=== PATIENT | female | born 1980 | race Caucasian/White ===

== ENCOUNTER 2024-04-19 15:20 | Emergency (ER) | payer BC, SELFPAY ==
--- NOTE | 2024-04-19 15:23 | ED.GENADULT ---
HPI - General Adult General Chief complaint: Urogenital-Female Stated complaint: needs prescription refill Time Seen by Provider: 04/19/24 15:24 Source: patient, RN notes reviewed and old records reviewed Mode of arrival: ambulatory Limitations: no limitations History of Present Illness HPI narrative: 44-year-old female presents to the [facility] requesting a refill on her Flomax. Had stents placed approximately 1 month ago. Reports trying to call his urologist has not gotten back to her She is due to have the stents removed at 9:30 a.m. at [facility] on the 21 of April, 2 days from Related Data Home Medications ?Medication ?Instructions ?Recorded ?Confirmed ?Last Taken ?Type bupropion HCl 150 mg 24 hr tablet, mg PO 03/13/24 Unknown History extended release levofloxacin 750 mg tablet mg 03/13/24 Unknown History metoprolol succinate 50 mg mg PO 03/13/24 Unknown History tablet,extended release 24 hr Allergies Allergy/AdvReac Type Severity Reaction Status Date / Time ampicillin Allergy Unknown Unknown Verified 04/19/24 15:29 fentanyl Allergy Unknown Unknown Verified 04/19/24 15:29 ketorolac Allergy Unknown Unknown Verified 04/19/24 15:29 meperidine Allergy Unknown Unknown Verified 04/19/24 15:29 metoclopramide Allergy Unknown Unknown Verified 04/19/24 15:29 morphine Allergy Unknown Unknown Verified 04/19/24 15:29 Penicillins Allergy Unknown Unknown Verified 04/19/24 15:29 promethazine Allergy Unknown Unknown Verified 04/19/24 15:29 Review of Systems Review of Systems: All systems reviewed & are unremarkable except as noted in HPI and below Constitutional: Constitutional: Reports no additional constitutional complaints ENT: Reports system reviewed and no additional complaints, except as documented Cardiovascular: Cardiovascular: Reports no additional cardiovascular complaints, Denies chest pain and Denies dyspnea Respiratory: Respiratory: Reports no additional respiratory complaints, Denies chest congestion, Denies cough and Denies dyspnea Musculoskeletal: Musculoskeletal: Reports no additional musculoskeletal complaints Integumentary/Breasts: Skin/Breast: Reports system reviewed and no additional complaints, except as docu PMFSH Past Medical History Medical History Depression Kidney stone Palpitations Surgical History Surgical History History of tonsillectomy H/O: hysterectomy Status post laser lithotripsy of ureteral calculus ureteral stent Family History Family History Mother Depression Hypertension Family history of elevated blood lipids Other Diabetes mellitus Family history of tuberculosis Social History Social History Smoking status: Unknown if ever smoked Alcohol intake: never Substance use: unknown Living arrangements: with family Gender identity (if verbalized by the patient): Female Comments At the time of my signature, I reviewed and agree with the nursing past medical, surgical, social, and family history. There is no relevant family history pertinent to the patient complaint. Exam Const: General: cooperative, healthy appearing, comfortable, no acute distress, well developed, alert and well nourished Nutritional Appearance: well nourished Orientation/consciousness: patient oriented x3 Limitations: no limitations HENMT: Head: normal to inspection Eyes: General: appearance normal, both eyes and all related structures Alignment and Position: alignment normal Neck: Neck: normal visual inspection, full ROM, no lymphadenopathy and no meningeal signs Chest: Chest palpation & inspection: normal inspection of the chest Resp: Effort & Inspection: normal respiratory effort and able to speak in complete sentences Auscultation: clear to auscultation bilaterally, no crackles, no rales, no rhonchi and no wheezes Cardio: Rate: regular rate : General: Yes no CVA tenderness Skin: General skin exam: normal color and no rashes or lesions noted Neuro: General: patient oriented x3, gait normal, moves all extremities and no meningeal signs Cognition (Neuro): normal cognition Speech: normal speech Gait exam (Neuro): Normal gait present Extrem: General: normal to inspection, full ROM, capillary refill normal and normal gait Psych: Appearance: grossly normal and well kempt Mental Status: mental status grossly normal Speech and movement: Normal speech and movement present and Clear speech present Affect: normal affect Attitude: cooperative Course Course Level of Care: Express Care Visit Vital Signs Vital signs: Vital Signs Temperature 98.5 F 04/19/24 15:24 Pulse Rate 85 04/19/24 15:24 Respiratory Rate 18 04/19/24 15:24 Blood Pressure 101/77 04/19/24 15:24 Pulse Oximetry 100 04/19/24 15:24 Oxygen Delivery Room Air 04/19/24 15:24 Temperature 98.5 F 04/19/24 15:24 Pulse Rate 85 04/19/24 15:24 Respiratory Rate 18 04/19/24 15:24 Blood Pressure 101/77 04/19/24 15:24 Pulse Oximetry 100 04/19/24 15:24 Oxygen Delivery Room Air 04/19/24 15:24 Reviewed Medical Decision Making MDM Narrative Medical decision making narrative: Patient sitting comfortably in exam room. Nontoxic, vitals stable. Patient in no acute distress Patient presents for a refill on Flomax. Will give a week supply. Is scheduled to appointment with 2 days. Patient appropriate for outpatient treatment with the Discharge instructions reviewed with patient, as well as provided in writing per nursing staff. The instructions also include specific and strict return/GO TO THE ER as well as f/u information. All questions have been answered, and the patient deny any further questions with discharge and discharge plan. Some parts of this dictation were generated by voice recognition software and may contain typographical and/or grammatical inaccuracies. Differential Diagnosis Differential Diagnosis: Medication refill kidney stone it is Medical Records Medical records reviewed: Yes I reviewed the external patient's medical records. Vital Signs Vital Signs: Vital Signs Temperature 98.5 F 04/19/24 15:24 Pulse Rate 85 04/19/24 15:24 Respiratory Rate 18 04/19/24 15:24 Blood Pressure 101/77 04/19/24 15:24 Pulse Oximetry 100 04/19/24 15:24 Oxygen Delivery Room Air 04/19/24 15:24 Temperature 98.5 F 04/19/24 15:24 Pulse Rate 85 04/19/24 15:24 Respiratory Rate 18 04/19/24 15:24 Blood Pressure 101/77 04/19/24 15:24 Pulse Oximetry 100 04/19/24 15:24 Oxygen Delivery Room Air 04/19/24 15:24 Reviewed Lab Data Lab results reviewed: Yes I reviewed the patient's lab results. Labs: Reviewed Critical Care Time Critical Care Time Critical Care Time: No Discharge Plan Discharge Clinical Impression: Medication refill, History of kidney stones Patient Disposition: Home, Self-Care Condition: Stable Instructions: Antibiotic Form, Kidney Stones (ED) Additional Instructions: Follow-up this week as already scheduled with your urologist Patient Language: Bulgarian Prescriptions: New tamsulosin [Flomax] 0.4 mg capsule 0.4 mg PO DAILY Qty: 7 0RF No Action metoprolol succinate 50 mg tablet extended release 24 hr PO levofloxacin 750 mg tablet bupropion HCl 150 mg tablet extended release 24 hr PO cetirizine [Zyrtec] 10 mg tablet 10 mg PO DAILY Qty: 20 0RF phenylephrine HCl [Sudafed PE] 10 mg tablet 10 mg PO Q4-6H PRN (Reason: nasal congestion) Qty: 20 0RF guaifenesin [Tussin] 100 mg/5 mL liquid 200 mg PO Q4H PRN (Reason: cough) Qty: 473 0RF Follow-up/Referrals: PHYSICIAN NOT ON STAFF,NONSTAFF [Primary Care Provider] - Stand Alone Forms: Work/School Release IP Time of Disposition: 15:36
[2024-04-19 15:24] VITALS: BP 101/77; PULSE 85; RESP 18; TEMP 36.9; O2SAT 100
--- OUTSIDE RECORDS SUMMARY | 2024-04-19 15:24 | XMS_ITS | Clinical Summary ---
Author Organization [facility] Address [address] [place] [id number] Care Team Providers Care Accounting File Clerk Name Role Phone Salomon Jones MD Primary Care Provider [phone] Allergies Active Allergy Reactions Criticality Noted Date Comments Ampicillin Rash,Hives Reaction: Rash, , Reaction: Hives, Diphenhydramine Other (See comments) Low 08/14/2017 Restless legs and anxiety Cyclobenzaprine Hydroxyzine Other (See comments) Low 08/14/2017 restlessness Ketorolac Nausea only,Vomiting Reaction: NAUSEA, VOMITING, , Metoclopramide Promethazine Other (See comments) Reaction: Other, Medications buPROPion XL (WELLBUTRIN XL) 150 mg 24 hr tablet take 1 tablet by oral route every day 30 3 08/08/2014 Active buPROPion XL (WELLBUTRIN XL) 300 mg 24 hr tablet take 1 tablet by oral route every day 30 3 08/18/2014 Active metoprolol (LOPRESSOR) 50 mg tablet Take 75 mg by mouth 2 (two) times a day. Active busPIRone (BUSPAR) 15 mg tabletIndication s:Generalized Anxiety Disorder Take 15 mg by mouth 2 (two) times a day. Active Active Problems Problem Noted Date Diagnosed Date Irritable bowel syndrome with diarrhea 8 Overview (07/23/2017): Added automatically from request for surgery [id number] History of colon polyps 07/23/2017 Overview (07/23/2017): Added automatically from request for surgery [id number] Palpitations 08/08/2014 Overview (06/05/2016): Palpitations Depression 08/08/2014 Overview (06/05/2016): Depression Cyclic vomiting syndrome 07/19/2009 Supraventricular tachycardia 07/19/2009 Encounters Date Type Department Care Team Description 03/04/2024 10:12 PM HEALTH CARE TECHNICIAN - 03/04/2024 11:59 PM HEALTH CARE TECHNICIAN Hospital Encounter [facility] Emergency, Room R Discharge Disposition: Discharge to home or self care 03/04/2024 12:37 PM HEALTH CARE TECHNICIAN - 03/04/2024 5:06 PM HEALTH CARE TECHNICIAN Emergency [facility] Emergency Department [address] [id number] Discharge Disposition: Left without being seen from Last 3 Months Surgical History Surgery Date Site/Laterality Comments HEMORRHOID SURGERY 03/02/2007 - 03/01/2008 Hemorrhoidectomy TONSILLECTOMY 03/02/1985 - 03/01/1986 Tonsillectomy SECTION 03/02/2002 - 03/01/2003 section PARTIAL HYSTERECTOMY partial hysterectomy APPENDECTOMY 03/02/2011 - 03/01/2012 Appendectomy CHOLECYSTECTOMY 03/02/2011 - 03/01/2012 Cholecystectomy COLONOSCOPY 08/01/2015 Medical History Medical History Date Comments Hx Other Medical 05/2014 heart palpatati ons; Comments: CLS 08/08/2014 - Anxiety disorder Anxiety Depression Depression Irritable bowel syndrome Chronic constipation Chronic diarrhea Family History Medical History Relation Name Comments Other Father Alive and well; DRS 08/10/2014 -has not seen since she was 3 y/o. Depression Mother Depression; Hyperlipidemia Mother High choleste rol; Hypertension Mother Hypertension; Relation Name Status Comments Father Alive Mother Social History Tobacco Use Types Packs/Day Years Used Date Smoking Tobacco: Former Cigarettes Q uit: 09/22/2014 Comments:Smoking History Pac ks/day: 8 Cigarettes Alcohol Use Standard Drinks/Week Comments Yes 0 (1 standard drink = 0.6 oz pur e alcohol) Personal Safety Answer Date Recorded Have you ever been in or are you currently in a harmful physical or emotional relationship or is someone making you feel afraid or unsafe? Denies 03/04/2024 Comments No Sex and Gender Information Value Date Recorded Sex Assigned at Not on file Legal Sex Female 12:38 AM HEALTH CARE TECHNICIAN Gender Identity Not on file Sexual Orientation Not on file Obstetrics History Last Filed Vital Signs Vital Sign Reading Time Taken Comments Blood Pressure 105/70 03/04/2024 12:47 PM HEALTH CARE TECHNICIAN Pulse 82 03/04/2024 12:47 PM HEALTH CARE TECHNICIAN Temperature 36.6 C (97.8 F) 03/04/2024 12:47 PM HEALTH CARE TECHNICIAN Respiratory Rate 16 03/04/2024 12:47 PM HEALTH CARE TECHNICIAN Oxygen Saturation 97% 03/04/2024 12:47 PM HEALTH CARE TECHNICIAN Inhaled Oxygen Concentration - - Weight 58.1 kg (128 lb) 03/04/2024 12:47 PM HEALTH CARE TECHNICIAN Height 154.9 cm (5' 1 ) 03/04/2024 12:47 PM HEALTH CARE TECHNICIAN Body Mass Index 24.19 03/04/2024 12:47 PM HEALTH CARE TECHNICIAN Plan of Treatment Health Maintenance Due Date Last Done Comments Breast Cancer Screening-Mammogram 1980 Depression Screening 1980 Hepatitis C Screening 1978 DTaP/Tdap/Td Vaccine (1 - Tdap) 1989 Hepatitis B Screening 1996 Regular Well Visit/Exam 18-64 1996 Influenza Vaccine (#1) 2023 Colon Cancer Screening-Colonoscopy 08/15/20272017 HPV Vaccines Aged Out No longer eligi ble based on patient's age to complete this topic Pneumococcal vaccine <65 Aged Out No longer eligible based on patient's age to complete this topic Procedures Procedure Name Priority Date/Time Associated Diagnosis Comments EGFR STAT 03/04/2024 1:10 PM HEALTH CARE TECHNICIAN DIFFERENTIAL AUTO STAT 03/04/2024 1:1 0 PM HEALTH CARE TECHNICIAN LIPASE STAT 03/04/2024 1:10 PM HEALTH CARE TECHNICIAN COMPREHENSIVE METABOLIC PANEL STAT 03/04/2024 1:10 PM HEALTH CARE TECHNICIAN CBC WITH AUTO DIFFERENTIAL STAT 03/04/2024 1:10 PM HEALTH CARE TECHNICIAN COLONOSCOPY 08/14/2017 10:18 AM CDT from Last 3 Months or Most Recently Relevant to Health Maintenance Results * eGFR (03/04/2024 1:10 PM HEALTH CARE TECHNICIAN) eGFR 80 >=60 mL/min/1. 73 m2 Comment: Interpretive Data Reference Interval Normal >/= 90 mL/min/1.73m2 Mildly decreased* 60 - 89 mL/min/1.73m2 Mildly to moderately decreased 45 - 59 mL/min/1.73m2 Moderately to severely decreased 30 - 44 mL/min/1.73m2 Severely decreased 15 - 29 mL/min/1.73m2 Kidney Failure < 15 mL/min/1.73m2 *Relative to young adult level Estimated glomerular filtration rate is determined by the 2020 CKD-EPI equation recommended by the National Kidney Foundation (A Unifying Approach to GFR Estimation: Recommendations of the NKF-ASK Task Force on Reassessing the Inclusion of Race in Diagnosing Kidney Disease, JASN 2020). The CKD-EPI equation should not be used for patients with unstable renal function and has not been validated in children and those over 70. Current interpretive data was last reviewed 2020. Blood 03/04/2024 1:10 PM HEALTH CARE TECHNICIAN 03/04/2024 1:15 PM HEALTH CARE TECHNICIAN us Parth Perdomo MD LAB BLOOD ORDERABLES Final R esult [facility] ([place]) 1 [facility] Department [place] [address] * Differential, auto (03/04/2024 1:10 PM HEALTH CARE TECHNICIAN) Pathologist [facility] Neutrophil abs 4.0 1.5 - 6.5 K/cumm Imm gran abs 0.0 0.0 - 0.1 K/cumm [facility] ([place]) Lymphocyte abs 1.1 0.8 - 3.3 K/cumm [facility] ([place]) Monocyte abs 0.7 0.2 - 0.8 K/cumm [facility] ([place]) Eosinophil abs 0.2 0.0 - 0.5 K/cumm [facility] ([place]) Basophil abs 0.0 0.0 - 0.1 K/cumm [facility] ([place]) Neutrophil pct 65.5 % [facility] ([place]) Comment: Interpretive Data Percent cell count reference ranges are not reported, since discordance with absolute values may lead to misinterpretation of CBC data. Current Interpretive Data was last revised on 2017. Imm gran pct 0.7 % [facility] ([place]) Comment: Interpretive Data Percent cell count reference ranges are not reported, since discordance with absolute values may lead to misinterpretation of CBC data. Current Interpretive Data was last revised on 2017. Lymphocyte pct 18.6 % [facility] ([place]) Comment: Interpretive Data Percent cell count reference ranges are not reported, since discordance with absolute values may lead to misinterpretation of CBC data. Current Interpretive Data was last revised on 2017. Monocyte pct 12.1 % [facility] ([place]) Comment: Interpretive Data Percent cell count reference ranges are not reported, since discordance with absolute values may lead to misinterpretation of CBC data. Current Interpretive Data was last revised on 2017. Eosinophil pct 2.4 % [facility] ([place]) Comment: Interpretive Data Percent cell count reference ranges are not reported, since discordance with absolute values may lead to misinterpretation of CBC data. Current Interpretive Data was last revised on 2017. Basophil pct 0.7 % [facility] ([place] Comment: Interpretive Data Percent cell count reference ranges are not reported, since discordance with absolute values may lead to misinterpretation of CBC data. Current Interpretive Data was last revised on 2017. Blood 03/04/2024 1:10 PM HEALTH CARE TECHNICIAN 03/04/2024 1:15 PM HEALTH CARE TECHNICIAN us Parth Perdomo MD LAB BLOOD ORDERABLES Final R esult [facility] ([place]) 1 [facility] Department of Laboratories [place], [place] [id number] * CBC with auto differential (03/04/2024 1:10 PM HEALTH CARE TECHNICIAN) WBC 6.1 3.8 - 9.9 K/cumm Hgb 13.8 11.9 - 15.5 g/dL [facility] ([place]) Hct 41.6 35.6 - 45.5 % [facility] ([place]) Plt 371 150 - 400 K/cumm [facility] ([place]) MPV 10.0 9.1 - 12.3 fL [facility] ([place]) RBC 4.61 3.90 - 5.20 M/cumm [facility] ([place]) MCV 90.2 81.3 - 96.4 fL [facility]) MCH 29.9 27.1 - 33.3 pg [facility]) MCHC 33.2 32.3 - 35.7 g/dL [facility] ([place]) RDW CV 12.6 11.1 - 14.9 % [facility]) RDW SD 41.4 35.7 - 48.1 fL [facility] ([place]) NRBC abs 0.00 0.00 - 0.01 K/cumm [facility] ([place]) Blood (Blood, Venous) 03/04/2024 1:10 PM HEALTH CARE TECHNICIAN 03/04/2024 1:15 PM HEALTH CARE TECHNICIAN Parth Pedromo MD LAB BLOOD ORDERABLES Final R esult [facility] ([place]) 1 [facility] [place] [address] * Lipase (03/04/2024 1:10 PM HEALTH CARE TECHNICIAN) Lipase 17 10 - 99 Units/L Blood (Blood, Venous) 03/04/2024 1:10 PM HEALTH CARE TECHNICIAN 03/04/2024 1:15 PM HEALTH CARE TECHNICIAN Parth Perdomo MD LAB BLOOD ORDERABLES Final R esult [facility] ([place]) 1 [facility] [place] [address] * Comprehensive metabolic panel (03/04/2024 1:10 PM HEALTH CARE TECHNICIAN) Sodium 136 135 - 145 mmol/L Potassium, pl 4.5 3.3 - 4.9 mmol/L [facility] Chloride 101 97 - 110 mmol/L [facility]) CO2 26 22 - 32 mmol/L [facility]) Anion gap 10 2 - 15 mmol/L [facility]) BUN 14 6 - 25 mg/dL [facility]) Creatinine 0.90 0.60 - 1.10 mg/dL [facility]) Glucose 97 70 - 199 mg/dL [facility] ([place]) Comment: Interpretive Data Fasting glucose >/= 126 mg/dl is diagnostic for diabetes. Fasting is defined as no caloric intake for at least 8 hours. Fasting glucose between 100 mg/dl to 125 mg/dl is diagnostic of prediabetes. In a patient with classic symptoms of hyperglycemia or hyperglycemic crisis, a random glucose >/= 200 mg/dl is diagnostic for diabetes. In the absence of unequivocal hyperglycemia, results should be confirmed by repeat testing. The classification and Diagnosis of Diabetes Diabetes Care 2021; 46: S19-S40. Current interpretive data was last revised 2022. Calcium 9.3 8.5 - 10.3 mg/dL [facility]) Bilirubin, total 0.3 0.1 - 1.2 mg/dL [facility] ([place]) Protein, pl 7.1 6.5 - 8.5 g/dL [facility]) Albumin 4.3 3.5 - 5.0 g/dL [facility]) Alk phos 64 40 - 130 Units/L [facility]) ALT 22 7 - 45 Units/L [facility] AST 24 10 - 45 Units/L [facility] ([place] Comment: Hemolysis present. Results may be affected. Slightly Hemolyzed Specimen Blood (Blood, Venous) 03/04/2024 1:10 PM HEALTH CARE TECHNICIAN 03/04/2024 1:15 PM HEALTH CARE TECHNICIAN Parth Perdomo MD LAB BLOOD ORDERABLES Final R esult [facility] ([place] 1 [facility] Department [place] [address] * COLONOSCOPY (08/14/2017 10:18 AM CDT) Anatomical Region Laterality Modality Other Narrative Procedure Note David Liz MD - 08/14/2017 10:18 AM CDT [facility] Patient Name: Parisa Padron Procedure Date: 08/14/2017 10:18 AM Date of : 1980 Admit Type: Outpatient Age: 37 Gender: Female Attending MD: David Liz M.D. Room: [facility] ENDOSCOPY ROOM 1 Note Status: Finalized Procedure: Colonoscopy Indications: Last colonoscopy: August 2015, Generalized abdominal pain, Chronic diarrhea, Diarrhea Referring MD: Lakshmi Michael M.D. Providers: David Liz M.D. Impression: - Hemorrhoids found on perianal exam. - The entire examined colon is normal. - The examined portion of the ileum was normal. - No specimens collected. Recommendation: - Discharge patient to home. - Resume previous diet. - Continue present medications. - Repeat colonoscopy in 10 years for screeningpurposes. - Return to primary care physician as previously scheduled. Medicines: Propofol per Anesthesia Complications: No immediate complications. Estimated Blood Loss: Estimated blood loss: none. Procedure: The benefits, risks and alternatives of theprocedure and sedation were discussed and informed consent was obtained. All questions were answered. Please referto the signed informed consent document in the medical record. The scope was passed under direct vision.The Colonoscope [id number] was introducedthrough the anus and advanced to the 10 cm into the ileum.The colonoscopy was performed without difficulty. The patient tolerated the procedure well. The quality of the bowel preparation was good. Findings: Hemorrhoids were found on perianal exam. The colon (entire examined portion) appeared normal. The terminal ileum appeared normal. Electronically signed by David Liz M.D. David Liz M.D. 08/14/2017 10:57:23 AM Number of Addenda: 0 Note Initiated On: 08/14/2017 10:18 AM Procedure Code(s): --- Professional --- 18397, Colonoscopy, flexible; diagnostic, including collection of specimen(s) by brushing or washing, when performed (separateprocedure) Diagnosis Code(s): --- Professional --- R19.7, Diarrhea, unspecified K52.9, Noninfective gastroenteritis and colitis, unspecified R10.84, Generalized abdominal pain K64.9, Unspecified hemorrhoids CPT copyright 2017 [employer]. All rights reserved. The codes documented in this report are preliminary and upon health information coder reviewmay be revised to meet current compliance requirements. Recognized by the [employer] for promoting quality in endoscopy David Liz MD ENDOSCOPY PROCEDURES Final Re sult from Last 3 Months or Most Recently Relevant to Health Maintenance Insurance IDPA IDDC Member Subscriber Plan / Payer (Ef fective 2017-Present) Name:Parisa HERNANDEZ Relation to Subscriber:Self Name:Parisa HERNANDEZ Payer ID:[id number] Group ID:Not on file Type:[place]ICAID [place] Address: [place] [id number] PLAN Advance Directives For more information, please contact: [phone] * Full Code (Latest Code Status on File) Date Activated Date Inactivated Comments 08/14/2017 9:43 AM 08/14/2017 1:47 PM Care Teams Accounting File Clerk Relationship Specialty Start Date End Date Salomon Jones MD PCP - General Internal Medicine 12/29/21
--- OUTSIDE RECORDS SUMMARY | 2024-04-19 15:24 | XMS_ITS ---
Author Organization [facility] Address [address] [place] [address] Care Team Providers Care [employer] Name Role Phone Farzaneh Padron Primary Care Provider Hanny Monet Unavailable Lynette Dahl Unavailable [phone] REASON FOR VISIT Aftercare Encounters Encounter Location Date Provider Diagnosis [address] [place] [address] 10/09/2023 Lynette Dahl Plan Of Treatment No Information Progress Notes * Mike GEEOB: 9 (43 yo F)Acc No.[id number]:10/09/2023 Patient: Marilu HAGAN Parisa :1980 A ge:43 Y S ex:Female Address:[address] [place], [address] * true * Date: Generated for Printi ng/Fasydneyg/eTransmitting on: 0 04/19/2024 03:24 PM SENIOR BUSINESS ARCHITECT
--- OUTSIDE RECORDS SUMMARY | 2024-04-19 15:24 | XMS_ITS | Referral Summary ---
Author Organization [facility] Address [address] [place] [address] Care Team Providers Care Network Firewall Engineer Name Role Phone Salomon Jones MD Primary Care Provider [phone] Encounters Date Type Department Care Team Description 03/04/2024 10:12 PM TALENT DEVELOPMENT ANALYST - 03/04/2024 11:59 PM TALENT DEVELOPMENT ANALYST Hospital Encounter [facility] Emergency, Room R Discharge Disposition: Discharge to home or self care 03/04/2024 12:37 PM TALENT DEVELOPMENT ANALYST - 03/04/2024 5:06 PM TALENT DEVELOPMENT ANALYST Emergency [facility] Emergency Department [address] [place] [address] Discharge Disposition: Left without being seen from Last 3 Months Allergies Active Allergy Reactions Criticality Noted Date [...] (07/23/2017): Added automatically from request for surgery [id number] History of colon polyps 07/23/2017 Overview (07/23/2017): Added automatically from request for surgery [id number] Palpitations 08/08/2014 Overview (06/05/2016): Palpitations Depression 08/08/2014 Overview (06/05/2016): Depression Cyclic vomiting syndrome 07/19/2009 Supraventricular tachycardia 07/19/2009 Social History Tobacco Use Types Packs/Day Years [...] on file Legal Sex Female 12:38 AM TALENT DEVELOPMENT ANALYST Gender Identity Not on file Sexual Orientation Not on file Last Filed Vital Signs Vital Sign Reading Time Taken Comments Blood Pressure 105/70 03/04/2024 12:47 PM TALENT DEVELOPMENT ANALYST Pulse 82 03/04/2024 12:47 PM TALENT DEVELOPMENT ANALYST Temperature 36.6 C (97.8 F) 03/04/2024 12:47 PM TALENT DEVELOPMENT ANALYST Respiratory Rate 16 03/04/2024 12:47 PM TALENT DEVELOPMENT ANALYST Oxygen Saturation 97% 03/04/2024 12:47 PM TALENT DEVELOPMENT ANALYST Inhaled Oxygen Concentration - - Weight 58.1 kg (128 lb) 03/04/2024 12:47 PM TALENT DEVELOPMENT ANALYST Height 154.9 cm (5' 1 ) 03/04/2024 12:47 PM TALENT DEVELOPMENT ANALYST Body Mass Index 24.19 03/04/2024 12:47 PM TALENT DEVELOPMENT ANALYST Plan of Treatment Not on file Procedures Procedure Name Priority Date/Time Associated Diagnosis Comments EGFR STAT 03/04/2024 1:10 PM TALENT DEVELOPMENT ANALYST DIFFERENTIAL AUTO STAT 03/04/2024 1:1 0 PM TALENT DEVELOPMENT ANALYST LIPASE STAT 03/04/2024 1:10 PM TALENT DEVELOPMENT ANALYST COMPREHENSIVE METABOLIC PANEL STAT 03/04/2024 1:10 PM TALENT DEVELOPMENT ANALYST CBC WITH AUTO DIFFERENTIAL STAT 03/04/2024 1:10 PM TALENT DEVELOPMENT ANALYST COLONOSCOPY 08/14/2017 10:18 AM CDT from Last 3 Months or Most Recently Relevant to Health Maintenance Results * eGFR (03/04/2024 1:10 PM TALENT DEVELOPMENT ANALYST) eGFR 80 >=60 mL/min/1. 73 m2 Comment: [...] last reviewed 2020. Blood 03/04/2024 1:10 PM TALENT DEVELOPMENT ANALYST 03/04/2024 1:15 PM TALENT DEVELOPMENT ANALYST us Parth Perdomo MD LAB BLOOD ORDERABLES Final R esult [facility] [place] 1 [facility] Department [place] [address] * Differential, auto (03/04/2024 1:10 PM TALENT DEVELOPMENT ANALYST) Neutrophil abs 4.0 1.5 - 6.5 K/cumm [...] revised on 2017. Monocyte pct 12.1 % [facility] ([place]) Comment: Interpretive Data [...] revised on 2017. Basophil pct 0.7 % [facility] ([place]) Comment: Interpretive Data Percent cell count reference ranges are not reported, since discordance with absolute values may lead to misinterpretation of CBC data. Current Interpretive Data was last revised on 2017. Blood 03/04/2024 1:10 PM TALENT DEVELOPMENT ANALYST 03/04/2024 1:15 PM TALENT DEVELOPMENT ANALYST Parth Perdomo MD LAB BLOOD ORDERABLES Final R esult [facility] ([place]) 1 [facility] [place] [address] * CBC with auto differential (03/04/2024 1:10 PM TALENT DEVELOPMENT ANALYST) WBC 6.1 3.8 - 9.9 K/cumm Hgb 13.8 11.9 - 15.5 g/dL [facility] ([place]) Hct 41.6 35.6 - 45.5 % [...] RDW SD 41.4 35.7 - 48.1 fL [facility]) NRBC abs 0.00 0.00 - 0.01 K/cumm [facility] ([place]) Blood (Blood, Venous) 03/04/2024 1:10 PM TALENT DEVELOPMENT ANALYST 03/04/2024 1:15 PM TALENT DEVELOPMENT ANALYST Parth Perdomo MD LAB BLOOD ORDERABLES Final R esult [facility] ([place] 1 [facility] [place] [address] * Lipase (03/04/2024 1:10 PM TALENT DEVELOPMENT ANALYST) Lipase 17 10 - 99 Units/L Blood (Blood, Venous) 03/04/2024 1:10 PM TALENT DEVELOPMENT ANALYST 03/04/2024 1:15 PM TALENT DEVELOPMENT ANALYST Parth Perdomo MD LAB BLOOD ORDERABLES Final R esult [facility] ([place]) 1 [facility] Department [place] [address] * Comprehensive metabolic panel (03/04/2024 1:10 PM TALENT DEVELOPMENT ANALYST) Sodium 136 135 - 145 mmol/L Potassium, pl 4.5 3.3 - 4.9 mmol/L [facility] Chloride 101 97 - 110 mmol/L [facility]) CO2 26 22 - 32 mmol/L [facility] Anion gap 10 2 - 15 mmol/L [facility] BUN 14 6 - 25 mg/dL [facility] Creatinine 0.90 0.60 - 1.10 mg/dL [facility] Glucose 97 70 - 199 mg/dL [facility] Comment: Interpretive Data Fasting glucose [...] classification and Diagnosis of Diabetes Diabetes Care 202; 46: S19-S40. Current interpretive data was last revised 2022. Calcium 9.3 8.5 - 10.3 mg/dL [facility] Bilirubin, total 0.3 0.1 - 1.2 mg/dL [facility] ([place] Protein, pl 7.1 6.5 - 8.5 g/dL [facility]) Albumin 4.3 3.5 - 5.0 g/dL [facility] Alk phos 64 40 - 130 Units/L [facility] ([place]) ALT 22 7 - 45 Units/L [facility] AST 24 10 - 45 Units/L [facility] ([place] Comment: Hemolysis present. Results may be affected. Slightly Hemolyzed Specimen Blood (Blood, Venous) 03/04/2024 1:10 PM TALENT DEVELOPMENT ANALYST 03/04/2024 1:15 PM TALENT DEVELOPMENT ANALYST Parth Perdomo MD LAB BLOOD ORDERABLES Final R esult [facility] ([place]) 1 [facility] Department [place] [address] * COLONOSCOPY (08/14/2017 10:18 AM CDT) Anatomical Region Laterality Modality Other Narrative Procedure Note David Liz MD - 08/14/2017 10:18 AM CDT [facility] Patient Name: Parisa Padron Procedure Date: 08/14/2017 10:18 AM Date of : 1980 Admit Type: Outpatient Age: 37 Gender: Female Attending MD: David Liz M.D. Room: [facility] ENDOSCOPY ROOM 1 Note Status: Finalized [...] scope was passed under direct vision.The Colonoscope [id number] was introducedthrough the anus and advanced to [...] 10:18 AM Procedure Code(s): --- Professional --- 80893, Colonoscopy, flexible; diagnostic, including collection of specimen(s) by brushing or washing, when performed (separateprocedure) Diagnosis Code(s): --- Professional --- R19.7, Diarrhea, unspecified K52.9, Noninfective gastroenteritis and colitis, unspecified R10.84, Generalized abdominal pain K64.9, Unspecified hemorrhoids CPT copyright 2017 [employer]. All rights reserved. The codes documented in this report are preliminary and upon orthopaedic technologist reviewmay be revised to meet current compliance requirements. Recognized by the [employer] for promoting quality in endoscopy David Liz MD ENDOSCOPY PROCEDURES Final Re sult from Last 3 Months or Most Recently Relevant to Health Maintenance Insurance PLAN [place] [id number] Advance Directives For more information, please contact: [phone] * Full Code (Latest Code Status on File) Date Activated Date Inactivated Comments 08/14/2017 9:43 AM 08/14/2017 1:47 PM Care Teams Network Firewall Engineer Relationship Specialty Start Date End Date Salomon Jones MD PCP - General Internal Medicine 12/29/21
--- OUTSIDE RECORDS SUMMARY | 2024-04-19 15:25 | XMS_ITS | Encounter Summary ---
Author Organization [facility] Address [address] [place] [address] Phone Care Team Providers Care Nickel Plater Name Role Phone Aubree Alvarez APRN, FINE CHEMICALS OPERATOR Primary Care Provider [phone]- [phone] Niranjan Valdez MD Unavailable Encounter Details Date Type Department Care Team (Late st Contact Info) Description 03/24/2024 Results Follow-Up [facility] [address] [place] [id number] Niranjan Valdez MD [address] [address] Social History Tobacco Use Types Packs/Day Years Used Date Smoking Tobacco: Former Cigarettes 0 07/01/2015 - 06/30/2016 Smokeless Tobacco: Never Alcohol Use Standard Drinks/Week Comments Not Currently 0 (1 standard drink = 0.6 oz pur e alcohol) [facility] Utilities Answer Date Recorded In the past 12 months has [employer] electric, gas, oil, or water company threatened to shut off services in your home? Patient declined 03/05/2024 Social Connection and Isolation Panel [NHANES] A nswer Date Recorded In a typical week, how many times do you talk on the phone with family, friends, or neighbors? Patient declined 03/05/2024 How often do you get togethe r with friends or relatives? Patient declined 03/05/2024 How often do you attend hindu or uatsdin serv ices? Patient declined 03/05/2024 Do you belong to any clubs o r organizations such as hindu groups, unions, fraternal or athletic groups, or school groups? Patient declined 03/05/2024 How often do you attend meet ings of the clubs or organizations you belong to? Patient declined 03/05/2024 Are you , , di vorced, , never , or living with a partner? Patient declined 03/05/2024 AUDIT-C Answer Date Recorded Q1: How often do you have a drink containing alc ohol? Patient declined 03/05/2024 Q2: How many drinks containi ng alcohol do you have on a typical day when you are drinking? Patient declined 03/05/2024 Q3: How often do you have si x or more drinks on one occasion? Patient declined 03/05/2024 Overall Financial Resource Strain (CARDIA) Answe r Date Recorded How hard is it for you to pa y for the very basics like food, housing, medical care, and heating? Patient declined 03/05/2024 PHQ-2 Answer Date Recorded Total Score - Questions 1-9 7 04/2024 [facility] - Occupational Stress Questionnaire Answer Date Recorded Do you feel stress - tense, restless, nervous, or anxious, or unable to sleep at night because your mind is troubled all the time - these days? Patient declined 03/05/2024 Exercise Vital Sign Answer Date Recorde d On average, how many days pe r week do you engage in moderate to strenuous exercise (like a brisk walk)? Patient declined On average, how many minutes do you engage in exercise at this level? Patient declined 03/05/2024 Hunger Vital Sign Answer Date Recorded Within the past 12 months, y ou worried that your food would run out before you got the money to buy more. Patient declined Within the past 12 months, t he food you bought just didn't last and you didn't have money to get more. Patient declined 05/2024 PRAPARE - Transportation Answer Date Re corded In the past 12 months, has l ack of transportation kept you from medical appointments or from getting medications? Patient declined 03/05/2024 In the past 12 months, has l ack of transportation kept you from meetings, work, or from getting things needed for daily living? Patient declined 03/05/2024 Housing Stability Vital Sign Answer Shivam e Recorded In the last 12 months, was t here a time when you were not able to pay the mortgage or rent on time? Patient declined 03/05/19 25 In the past 12 months, how m any times have you moved where you were living? 0 03/05/2024 At any time in the past 12 m [facility], were you homeless or living in a assisted (including now)? 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 Simentalqs message. CT SUPPORT PROFESSIONAL CAREGIVER * Niranjan Valdez MD - 03/24/2024 4:01 PM CST Urine culture 03/22/2024 = essentially negative. KUB 03/22/2024 = left proximal ureteral stone seen. Plan: Left ureteral ESWL, possible flexible cystoscopy and stent removal. CT SUPPORT PROFESSIONAL CAREGIVER documented in this encounter Miscellaneous Notes * Telephone Encounter - Niranjan Valdez MD - 03/24/2024 3:59 PM CST Images from the original note were not included. Urine culture 03/22/2024 = essentially negative. KUB 03/22/2024 = left proximal ureteral stone seen. Plan: Left ureteral ESWL, possible cystoscopy and stent removal. CT SUPPORT PROFESSIONAL CAREGIVER documented in this encounter Plan of Treatment Upcoming Encounters Date Type Department Care Team (Latest Contact Info) Description 04/21/2024 11:40 AM DIRECT SUPPORT PROFESSIONAL CAREGIVER [facility] [address] [place] [id number] Niranjan Valdez MD #[address] [address] 04/21/2024 11:40 AM DIRECT SUPPORT PROFESSIONAL CAREGIVER - 04/21/2024 1:10 PM DIRECT SUPPORT PROFESSIONAL CAREGIVER Surgery [facility] Periop [address] [place] [address] Niranjan Valdez MD #[address] [address] LEFT URETERAL EXTRACORPORAL SHOCKWAVE LITHOTRIPSY, [place] STONE CONF FOR 04/21 AT 1200 - JS Scheduled Procedures Name Priority Associated Diagnoses Date/Ti id ESWL LEFT KIDNEY STONE 04/21/2024 11:40 AM DIRECT SUPPORT PROFESSIONAL CAREGIVER CYSTOSCOPY FLEXIBLE LEFT KIDNEY STONE 04/21/2024 11:40 AM DIRECT SUPPORT PROFESSIONAL CAREGIVER CYSTO STENT REMOVAL (SINGLE/BILATERAL) LEFT KIDNEY STONE 04/21/2024 11:40 AM DIRECT SUPPORT PROFESSIONAL CAREGIVER documented as of this encounter Visit Diagnoses Not on filedocumented in this encounter Additional Health Concerns Assessment Noted Time PHQ-9 Depression Total Score: 7 03/03/19 1:52 PM DIRECT SUPPORT PROFESSIONAL CAREGIVER documented as of this encounter Care Teams Nickel Plater Relationship Specialty Start Date End Date Aubree Alvarez, CERTIFIED EMERGENCY VEHICLE TECHNICIAN, FINE CHEMICALS OPERATOR [address] [place] [address] PCP - General Certified Nurse Practitioner 03/01/24 Niranjan Valdez MD #[address] [address] Consulting Physician Urology 03/14/24 documented as of this encounter
--- OUTSIDE RECORDS SUMMARY | 2024-04-19 15:25 | XMS_ITS | Encounter Summary ---
Author Organization [facility] Address [address] [place] [address] Phone Care Team Providers Care Wrap Yarn Sorter Name Role Phone Provider, None Primary Care Provider UnavailAubree Sexton APRN, STAMP PRESS OPERATOR Primary Care Provider [phone] Mana Hinson Unavailable Unavailable Niranjan Valdez MD Unavailable Reason for Visit * Reason Comments Medication Refill Encounter Details Date Type Department Care Team (Late st Contact Info) Description 04/04/2021 Refill [facility] [place] #[address] [place] [phone] Jennifer Mcwilliams, [facility] [address] [place] [address] Medication Refill Social History Tobacco Use Types Packs/Day Years Used Date Smoking Tobacco: Former Cigarettes 0 07/01/2015 - 06/30/2016 Smokeless Tobacco: Never Alcohol Use Standard Drinks/Week Comments No 0 (1 standard drink = 0.6 oz pur e alcohol) Sexually Active Control Partners Comments Yes Male Comments No Sex and Gender Information Value Date Recorded Sex Assigned at Female 03/05/2024 12:21 AM DRIVER SUPERVISOR Legal Sex Female 8:44 PM CDT Gender Identity Female 03/05/2024 12:21 AM DRIVER SUPERVISOR Sexual Orientation Not on file 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 Not on file documented as of this encounter Plan of Treatment Upcoming Encounters Date Type Department Care Team (Latest Contact Info) Description 04/21/2024 11:40 AM DRIVER SUPERVISOR [facility] 1 [facility] [place] [address] Niranjan Valdez MD [address] [address] 04/21/2024 11:40 AM DRIVER SUPERVISOR - 04/21/2024 1:10 PM DRIVER SUPERVISOR [facility] [address] [place] [address] Niranjan Valdez MD #[address] [address] LEFT URETERAL EXTRACORPORAL SHOCKWAVE LITHOTRIPSY, [facility] ST[facility] CONF FOR 04/21 AT 1200 - JS Scheduled Procedures Name Priority Associated Diagnoses Date/Ti me ESWL LEFT KIDNEY STONE 04/21/2024 11:40 AM DRIVER SUPERVISOR CYSTOSCOPY FLEXIBLE LEFT KIDNEY STONE 04/21/2024 11:40 AM DRIVER SUPERVISOR CYSTO STENT REMOVAL (SINGLE/BILATERAL) LEFT KIDNEY STONE 04/21/2024 11:40 AM DRIVER SUPERVISOR documented as of this encounter Visit Diagnoses Diagnosis Tachycardia Tachycardia, unspecified documented in this encounter Additional Health Concerns Assessment Noted Time PHQ-9 Depression Total Score: 16 018 10:00 AM CDT documented as of this encounter Care Teams Wrap Yarn Sorter Relationship Specialty Start Date End Date Provider, None [place] PCP - General 11/26/21 02/29/24 Aubree Alvarez, FLOWER PICKER, STAMP PRESS OPERATOR [address] [place] [address] PCP - General Certified Nurse Practitioner 03/01/24 Mana Hinson Health Customer Security Clerk 03/03/24 03/18/24 Niranjan Valdez MD #[address] [address] Consulting Physician Urology 03/14/24 documented as of this encounter
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
--- OUTSIDE RECORDS SUMMARY | 2024-04-19 15:25 | XMS_ITS | Clinical Summary ---
Author Organization [facility] Address [address] [place] [address] Phone Care Team Providers Care Log Haul Operator Name Role Phone Aubree Alvarez APRN, DESIGN CONSULTANT Primary Care Provider [phone] Niranjan Valdez MD Unavailable Allergies Active Allergy Reactions Criticality Noted Date Comments Ampicillin Unknown 01/23/2015 Diphenhydramine Hcl (Sleep) Anxiety 02/14/2015 Prochlorperazine Maleate Anxiety 02/14/2015 Fentanyl Other (see Comments) 03/04/2024 Restless legs Metoclopramide Hcl Other (see Comments) 04/08/2015 STATES CAUSES LEG CRAMPS Ketorolac Tromethamine Rash Medium 01/23/2015 Medications metoprolol tartrate (LOPRESSOR) 50 MG TabletIndicati ons:Tachycardi a Take 1 Tab by mouth 2 times daily. 180 Tab 3 8 Active buPROPion (WELLBUTRIN) 150 MG XL tablet Take 1 Tablet by mouth every morning. 90 Tablet 4 Active ondansetron (Zofran) 4 MG Tablet Take 1 Tablet by mouth every 8 hours as needed for Nausea - 1st line. 30 Tablet 5 Active baclofen (LIORESAL) 10 MG Tablet Take 1 Tablet by mouth every 8 hours as needed for Muscle spasms. 90 Tablet 5 Active oxybutynin (DITROPAN) 5 MG Tablet Take 1 Tablet by mouth every 12 hours as needed (bladder spasms) for up to 180 doses. 180 Tablet 5 Active naloxone HCl (Narcan) 4 MG/0.1ML Liquid 1 [place] by Nasal route as needed for Opioid Reversal. Administer in one nostril for symptoms of overdose (severe sleepiness, breathing problems, not responsive). Call 911. May repeat 1 spray in alternate nostril in 2-3 minutes if needed. 2 Each 5 Active cetirizine (ZyrTEC) 10 MG Tablet Take 10 mg by mouth daily. 5 Active metoprolol Succinate (TOPROL-XL) 50 MG TABLET SR 24 HR Take 50 mg by mouth 2 times daily. 4 Active tamsulosin (FLOMAX) 0.4 MG Capsule Take 1 Capsule by mouth daily. 5 Active oxyCODONE (ROXICODONE) 5 MG TabletIndicati ons:Kidney stone Take 1 Tablet by mouth every 6 hours as needed for Severe pain. 8 Tablet 5 Active levoFLOXacin (LEVAQUIN) 750 MG Tablet Take 1 Tablet by mouth daily for 12 days. 12 Tablet 5 03/20/19 25 oxyCODONE (ROXICODONE) 5 MG TabletIndicati ons:Kidney stone Take 1 Tablet by mouth every 6 hours as needed for Severe pain. 8 Tablet 5 03/28/19 25 Discontinu ed(Reorder ) Active Problems Problem Noted Date Diagnosed Date Insomnia 01/26/2018 Vitamin D deficiency 07/14/2017 Anxiety 04/08/2015 Tachycardia 04/08/2015 Intractable nausea and vomiting 04/08/2015 Hypokalemia 04/08/2015 Chest pain, non-cardiac 04/08/2015 Depression 01/23/2015 Weight loss 01/23/2015 Irritable bowel syndrome with diarrhea 5 Resolved Problems Problem Noted Date Diagnosed Date Resolved Date Kidney stone 03/05/2024 03/08/2024 Nephrolithiasis 03/05/2024 03/08/2024 TIA (transient ischemic attack) 03/08/2024 Encounters Date Type Department Care Team Description 04/13/2024 Travel 04/07/2024 Telephone [facility] [address] [place] [address] Niranjan Valdez MD Medication Management 03/31/2024 Telephone [facility] [address] [place] [address] Niranjan Valdez MD 03/28/2024 Refill [facility]IAN [facility] [address] [place] [address] Niranjan Valdez MD Medication Refill 03/24/2024 Results Follow-Up [facility] PHYSICIAN [facility] [address] [place] [address] Niranjan Valdez MD 03/22/2024 8:40 AM HEALTH CARE ADMINISTRATOR - 03/22/2024 11:59 PM HEALTH CARE ADMINISTRATOR Hospital Encounter [facility] Diagnostic Radiology [address] [place] [address] Niranjan Valdez MD Discharge Disposition: Discharged to home or Selfcare 03/22/2024 8:30 AM HEALTH CARE ADMINISTRATOR Clinical Support [facility] PHYSICIAN [facility] UR[facility] [address] [place] [phone] NurseTristen Urology Kidney stone (Primary Dx) Discharge Disposition: Discharged to home or Selfcare 03/22/2024 Travel 03/18/2024 Patient Outreach [facility] [address] [place], [place] [phone] Mana Hinson Care Management (Bi-weekly monitoring call) 03/17/2024 Telephone [facility] [address] [place] [address] Niranjan Valdez MD 03/16/2024 Patient Outreach [facility] [address] [place] [address] Nessa Gusman RN Transition of Care (Week 1) 03/10/2024 Telephone [facility] UR[facility]Y [address] [place] [address] Niranjan Valdez MD 03/09/2024 Patient Outreach [facility] [address] [place] [phone] Asya Zayas, client director of Care (TCM 1st attempt) 03/05/2024 8:36 AM HEALTH CARE ADMINISTRATOR [facility]est[facility] [address] [place] [address] Ancelmo Jurado APRN, CERTIFIED ENDOSCOPY TECHNICIAN 03/05/2024 8:30 AM HEALTH CARE ADMINISTRATOR - 03/05/2024 9:35 AM HEALTH CARE ADMINISTRATOR [facility] [address] [place] [address] Niranjan Valdez MD CYSTOSCOPY STENT INSERTION-LEFT 03/05/2024 12:11 AM HEALTH CARE ADMINISTRATOR - 03/08/2024 1:00 PM HEALTH CARE ADMINISTRATOR Hospital Encounter [facility] Intensive Care [address] [place] [address] Evens Alfonso MD Carmicheal, MD Keith Singh Satyen V, MD Kidney stone Discharge Disposition: Discharged to home or Selfcare 03/04/2024 Travel 03/03/2024 Patient Outreach [facility] [address] [place] [phone] Pamella Sorto, DERMATOLOGY PHYSICIAN Care Management ([facility]) 03/03/2024 Nurse Triage [facility] Central Call Center [address] [place] [phone] Provider, None Nasal Congestion; Cough 03/03/2024 Results Follow-Up [facility] [address] [place] [address] Aubree Alvarez, SOFTWARE APPLICATIONS ARCHITECT, DESIGN CONSULTANT 03/01/2024 11:40 AM HEALTH CARE ADMINISTRATOR Lab [facility] Primary [facility] [place] [address] [place] [address] [address] Drug addiction (HCC); Vitamin D deficiency; High risk sexual behavior, unspecified type Discharge Disposition: Discharged to home or Selfcare 03/01/2024 10:30 AM HEALTH CARE ADMINISTRATOR Office Visit [facility] - [facility] - [facility] [place] [address] Aubree Alvarez APRN, SHARLA Vitamin D deficiency (Primary Dx); Insomnia, unspecified type; Anxiety; Depression, unspecified depression type; Drug addiction (HCC); High risk sexual behavior, unspecified type; Homeless; Acute pain of right knee Discharge Disposition: Discharged to home or Selfcare 03/01/2024 Travel 02/29/2024 [facility]phone [facility] [address] [place] [phone] Provider, None New Patient from Last 3 Months Family History Medical History Relation Name Comments Heart Attack Father Stroke Father Lung Cancer Maternal Grandmother Depression Mother High Cholesterol Mother Uterine Cancer Mother Relation Name Status Comments Father Maternal Grandmother Mother Alive Social History Tobacco Use Types Packs/Day Years Used Date Smoking Tobacco: Former Cigarettes 0 07/01/2015 - 06/30/2016 Smokeless Tobacco: Never Tobacco Cessation:Counseling Given: Not Answered Alcohol Use Standard Drinks/Week Comments Not Currently 0 (1 standard drink = 0.6 oz pur e alcohol) [facility] Utilities Answer Date Recorded In the past 12 months has e electric, gas, oil, or water company threatened [...] declined 03/05/2024 How often do you attend alevism or jain serv ices? Patient declined 03/05/2024 Do you belong to any clubs o r organizations such as alevism groups, unions, fraternal or athletic groups, or [...] Total Score - Questions 1-9 7 04/2024 [facility] - Occupational Stress Questionnaire Answer Date Recorded [...] any time in the past 12 m [facility], were you homeless or living in a long term (including now)? 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 Not on file Last Filed Vital Signs Vital Sign Reading Time Taken Comments Blood Pressure 126/92 03/22/2024 8:29 AM HEALTH CARE ADMINISTRATOR Pulse 118 03/05/2024 10:15 AM HEALTH CARE ADMINISTRATOR Temperature 36.6 C (97.9 F) 03/08/2024 7:00 AM HEALTH CARE ADMINISTRATOR Respiratory Rate 16 03/05/2024 12:40 PM HEALTH CARE ADMINISTRATOR Oxygen Saturation 93% 03/22/2024 8:29 AM HEALTH CARE ADMINISTRATOR Inhaled Oxygen Concentration - - Weight 57.2 kg (126 lb) 04/13/2024 3:00 PM HEALTH CARE ADMINISTRATOR Height 154.9 cm (5' 1 ) 04/13/2024 3:00 PM HEALTH CARE ADMINISTRATOR Body Mass Index 23.81 04/13/2024 3:00 PM HEALTH CARE ADMINISTRATOR Plan of Treatment Upcoming Encounters Date Type Department Care Team (Latest Contact Info) Description 04/21/2024 11:40 AM HEALTH CARE ADMINISTRATOR Hospital Encounter [facility] Per[facility] [address] [place] [address] Niranjan Valdez MD [address] [address] 04/21/2024 11:40 AM HEALTH CARE ADMINISTRATOR - 04/21/2024 1:10 PM HEALTH CARE ADMINISTRATOR Surgery [facility] Periop [address] [place] [address] Niranjan Valdez MD [address] [address] LEFT URETERAL EXTRACORPORAL SHOCKWAVE LITHOTRIPSY, LUCA/MIDWEST STONE CONF FOR 04/21 AT 1200 - JS Scheduled Procedures Name Priority Associated Diagnoses Date/Ti me ESWL LEFT KIDNEY STONE 04/21/2024 11:40 AM HEALTH CARE ADMINISTRATOR CYSTOSCOPY FLEXIBLE LEFT KIDNEY STONE 04/21/2024 11:40 AM HEALTH CARE ADMINISTRATOR CYSTO STENT REMOVAL (SINGLE/BILATERAL) LEFT KIDNEY STONE 04/21/2024 11:40 AM HEALTH CARE ADMINISTRATOR Health Maintenance Due Date Last Done Comments TdaP Immunization 1978 Hepatitis B Immunization (1 of 3 - 19+ 3-dose series) 1997 Discussion re Starting/Frequency of Mammograms 2018 Influenza Immunization (#1) 2023 SARS-COV-2 Immunization ( season) 2023 01/27/2023 Colonoscopy 08/15/2027 08/14/2017, 12/18/2014 Colorectal Cancer Screening 08/15/2027 Respiratory Syncytial Virus (RSV) Immunization (Adult) (1 - 1-dose 75+ series) 2053 08/14/2017, 12/18/2014 Hepatitis C Virus (HCV) Screening Completed 03/01/2024 Meningococcal Immunization (ACWY) Aged Out No longer eligible b ased on patient's age to complete this topic Pneumococcal Immunization Combined Aged Out No longer eligible b ased on patient's age to complete this topic Rotavirus Immunization Aged Out No lo nger eligible based on patient's age to complete this topic Medical Devices Implanted Type Area Credit Portfolio Advisor Device Identifier Shelf Expiration Date Model / Serial / Lot Stent Ureteral 5fr 2.1fr 24cm 2 Pigtail Curve 2 Durometer Taper Tip Loprfl Graduated Polaris Ultra - [id number] Implanted:Qty : 1 on 03/05/2024 by Niranjan Valdez MD at [facility] IMPLANT Left: Ureter [employer] 07/20/2026 [id number] / [id number] / [id number] Procedures Procedure Name Priority Date/Time Associated Diagnosis Comments XR ABDOMEN KUB FLAT PLATE Routine 03/22/2024 9:06 AM HEALTH CARE ADMINISTRATOR Kidney stone CULTURE, URINE Routine 03/22/2024 8:47 AM HEALTH CARE ADMINISTRATOR Kidney stone POCT UA AUTOMATED W/O MICRO Routine 03/22/2024 8:45 AM HEALTH CARE ADMINISTRATOR Kidney stone MANUAL DIFFERENTIAL Routine 03/08/2024 5:16 AM HEALTH CARE ADMINISTRATOR CBC WITH AUTO DIFFERENTIAL Routine 03/08/2024 5:16 AM HEALTH CARE ADMINISTRATOR COMPLETE BLOOD COUNT (CBC) WITH DIFF Routine 03/08/2024 5:16 AM HEALTH CARE ADMINISTRATOR BASIC METABOLIC PANEL W/ CALCIUM TOTAL Routine 03/08/2024 5:16 AM HEALTH CARE ADMINISTRATOR RHYTHM STRIP 03/08/2024 12:00 AM HEALTH CARE ADMINISTRATOR RHYTHM STRIP 03/08/2024 12:00 AM HEALTH CARE ADMINISTRATOR RHYTHM STRIP 03/08/2024 12:00 AM HEALTH CARE ADMINISTRATOR LACTIC ACID (LACTATE) Routine 03/07/2024 5:43 AM HEALTH CARE ADMINISTRATOR MANUAL DIFFERENTIAL Routine 03/07/2024 4:42 AM HEALTH CARE ADMINISTRATOR CBC WITH AUTO DIFFERENTIAL Routine 03/07/2024 4:42 AM HEALTH CARE ADMINISTRATOR COMPLETE BLOOD COUNT (CBC) WITH DIFF Routine 03/07/2024 4:42 AM HEALTH CARE ADMINISTRATOR BASIC METABOLIC PANEL W/ CALCIUM TOTAL Routine 03/07/2024 4:42 AM HEALTH CARE ADMINISTRATOR RHYTHM STRIP 03/07/2024 12:00 AM HEALTH CARE ADMINISTRATOR RHYTHM STRIP 03/07/2024 12:00 AM HEALTH CARE ADMINISTRATOR RHYTHM STRIP 03/07/2024 12:00 AM HEALTH CARE ADMINISTRATOR RHYTHM STRIP 03/07/2024 12:00 AM HEALTH CARE ADMINISTRATOR RHYTHM STRIP 03/07/2024 12:00 AM HEALTH CARE ADMINISTRATOR LACTIC ACID (LACTATE) Routine 03/06/2024 9:37 AM HEALTH CARE ADMINISTRATOR LACTIC ACID (LACTATE) Routine 03/06/2024 6:07 AM HEALTH CARE ADMINISTRATOR CORTISOL Routine 03/06/2024 6:07 AM HEALTH CARE ADMINISTRATOR THYROID STIMULATING HORMONE (TSH) Routine 03/06/2024 6:07 AM HEALTH CARE ADMINISTRATOR URINALYSIS REFLEX IF INDICATED BY ABNORMAL RESULTS Routine 03/06/2024 6:07 AM HEALTH CARE ADMINISTRATOR CULTURE, URINE Routine 03/06/2024 6:07 AM HEALTH CARE ADMINISTRATOR PHOSPHORUS (PO4) Routine 03/06/2024 5:48 AM HEALTH CARE ADMINISTRATOR BASIC METABOLIC PANEL W/ CALCIUM TOTAL Routine 03/06/2024 5:48 AM HEALTH CARE ADMINISTRATOR MANUAL DIFFERENTIAL Routine 03/06/2024 5:47 AM HEALTH CARE ADMINISTRATOR CBC WITH AUTO DIFFERENTIAL Routine 03/06/2024 5:47 AM HEALTH CARE ADMINISTRATOR COMPLETE BLOOD COUNT (CBC) WITH DIFF Routine 03/06/2024 5:47 AM HEALTH CARE ADMINISTRATOR RHYTHM STRIP 03/06/2024 12:00 AM HEALTH CARE ADMINISTRATOR RHYTHM STRIP 03/06/2024 12:00 AM HEALTH CARE ADMINISTRATOR RHYTHM STRIP 03/06/2024 12:00 AM HEALTH CARE ADMINISTRATOR EKG SCAN 03/06/2024 12:00 AM HEALTH CARE ADMINISTRATOR RHYTHM STRIP 03/06/2024 12:00 AM HEALTH CARE ADMINISTRATOR XR CHEST SINGLE VIEW PORTABLE Stat with Interpretation 03/05/2024 4:20 PM HEALTH CARE ADMINISTRATOR XR RETROGRADE PYELOGRAM Routine 03/05/2024 9:30 AM HEALTH CARE ADMINISTRATOR CULTURE, URINE STAT 03/05/2024 9:28 AM HEALTH CARE ADMINISTRATOR LMA Routine 03/05/2024 8:52 AM HEALTH CARE ADMINISTRATOR CYSTOSCOPY RETROGRADE PYELOGRAMS WITH C-ARM 03/05/2024 8:20 AM HEALTH CARE ADMINISTRATOR LEFT KIDNEY STONE CYSTOSCOPY STENT INSERTION (SINGLE / BILATERAL) 03/05/2024 8:20 AM HEALTH CARE ADMINISTRATOR LEFT KIDNEY STONE HUMAN CHORIONIC GONADOTROPIN SCRN SERUM STAT 03/05/2024 7:47 AM HEALTH CARE ADMINISTRATOR TROPONIN I, HIGH SENSITIVITY (HSTRP) Routine 03/05/2024 7:47 AM HEALTH CARE ADMINISTRATOR EKG 12 LEAD STAT 03/05/2024 5:05 AM HEALTH CARE ADMINISTRATOR MANUAL DIFFERENTIAL STAT 03/05/2024 2:18 AM HEALTH CARE ADMINISTRATOR CBC WITH AUTO DIFFERENTIAL STAT 03/05/2024 2:18 AM HEALTH CARE ADMINISTRATOR PHOSPHORUS (PO4) Routine 03/05/2024 2:18 AM HEALTH CARE ADMINISTRATOR MAGNESIUM (MG) Routine 03/05/2024 2:18 AM HEALTH CARE ADMINISTRATOR TROPONIN I, HIGH SENSITIVITY (HSTRP) Routine 03/05/2024 2:18 AM HEALTH CARE ADMINISTRATOR COMPLETE BLOOD COUNT (CBC) WITH DIFF STAT 03/05/2024 2:18 AM HEALTH CARE ADMINISTRATOR BASIC METABOLIC PANEL W/ CALCIUM TOTAL STAT 03/05/2024 2:18 AM HEALTH CARE ADMINISTRATOR RHYTHM STRIP 03/05/2024 12:00 AM HEALTH CARE ADMINISTRATOR RHYTHM STRIP 03/05/2024 12:00 AM HEALTH CARE ADMINISTRATOR RHYTHM STRIP 03/05/2024 12:00 AM HEALTH CARE ADMINISTRATOR RHYTHM STRIP 03/05/2024 12:00 AM HEALTH CARE ADMINISTRATOR EKG SCAN 03/05/2024 12:00 AM HEALTH CARE ADMINISTRATOR CT ABDOMEN PELVIS W/O CONTRAST Stat with Interpretation 03/04/2024 11:10 PM HEALTH CARE ADMINISTRATOR CHLAMYDIA & GC DNA PROBE Routine 03/01/2024 12:01 PM HEALTH CARE ADMINISTRATOR High risk sexual behavior, unspecified type CHLAMYDIA & GC DNA PROBE > 12 Routine 03/01/2024 12:01 PM HEALTH CARE ADMINISTRATOR High risk sexual behavior, unspecified type HSV TYPE II IGG ANTIBODY Routine 03/01/2024 11:53 AM HEALTH CARE ADMINISTRATOR High risk sexual behavior, unspecified type HSV TYPE I IGG ANTIBODY Routine 03/01/2024 11:53 AM HEALTH CARE ADMINISTRATOR High risk sexual behavior, unspecified type THYROID SCREEN WITH REFLEX Routine 03/01/2024 11:53 AM HEALTH CARE ADMINISTRATOR Drug addiction (HCC) CBC WITH AUTO DIFFERENTIAL Routine 03/01/2024 11:53 AM HEALTH CARE ADMINISTRATOR Drug addiction (HCC) HEPATITIS B SURFACE ANTIBODY (HBSAB) Routine 03/01/2024 11:53 AM HEALTH CARE ADMINISTRATOR High risk sexual behavior, unspecified type HEPATITIS C ANTIBODY Routine 03/01/2024 11:53 AM HEALTH CARE ADMINISTRATOR High risk sexual behavior, unspecified type HERPES SIMPLEX 1 & 2 ANTIBODIES IGG Routine 03/01/2024 11:53 AM HEALTH CARE ADMINISTRATOR High risk sexual behavior, unspecified type SYPHILIS IGG/IGM W/REFLEX Routine 03/01/2024 11:53 AM HEALTH CARE ADMINISTRATOR High risk sexual behavior, unspecified type HIV 1 & 2 ANTIBODY & ANTIGEN SCREEN Routine 03/01/2024 11:53 AM HEALTH CARE ADMINISTRATOR High risk sexual behavior, unspecified type VITAMIN B12 Routine 03/01/2024 11:53 AM HEALTH CARE ADMINISTRATOR Drug addiction (HCC) VITAMIN D, 25 HYDROXY TOTAL Routine 03/01/2024 11:53 AM HEALTH CARE ADMINISTRATOR Vitamin D deficiency THYROID SCREEN WITH REFLEX Routine 03/01/2024 11:53 AM HEALTH CARE ADMINISTRATOR Drug addiction (HCC) LIPID PANEL Routine 03/01/2024 11:53 AM HEALTH CARE ADMINISTRATOR Drug addiction (HCC) HEMOGLOBIN A1C W/ ESTIMATED GLUCOSE Routine 03/01/2024 11:53 AM HEALTH CARE ADMINISTRATOR Drug addiction (HCC) CMP (COMPREHENSIVE METABOLIC PANEL) Routine 03/01/2024 11:53 AM HEALTH CARE ADMINISTRATOR Drug addiction (HCC) COMPLETE BLOOD COUNT (CBC) WITH DIFF Routine 03/01/2024 11:53 AM HEALTH CARE ADMINISTRATOR Drug addiction (HCC) HM COLONOSCOPY Routine 08/14/2017 from Last 3 Months or Most Recently Relevant to Health Maintenance Results * XR ABDOMEN KUB FLAT PLATE (03/22/2024 9:06 AM HEALTH CARE ADMINISTRATOR) Anatomical Region Laterality Modality Abdomen N/A Digital Radiogra phy 03/22/2024 4:13 PM HEALTH CARE ADMINISTRATOR Impressions 03/22/2024 4:16 PM HEALTH CARE ADMINISTRATOR IMPRESSION: 1. A left ureteral stent is in place. An 8 mm calculus along the proximal aspect of the stent, possibly a ureteral stone. 2. Rounded 8 mm calculus in the region of the right renal mid to lower pole, without correlate on the prior CT. Narrative 03/22/2024 4:16 PM HEALTH CARE ADMINISTRATOR EXAM DESCRIPTION: XR ABDOMEN KUB FLAT PLATE REASON FOR STUDY: dysuria, hematuria, diarrhea, lower abdominal pain x 2 weeks. Hx of left stent placement x 2 weeks ago due to kidney stones in left kidney. TECHNIQUE: Single radiographic view of the abdomen. COMPARISON: Pyelogram 03/05/2024 FINDINGS: BOWEL: Nonobstructive gas pattern. SOFT TISSUES: A left ureteral stent appears appropriately position. 8 mm calculus along the proximal ureteral stent. There is a rounded 8 mm calculus in the region of the right renal mid to lower pole, without correlate on prior CT. LINES/TUBES: None. BONES: No acute osseous abnormality. THIS IS AN ELECTRONICALLY VERIFIED FINAL REPORT 03/22/2024 4:13 PM - Electronically signed by Ancelmo Gill M.D. KR: [id number] Report ID: [id number] Reading Location: [id number] Procedure Note Ancelmo Gill MD - 03/22/2024 EXAM DESCRIPTION: XR ABDOMEN KUB FLAT PLATE REASON FOR STUDY: dysuria, hematuria, diarrhea, lower abdominal pain x 2 weeks. Hx of left stent placement x 2 weeks ago due to kidney stones in left kidney. TECHNIQUE: Single radiographic view of the abdomen. COMPARISON: Pyelogram 03/05/2024 FINDINGS: BOWEL: Nonobstructive gas pattern. SOFT TISSUES: A left ureteral stent appears appropriately position. 8 mm calculus along the proximal ureteral stent. There is a rounded 8 mm calculus in the region of the right renal mid to lower pole, without correlate on prior CT. LINES/TUBES: None. BONES: No acute osseous abnormality. THIS IS AN ELECTRONICALLY VERIFIED FINAL REPORT 03/22/2024 4:13 PM - Electronically signed by Ancelmo Gill M.D. KR: KR Report ID: [id number] Reading Location: [id number] IMPRESSION: 1. A left ureteral stent is in place. An 8 mm calculus along the proximal aspect of the stent, possibly a ureteral stone. 2. Rounded 8 mm calculus in the region of the right renal mid to lower pole, without correlate on the prior CT. Niranjan Valdez MD IM DIAGNOSTIC ORDERABLES Final Result * CULTURE, URINE (03/22/2024 8:47 AM HEALTH CARE ADMINISTRATOR) Only the most recent of3 resultswithin the time period is included. CULTURE RESULTS STAPHYLOCOCCUS EPIDERMIDIS 03/25/2024 6:54 PM HEALTH CARE ADMINISTRATOR [facility] CULTURE RESULTS STAPHYLOCOCCUS HAEMOLYTICUS 03/25/2024 6:54 PM HEALTH CARE ADMINISTRATOR [facility] Culture (Pre-Op Catheter) Non-Phlebotomy Collection / Unknown 03/22/2024 8:47 AM HEALTH CARE ADMINISTRATOR 03/22/2024 8:47 AM HEALTH CARE ADMINISTRATOR Narrative Organism Antibiotic Method Susceptibility Staphylococcus epidermidis Gentamicin [facility] II <=0.5 mcg/ml: Susceptible Staphylococcus epidermidis Linezolid [facility] II 1 mcg/ml: Susceptible Staphylococcus epidermidis Nitrofurantoin [facility] II <=16 mcg/ml: Susceptible Staphylococcus epidermidis Oxacillin [facility] II >=4 mcg/ml: Resistant Staphylococcus epidermidis Tetracycline [facility] II <=1 mcg/ml: Susceptible Staphylococcus epidermidis Trimeth/Sulfamethoxazole [facility] II 80 mcg/ml: Resistant Staphylococcus epidermidis Vancomycin [facility] II 2 mcg/ml: Susceptible Staphylococcus haemolyticus Gentamicin [facility] II <=0.5 mcg/ml: Susceptible Staphylococcus haemolyticus Linezolid [facility] II 2 mcg/ml: Susceptible Staphylococcus haemolyticus Nitrofurantoin [facility] II <=16 mcg/ml: Susceptible Staphylococcus haemolyticus Oxacillin [facility] VITEK II >=4 mcg/ml: Resistant Staphylococcus haemolyticus Tetracycline [facility] II >=16 mcg/ml: Resistant Staphylococcus haemolyticus Trimeth/Sulfamethoxazole [facility] VITEK II <=10 mcg/ml: Susceptible Staphylococcus haemolyticus Vancomycin SF VITEK II 1 mcg/ml: Susceptible us Niranjan Valdez MD MICROBIOLOGY - GENERAL ORDERABLE S Final Result [facility] [address] [place] [address], [place] * (ABNORMAL) POCT UA AUTOMATED W/O MICRO (03/22/2024 8:45 AM HEALTH CARE ADMINISTRATOR) [facility] POC UA SPECIFIC GRAVITY 1.015 URINE PH 6.0 5.0 - 9.0 POC URINE LEUKOCYTES 500 /uL(A) Negative Afsaneh/uL POC URINE NITRITE Negative Negative POC URINE PROTEIN Trace(A) Negative mg/dL POC URINE GLUCOSE Norm Negative, Norm mg/dL POC URINE KETONE Negative Negative mg/dL POC URINE UROBILINOGEN Norm Norm, 0.2 E.U./dL (mg/dL), 1 E.U./dL (mg/dL) POC URINE BILIRUBIN Negative Negative mg/dL POC URINE BLOOD INSTRUMENT 250 Titus/uL(A) Negative Titus/uL POC URINE COLOR Yellow POC URINE CLARITY Slightly Cloudy Urine 03/22/2024 8:45 AM HEALTH CARE ADMINISTRATOR Niranjan Valdez MD POINT OF CARE TESTING (MANUAL) F inal Result * (ABNORMAL) Manual Differential (03/08/2024 5:16 AM HEALTH CARE ADMINISTRATOR) Only the most recent of4 resultswithin the time period is included. BANDS % 3.0 % 03/08/2024 6:39 AM HEALTH CARE ADMINISTRATOR [facility] NEUTROPHIL[facility] % 72.0 47.0 - 73.0 % 03/08/2024 6:39 AM HEALTH CARE ADMINISTRATOR [facility] LYMPHOCYTES % 12.0(L) 18.0 - 42.0 % 03/08/2024 6:39 AM HEALTH CARE ADMINISTRATOR [facility] MONOCYTES % 11.0 4.0 - 12.0 % 03/08/2024 6:39 AM HEALTH CARE ADMINISTRATOR [facility] EOSINOPHILS % 1.0 0.0 - 5.0 % 03/08/2024 6:39 AM [facility] BASOPHILS % 1.0 0.0 - 1.0 % 03/08/2024 6:39 AM HEALTH CARE ADMINISTRATOR [facility] NEUTROPHILS ABSOLUTE 9.47(H) 1.60 - 7.70 10(3)/[facility] 03/08/2024 6:39 AM HEALTH CARE ADMINISTRATOR [facility] LYMPHOCYTES ABSOLUTE 1.51 1.30 - 3.20 10(3)/[facility] 03/08/2024 6:39 AM [facility] MONOCYTES ABSOLUTE 1.39(H) 0.20 - 1.00 10(3)/[facility] 03/08/2024 6:39 AM [facility] EOSINOPHILS ABSOLUTE 0.13 0.00 - 0.40 10(3)/[facility] 03/08/2024 6:39 AM HEALTH CARE ADMINISTRATOR [facility] BASOPHILS ABSOLUTE 0.13(H) 0.00 - 0.10 10(3)/[facility] 03/08/2024 6:39 AM [facility] WBC MORPH STATUS Normal 03/08/19 6:39 AM [facility] RBC MORPH STATUS Normal 03/08/19 6:39 AM [facility] PLATELET STATUS Normal 6:39 AM [facility] Blood Venipuncture / Unknown 03/08/2024 5:16 AM HEALTH CARE ADMINISTRATOR 03/08/2024 5:25 AM [facility] us Mariusz Tsang MD HEMATOLOGY ORDERABLES Final Res ult [facility] [address] [place] [address] * (ABNORMAL) CBC with Auto Differential (03/08/2024 5:16 AM [facility]) Only the most recent of5 resultswithin the time period is included. WBC 12.62(H) 4.00 - 12.00 10(3)/mcL 03/08/2024 6:39 AM [facility] RBC 3.59(L) 3.80 - 5.30 10(6)/mcL 03/08/2024 6:39 AM [facility] HEMOGLOBIN (HGB) 10.8(L) 12.0 - 15.8 g/dL 03/08/2024 6:39 AM [facility] HEMATOCRIT (HCT) 31.7(L) 36.0 - 47.0 % 03/08/2024 6:39 AM [facility] MCV 88.3 82.0 - 96.0 fL 03/08/2024 6:39 AM [facility] MCH 30.1 26.0 - 34.0 pg 03/08/2024 6:39 AM [facility] MCHC 34.1 31.0 - 36.0 g/dL 03/08/2024 6:39 AM [facility] PLATELET COUNT 84(L) 140 - 440 10(3)/[facility] 03/08/2024 6:39 AM [facility] RDW 13.2 11.8 - 15.5 % 03/08/2024 6:39 AM [facility] MPV 10.8 9.7 - 12.4 fL 03/08/2024 6:39 AM [facility] NRBC PER 100 WBC 0 03/08/2024 6:39 AM [facility] RESULTS ARE CONSISTENT WITH PERIPHERAL SMEAR REVIEW Yes 03/08/2024 6:39 AM [facility] Blood Venipuncture / Unknown 03/08/2024 5:16 AM HEALTH CARE ADMINISTRATOR 03/08/2024 5:25 AM HEALTH CARE ADMINISTRATOR us Mariusz Tsang MD HEMATOLOGY ORDERABLES Final Res ult [facility] [address] [place] [address] * (ABNORMAL) BMP with Ca, Total (03/08/2024 5:16 AM HEALTH CARE ADMINISTRATOR) Only the most recent of4 resultswithin the time period is included. SODIUM 142 136 - 145 mmol/L 03/08/2024 5:56 AM [facility] POTASSIUM 3.8 3.5 - 5.1 mmol/L 03/08/2024 5:56 AM [facility] CHLORIDE 114(H) 98 - 107 mmol/L 03/08/2024 5:56 AM [facility] CO2, VENOUS 22 22 - 30 mmol/L 03/08/2024 5:56 AM [facility] ANION GAP 9.8 <18.0 mmol/L 03/08/2024 5:56 AM [facility] GLUCOSE 90 70 - 99 mg/dL 03/08/2024 5:56 AM [facility] BUN 11 5 - 18 mg/dL 03/08/2024 5:56 AM [facility] CREATININE, BLOOD 0.83 0.60 - 1.00 mg/dL 03/08/2024 5:56 AM [facility] BUN/CREATININE RATIO 13 12 - 20 ratio 03/08/2024 5:56 AM [facility] CALCIUM 8.4(L) 8.7 - 10.5 mg/dL 03/08/2024 5:56 AM [facility] GFR, ESTIMATED >60 >=60 03/08/2024 5:56 AM [facility] Comment: Creatinine Clearance is the preferred criteria for selecting drug dose adjustments in renally impaired patients. The GFR is provided as additional pertinent clinical information. GFR is reported in mL/min/1.73 sq m. Calculation based on the Chronic Kidney Disease Epidemiology Collaboration (CKD- EPI) equation refit without adjustment for race. GFR, EST. >60 >=60 025 5:56 AM [facility] GFR, EST. NONAFRICAN >60 >=60 03/08/2024 5:56 AM HEALTH CARE ADMINISTRATOR [facility] Blood Venipuncture / Unknown 03/08/2024 5:16 AM HEALTH CARE ADMINISTRATOR 03/08/2024 5:25 AM HEALTH CARE ADMINISTRATOR Mariusz Tsang MD CHEMISTRY ORDERABLES Final Resu lt Performing Organization Address [facility] Co de Phone Number [facility] [address] [place] [address] * RHYTHM STRIP (03/08/2024 12:00 AM HEALTH CARE ADMINISTRATOR) Only the most recent of16 resultswithin the time period is included. 03/08/2024 us Provider Scan IMG ECG ORDERABLES Final Result Performing Organization Address [facility] de Phone Number RESULTING AGENCY * Lactic Acid (Lactate) (03/07/2024 5:43 AM HEALTH CARE ADMINISTRATOR) Only the most recent of3 resultswithin the time period is included. LACTIC ACID 1.9 0.7 - 2.0 mmol/L 03/07/2024 6:17 AM HEALTH CARE ADMINISTRATOR [facility] Blood Venipuncture / Unknown 03/07/2024 5:43 AM HEALTH CARE ADMINISTRATOR 03/07/2024 5:46 AM HEALTH CARE ADMINISTRATOR Mariusz Tsang MD CHEMISTRY ORDERABLES Final Resu lt Performing Organization Address [facility] de Phone Number [facility] [address] [place] [address] * (ABNORMAL) URINALYSIS REFLEX IF INDICATED BY ABNORMAL RESULTS (03/06/2024 6:07 AM HEALTH CARE ADMINISTRATOR) SPECIFIC GRAVITY 1.015 1.003 - 1.030 03/06/2024 7:15 AM HEALTH CARE ADMINISTRATOR [facility] URINE PH 5.0 5.0 - 9.0 03/06/2024 7:15 AM HEALTH CARE ADMINISTRATOR [facility] WBC ESTERASE 500 /uL(A) Negative 03/06/2024 7:15 AM HEALTH CARE ADMINISTRATOR [facility] NITRITE Negative Negative 03/06/2024 7:15 AM HEALTH CARE ADMINISTRATOR [facility] PROTEIN, RANDOM URINE 100 mg/dL(A) Negative 03/06/2024 7:15 AM [facility] URINE GLUCOSE, QUAL Negative Negative 03/06/2024 7:15 AM HEALTH CARE ADMINISTRATOR [facility] URINE KETONES Negative Negative 03/06/2024 7:15 AM HEALTH CARE ADMINISTRATOR [facility] UROBILINOGEN Normal Normal mg/dL 03/06/2024 7:15 AM HEALTH CARE ADMINISTRATOR [facility] URINE BLOOD 250 /uL(A) Negative titus/ul 03/06/2024 7:15 AM HEALTH CARE ADMINISTRATOR [facility] URINALYSIS COLOR Yellow 03/06/2024 7:15 AM [facility] URINALYSIS CLARITY Slightly Cloudy 03/06/2024 7:15 AM HEALTH CARE ADMINISTRATOR [facility] WBC (Urine) 21-50(A) Negative, 0-5 /hpf 03/06/2024 7:15 AM HEALTH CARE ADMINISTRATOR [facility] URINE RBC'S 51-150(A) Negative, 0-2 /hpf 03/06/2024 7:15 AM [facility] EPITHELIAL CELLS Occasional /lpf 03/06/2024 7:15 AM [facility] BACTERIA, URINE Few(A) Negative /hpf 03/06/2024 7:15 AM [facility] Urine URINE SPECIMEN COLLECTION, CLEAN CATCH / Unknown Non-Phlebotomy Collection / Unknown 03/06/2024 6:07 AM HEALTH CARE ADMINISTRATOR 03/06/2024 6:07 AM HEALTH CARE ADMINISTRATOR us Lola Hill APRN, DESIGN CONSULTANT URINE ORDERABLES Final Re sult [facility] [address] [place] [address] * Thyroid Stimulating Hormone (TSH) (03/06/2024 6:07 AM HEALTH CARE ADMINISTRATOR) TSH 0.704 0.300 - 5.000 mIU/L 03/06/2024 6:46 AM HEALTH CARE ADMINISTRATOR [facility] Blood Venipuncture / Unknown 03/06/2024 6:07 AM HEALTH CARE ADMINISTRATOR 03/06/2024 6:07 AM HEALTH CARE ADMINISTRATOR Mariusz Tsang MD CHEMISTRY ORDERABLES Final Resu lt Performing Organization Address [facility] Co de Phone Number [facility] [address] [place] [address] * Cortisol (03/06/2024 6:07 AM HEALTH CARE ADMINISTRATOR) CORTISOL 13.6 mcg/dL 03/06/2024 6:4 6 AM HEALTH CARE ADMINISTRATOR [facility] Blood Venipuncture / Unknown 03/06/2024 6:07 AM HEALTH CARE ADMINISTRATOR 03/06/2024 6:07 AM HEALTH CARE ADMINISTRATOR Narrative [facility] - 03/06/2024 6:46 AM HEALTH CARE ADMINISTRATOR AM: 4 TO 19 mcg/dL PM: Approx. Half of AM Value Mariusz Tsang MD CHEMISTRY ORDERABLES Final Resu lt Performing Organization Address [facility] Co de Phone Number [facility] [address] [place] [address] * PHOSPHORUS (PO4) (03/06/2024 5:48 AM HEALTH CARE ADMINISTRATOR) Only the most recent of2 resultswithin the time period is included. PHOSPHORUS 4.4 2.5 - 4.5 mg/dL 03/06/2024 6:37 AM HEALTH CARE ADMINISTRATOR [facility] Blood Venipuncture / Unknown 03/06/2024 5:48 AM HEALTH CARE ADMINISTRATOR 03/06/2024 5:48 AM HEALTH CARE ADMINISTRATOR us Lola Hill SOFTWARE APPLICATIONS ARCHITECT, DESIGN CONSULTANT CHEMISTRY ORDERABLES Tori l Result [facility] [address] [place] [address] * EKG SCAN (03/06/2024 12:00 AM HEALTH CARE ADMINISTRATOR) Only the most recent of2 resultswithin the time period is included. 03/06/2024 us Provider Scan IMG ECG ORDERABLES Final Result RESULTING AGENCY * XR CHEST SINGLE VIEW PORTABLE (03/05/2024 4:20 PM HEALTH CARE ADMINISTRATOR) Anatomical Region Laterality Modality Chest N/A Computed Radiogr aphy 03/05/2024 4:41 PM HEALTH CARE ADMINISTRATOR Impressions 03/05/2024 4:43 PM HEALTH CARE ADMINISTRATOR IMPRESSION: No acute cardiopulmonary abnormality. Narrative 03/05/2024 4:43 PM HEALTH CARE ADMINISTRATOR EXAM DESCRIPTION: XR CHEST SINGLE VIEW PORTABLE REASON FOR STUDY: right subclavian central line placement verification TECHNIQUE: Frontal radiographic view(s) of the chest. COMPARISON: Chest radiographs, most recent dated 10/17/2017. FINDINGS: LUNGS: Mild left basilar atelectasis and/or scarring. No focal airspace consolidation. No pleural effusion or pneumothorax. HEART/MEDIASTINUM: Cardiac silhouette normal in size. Mediastinal and hilar contours appear normal. LINES/TUBES: A right subclavian central venous catheter is noted with tip terminating over the right atrium. BONES: No acute osseous abnormality. Cholecystectomy clips are seen within the right upper abdominal quadrant. THIS IS AN ELECTRONICALLY VERIFIED FINAL REPORT 03/05/2024 4:41 PM - Electronically signed by Saul Fulton M.D. MF: [id number] Report ID: [id number] Reading Location: [id number] Procedure Note Saul Fulton, - 03/05/2024 EXAM DESCRIPTION: XR CHEST SINGLE VIEW PORTABLE REASON FOR STUDY: right subclavian central line placement verification TECHNIQUE: Frontal radiographic view(s) of the chest. COMPARISON: Chest radiographs, most recent dated 10/17/2017. FINDINGS: LUNGS: Mild left basilar atelectasis and/or scarring. No focal airspace consolidation. No pleural effusion or pneumothorax. HEART/MEDIASTINUM: Cardiac silhouette normal in size. Mediastinal and hilar contours appear normal. LINES/TUBES: A right subclavian central venous catheter is noted with tip terminating over the right atrium. BONES: No acute osseous abnormality. Cholecystectomy clips are seen within the right upper abdominal quadrant. THIS IS AN ELECTRONICALLY VERIFIED FINAL REPORT 03/05/2024 4:41 PM - Electronically signed by Saul Fulton M.D. MF: [id number] Report ID: [id number] Reading Location: [place] [address] IMPRESSION: No acute cardiopulmonary abnormality. Mariusz Tsang MD IMG DIAGNOSTIC ORDERABLES Final Result * XR RETROGRADE PYELOGRAM (03/05/2024 9:30 AM HEALTH CARE ADMINISTRATOR) Niranjan Valdez MD IMG FLUOROSCOPY ORDERABLES Final Result * LMA (03/05/2024 8:52 AM HEALTH CARE ADMINISTRATOR) Narrative Ancelmo Jurado APRN, CRNA - 03/05/2024 8:52 AM HEALTH CARE ADMINISTRATOR Ancelmo Jurado APRN, CRNA 03/05/2024 8:54 AM LMA Staffing Performed: resident/CERTIFIED ENDOSCOPY TECHNICIAN Resident/CERTIFIED ENDOSCOPY TECHNICIAN: Ancelmo Jurado APRN, CRNA Performed by: Ancelmo Jurado APRN, CRNA Authorized by: Ancelmo Jurado APRN, CRNA Airway Details Overall Difficulty: Easy Preoxygenated: Yes Ease of Mask Ventilation: Not attempted LMA Type: Disposable LMA Size: 4 Adequate seal established: Yes LMA placement confirmed by: bilateral breath sounds, CO2 detection Atraumatic LMA Placement Ancelmo Jurado APRN, CRNA ANESTHESIA ORDERAB LES Final Result * TROPONIN I, HIGH SENSITIVITY (HSTRP) (03/05/2024 7:47 AM HEALTH CARE ADMINISTRATOR) Only the most recent of2 resultswithin the time period is included. TROPONIN I, HIGH SENSITIVITY- [place] <3 <=14 ng/L 03/05/2024 8:22 AM HEALTH CARE ADMINISTRATOR [facility] Comment: High-sensitivity troponin I results are reported in ng/L making the result appear to be 1,000 times higher than the contemporary troponin I value which is reported in ng/ml. Results from [place]. Blood Venipuncture / Unknown 03/05/2024 7:47 AM HEALTH CARE ADMINISTRATOR 03/05/2024 7:47 AM HEALTH CARE ADMINISTRATOR us Lola Hill APRN, CNP CHEMISTRY ORDERABLES Tori l Result Performing Organization Address City/[facility]/ZIP Co de Phone Number [facility] [address] [place] [address] * Human Chorionic Gonadotropin Scrn Serum (03/05/2024 7:47 AM HEALTH CARE ADMINISTRATOR) Pathologist [facility] PREG-HCG Negative 03/05/2024 8:01 AM HEALTH CARE ADMINISTRATOR [facility] Blood Venipuncture / Unknown 03/05/2024 7:47 AM HEALTH CARE ADMINISTRATOR 03/05/2024 7:47 AM HEALTH CARE ADMINISTRATOR us Anayeli Artis MD CHEMISTRY ORDERABLES Final Result Performing Organization Address City/[facility]/ZIP Co de Phone Number [facility] [address] [place] [address] * EKG 12 LEAD (03/05/2024 5:05 AM HEALTH CARE ADMINISTRATOR) Ventricular Rate 111 BPM EXTERNAL EKG Atrial Rate 111 BPM EXTERNAL EKG P-R Interval 136 ms EXTERNAL EKG QRS Duration 76 ms EXTERNAL EKG Q-T Duration 318 ms EXTERNAL EKG QTC CALCULATION 432 ms EXTERNAL EKG P Monitor 71 degrees EXTERNAL EKG R Monitor 73 degrees EXTERNAL EKG T Monitor 88 degrees EXTERNAL EKG 03/05/2024 5:05 AM HEALTH CARE ADMINISTRATOR Impressions EXTERNAL EKG - 03/07/2024 11:35 AM HEALTH CARE ADMINISTRATOR Sinus tachycardia Otherwise normal ECG No significant change was found ~ Confirmed by Kranthi Thomas ([id number]) on 03/07/2024 11:35:19 AM Narrative Procedure Note Kranthi Thomas MD - 03/07/2024 IMPRESSION: Sinus tachycardia Otherwise normal ECG No significant change was found ~ Confirmed by Kranthi Thomas ([id number]) on 03/07/2024 11:35:19 AM us Lola Hill APRN, CNP IMG ECG ORDERABLES Final Result EXTERNAL EKG * MAGNESIUM (MG) (03/05/2024 2:18 AM HEALTH CARE ADMINISTRATOR) MAGNESIUM 1.8 1.6 - 2.6 mg/dL 03/05/2024 5:08 AM HEALTH CARE ADMINISTRATOR [facility] Blood Venipuncture / Unknown 03/05/2024 2:18 AM HEALTH CARE ADMINISTRATOR 03/05/2024 3:22 AM HEALTH CARE ADMINISTRATOR us Lola Hill APRN, CNP CHEMISTRY ORDERABLES Tori l Result [facility] [place] [address] * CT ABDOMEN PELVIS W/O CONTRAST (03/04/2024 11:10 PM HEALTH CARE ADMINISTRATOR) Anatomical Region Laterality Modality Abdomen N/A Computed Tomogra phy 03/04/2024 11:2 9 PM HEALTH CARE ADMINISTRATOR Impressions 03/04/2024 11:31 PM HEALTH CARE ADMINISTRATOR IMPRESSION: 1 cm x 8 mm stone at the left ureteropelvic junction with moderate to severe left hydronephrosis. 4 cm left ovarian cyst is suspected. Follow-up, nonemergent ultrasound to ensure resolution is recommended. Narrative 03/04/2024 11:31 PM HEALTH CARE ADMINISTRATOR EXAM DESCRIPTION: CT ABDOMEN PELVIS W/O CONTRAST REASON FOR STUDY: Flank pain, kidney stone suspected TECHNIQUE: CT scan of the abdomen and pelvis performed without intravenous and without oral contrast using helical scanning technique. Reconstructed coronal and sagittal MPR images reviewed. All images stored on PACS. Automated exposure control was used as a dose optimization technique for this examination. COMPARISON: 04/17/2015 FINDINGS: The sensitivity for detection of visceral lesions is diminished without the use of intravenous contrast. LOWER CHEST: No significant pulmonary abnormalities. No effusion. LIVER: Normal size. No identified cystic or solid masses. GALLBLADDER: Unremarkable BILE DUCTS: No intrahepatic or extrahepatic ductal dilatation. SPLEEN: Normal size. No focal lesions. PANCREAS: No identified cystic or solid masses. No significant calcifications. No adjacent inflammation or peripancreatic fluid collections. Pancreatic duct not dilated. ADRENALS: Normal. KIDNEYS/URINARY TRACT: Extensive stranding fluid is seen around the left kidney. Moderate to severe left hydronephrosis noted. There is a 1 cm x 8 mm stone at the left ureteropelvic junction. Calcification seen on image number 97 at the anteromedial aspect of the left psoas muscle appears to have been present in the same position on the prior study. Urinary bladder is unremarkable. GI: Somewhat prominent amount of stool is seen in the proximal colon without evidence obstruction. The appendix has apparently been removed. PERITONEUM: No ascites or free air. RETROPERITONEUM: No mass or adenopathy. REPRODUCTIVE: 4 cm left ovarian cyst is suspected. Some calcification is also noted in the left ovary. VASCULATURE: No abdominal aortic aneurysm. MUSCULOSKELETAL: No significant abnormality. OTHER: No other abnormality. THIS IS AN ELECTRONICALLY VERIFIED FINAL REPORT 03/04/2024 11:29 PM - Electronically signed by Ancelmo Hong M.D. KH: MARTINA Report ID: [id number] Reading Location: [id number] Procedure Note Ancelmo Hong MD - 03/04/2024 EXAM DESCRIPTION: CT ABDOMEN PELVIS W/O CONTRAST REASON FOR STUDY: Flank pain, kidney stone suspected TECHNIQUE: CT scan of the abdomen and pelvis performed without intravenous and without oral contrast using helical scanning technique. Reconstructed coronal and sagittal MPR images reviewed. All images stored on PACS. Automated exposure control was used as a dose optimization technique for this examination. COMPARISON: 04/17/2015 FINDINGS: The sensitivity for detection of visceral lesions is diminished without the use of intravenous contrast. LOWER CHEST: No significant pulmonary abnormalities. No effusion. LIVER: Normal size. No identified cystic or solid masses. GALLBLADDER: Unremarkable BILE DUCTS: No intrahepatic or extrahepatic ductal dilatation. SPLEEN: Normal size. No focal lesions. PANCREAS: No identified cystic or solid masses. No significant calcifications. No adjacent inflammation or peripancreatic fluid collections. Pancreatic duct not dilated. ADRENALS: Normal. KIDNEYS/URINARY TRACT: Extensive stranding fluid is seen around the left kidney. Moderate to severe left hydronephrosis noted. There is a 1 cm x 8 mm stone at the left ureteropelvic junction. Calcification seen on image number 97 at the anteromedial aspect of the left psoas muscle appears to have been present in the same position on the prior study. Urinary bladder is unremarkable. GI: Somewhat prominent amount of stool is seen in the proximal colon without evidence obstruction. The appendix has apparently been removed. PERITONEUM: No ascites or free air. RETROPERITONEUM: No mass or adenopathy. REPRODUCTIVE: 4 cm left ovarian cyst is suspected. Some calcification is also noted in the left ovary. VASCULATURE: No abdominal aortic aneurysm. MUSCULOSKELETAL: No significant abnormality. OTHER: No other abnormality. THIS IS AN ELECTRONICALLY VERIFIED FINAL REPORT 03/04/2024 11:29 PM - Electronically signed by Ancelmo Hong M.D. KH: MARTINA Report ID: [id number] Reading Location: [id number] IMPRESSION: 1 cm x 8 mm stone at the left ureteropelvic junction with moderate to severe left hydronephrosis. 4 cm left ovarian cyst is suspected. Follow-up, nonemergent ultrasound to ensure resolution is recommended. us Evens Alfonso MD IMG CT ORDERABLES Final Re sult * CHLAMYDIA & GC DNA PROBE > 12 (03/01/2024 12:01 PM HEALTH CARE ADMINISTRATOR) CHLAMYDIA DNA NEGATIVE NEGATIVE 03/02/2024 7:08 AM HEALTH CARE ADMINISTRATOR [facility] Comment: Presumed negative for C. trachomatis. A negative result does not preclude C. trachomatis infection because results are dependent on adequate specimen collection, absence of inhibitors, and sufficient DNA to be detected. This test was performed using DALE 5800 Real Time PCR. GC DNA NEGATIVE NEGATIVE 03/02/2024 7:08 AM HEALTH CARE ADMINISTRATOR [facility] Comment: Presumed negative for N. gonorrhoeae. A negative result does not preclude N. gonorrhoeae infection because results are dependent on adequate specimen collection, absence of inhibitors, and sufficient DNA to be detected. This test was performed using DLAE 5800 Real Time PCR. Urine URINE / Unknown Non-Phlebotomy Collection / Unknown 03/01/2024 12:01 PM HEALTH CARE ADMINISTRATOR 03/01/2024 12:01 PM HEALTH CARE ADMINISTRATOR us Aubree Alvarez APRN, DESIGN CONSULTANT MICROBIOLOGY - GENERAL ORD ERABLES Final Result [facility] [address] [place] [place] [address], * VITAMIN D, 25 HYDROXY TOTAL (03/01/2024 11:53 AM HEALTH CARE ADMINISTRATOR) VITAMIN D, 25 HYDROX 25.1 ng/mL 03/01/2024 1:18 PM HEALTH CARE ADMINISTRATOR [facility] Blood Venipuncture / Unknown 03/01/2024 11:53 AM HEALTH CARE ADMINISTRATOR 03/01/2024 11:53 AM HEALTH CARE ADMINISTRATOR Narrative [facility] - 03/01/2024 1:18 PM HEALTH CARE ADMINISTRATOR Published reference ranges for Vitamin D vary depending on time and place and method of testing, and on patient's age, sex, ethnicity and levels of other measured analytes such as parathormone, calcium and phosphorus. The result should be evaluated in conjunction with clinical findings and suspicions. [place] [employer] and Endocrine Clinical Practice Guidelines: Status Vitamin D levels (ng/mL) Deficient <=20 At risk of inadequacy 21-29 Sufficient 30-100 Centers of Disease Control and Prevention Guidelines: Status Vitamin D levels (ng/mL) Deficient <13 At risk of inadequacy 13-19 Sufficient 20-50 Possibly harmful >50 References: [place] [employer], 2010 Dietary reference intakes for calcium and vitamin D. [place]: The National Academies Press. Frdia M, Jens N, Cyndi GARCIA, et al., Evaluation, treatment, and prevention of Vitamin D deficiency: an Endocrinology Clinical Practice Guideline. JCEM 2011 96: 7 9296-1618. Elvia A, Nicola C, Ezio D, et al., Vitamin D Status: [place], 6003-7010, [facility] data brief, no. 59, MD Camila: [facility] for Health Statistics. 2011. us Aubree Alvarez APRN, SHARLA CHEMISTRY ORDERABLES Final Result Performing Organization Address City/[facility]/ZIP Co de Phone Number [facility] [place] [address] * HIV 1 & 2 ANTIBODY & ANTIGEN SCREEN (03/01/2024 11:53 AM HEALTH CARE ADMINISTRATOR) Pathologist [facility] HIV 1 & 2 ANTIBODY & ANTIGEN SCREEN NON DETECTED NON DETECTED 03/01/2024 11:14 PM HEALTH CARE ADMINISTRATOR [facility] Blood Venipuncture / Unknown 03/01/2024 11:53 AM HEALTH CARE ADMINISTRATOR 03/01/2024 11:53 AM HEALTH CARE ADMINISTRATOR us Aubree Alvarez APRN, SHARLA LAB SEND OUTS Final Resu lt Performing Organization Address [facility] Co de Phone Number [facility] [address] [place] [address], [place] * THYROID SCREEN WITH REFLEX (03/01/2024 11:53 AM HEALTH CARE ADMINISTRATOR) Pathologist [facility] TSH 1.431 0.300 - 5.000 mIU/L 03/01/2024 1:11 PM HEALTH CARE ADMINISTRATOR [facility] Blood Venipuncture / Unknown 03/01/2024 11:53 AM HEALTH CARE ADMINISTRATOR 03/01/2024 11:53 AM HEALTH CARE ADMINISTRATOR us Aubree Alvarez APRN, DESIGN CONSULTANT CHEMISTRY ORDERABLES Final Result Performing Organization Address [facility] Co de Phone Number [facility] [address] [place] [address] * SYPHILIS IGG/IGM W/REFLEX (03/01/2024 11:53 AM HEALTH CARE ADMINISTRATOR) Pathologist [facility] SYPHILIS IGG/IGM Nonreactive Nonreactive 03/01/2024 11:12 PM HEALTH CARE ADMINISTRATOR [facility] Comment: No serologic evidence of infection to Treponema pallidum (syphilis). Repeat testing may be considered in patients with suspected acute or primary syphilis in 2 to 4 weeks. Antibody testing was performed by multiplex flow immunoassay on the [employer] platform. Blood Venipuncture / Unknown 03/01/2024 11:53 AM HEALTH CARE ADMINISTRATOR 03/01/2024 11:53 AM HEALTH CARE ADMINISTRATOR us Aubree Alvarez SOFTWARE APPLICATIONS ARCHITECT, DESIGN CONSULTANT IMMUNOLOGY ORDERABLES Tori l Result [facility] [address] [place] [address], * HEMOGLOBIN A1C W/ ESTIMATED GLUCOSE (03/01/2024 11:53 AM HEALTH CARE ADMINISTRATOR) Pathologist [facility] HGB-A1C 5.4 4.0 - 6.0 % 03/01/2024 1:03 PM HEALTH CARE ADMINISTRATOR [facility] Est Average Glucose 108.3 mg/dL 03/01/2024 1:03 PM HEALTH CARE ADMINISTRATOR [facility] Blood Venipuncture / Unknown 03/01/2024 11:53 AM HEALTH CARE ADMINISTRATOR 03/01/2024 11:53 AM HEALTH CARE ADMINISTRATOR Narrative [facility] - 03/01/2024 1:03 PM HEALTH CARE ADMINISTRATOR HEMOGLOBIN A1C: DIABETIC PATIENTS: WELL-CONTROLLED: 6.2 - 7.0 INTERMEDIATE WELL-CONTROLLED: 7.0 - 9.0 POORLY-CONTROLLED: >9.0 us Aubree Alvarez SOFTWARE APPLICATIONS ARCHITECT, DESIGN CONSULTANT CHEMISTRY ORDERABLES Final Result [facility] [address] [place] [address] * HSV TYPE II IGG ANTIBODY (03/01/2024 11:53 AM HEALTH CARE ADMINISTRATOR) Pathologist [facility] HSV TYPE 2 IGG AB >8.0 AI 03/01/2024 11:12 PM HEALTH CARE ADMINISTRATOR [facility] Comment: <0.9 Negative. No detectable HSV-2 IgG antibody. 0.9 - 1.0 Equivocal >=1.1 Positive Antibody testing was performed by multiplex flow immunoassay on the W-locate platform. Blood Venipuncture / Unknown 03/01/2024 11:53 AM HEALTH CARE ADMINISTRATOR 03/01/2024 11:53 AM HEALTH CARE ADMINISTRATOR us Aubree Alvarez SOFTWARE APPLICATIONS ARCHITECT, DESIGN CONSULTANT CHEMISTRY ORDERABLES Final Result [facility] [address] [place] [address], [place] * HSV TYPE I IGG ANTIBODY (03/01/2024 11:53 AM HEALTH CARE ADMINISTRATOR) HSV TYPE 1 IGG AB 0.3 AI 03/01/2024 11:12 PM HEALTH CARE ADMINISTRATOR [facility] Comment: <0.9 Negative. No detectable HSV-1 IgG antibody. 0.9 - 1.0 Equivocal >=1.1 Positive Blood Venipuncture / Unknown 03/01/2024 11:53 AM HEALTH CARE ADMINISTRATOR 03/01/2024 11:53 AM HEALTH CARE ADMINISTRATOR us Aubree Alvarez SOFTWARE APPLICATIONS ARCHITECT, DESIGN CONSULTANT CHEMISTRY ORDERABLES Final Result Performing Organization Address [facility] Co de Phone Number [facility] [address] [place] [address], [place] * (ABNORMAL) VITAMIN B12 (03/01/2024 11:53 AM HEALTH CARE ADMINISTRATOR) VITAMIN B12 842(H) 213 - 816 pg/mL 03/01/2024 1:18 PM HEALTH CARE ADMINISTRATOR [facility] Blood Venipuncture / Unknown 03/01/2024 11:53 AM HEALTH CARE ADMINISTRATOR 03/01/2024 11:53 AM HEALTH CARE ADMINISTRATOR us Aubree Alvarez SOFTWARE APPLICATIONS ARCHITECT, DESIGN CONSULTANT CHEMISTRY ORDERABLES Final Result Performing Organization Address City/[facility]/ZIP Co de Phone Number [facility] [address] [place] [address] * (ABNORMAL) LIPID PANEL (03/01/2024 11:53 AM HEALTH CARE ADMINISTRATOR) CHOLESTEROL 209(H) <200 mg/dL 03/01/2024 1:00 PM HEALTH CARE ADMINISTRATOR [facility] TRIGLYCERIDES 61 <150 mg/dL 03/01/2024 1:00 PM HEALTH CARE ADMINISTRATOR [facility] HDL CHOLESTEROL 69 >40 mg/dL 1:00 PM HEALTH CARE ADMINISTRATOR [facility] LDL 128 <130 mg/dL 03/01/2024 1:00 PM HEALTH CARE ADMINISTRATOR [facility] VLDL 12 10 - 50 mg/dL 03/01/2024 1:00 PM [facility] CHOL/HDL RATIO 3.0 0.0 - 4.4 03/01/2024 1:00 PM HEALTH CARE ADMINISTRATOR [facility] NON-HDL CHOLESTEROL 140(H) <130 mg/dL 03/01/2024 1:00 PM HEALTH CARE ADMINISTRATOR [facility] IS THE PATIENT REQUIRED TO BE FASTING? Yes 03/01/2024 1:00 PM [facility] HAS THE PATIENT BEEN FASTING? Yes 03/01/2024 1:00 PM [facility] Blood Venipuncture / Unknown 03/01/2024 11:53 AM HEALTH CARE ADMINISTRATOR 03/01/2024 11:53 AM HEALTH CARE ADMINISTRATOR us Aubree Alvarez SOFTWARE APPLICATIONS ARCHITECT, DESIGN CONSULTANT CHEMISTRY ORDERABLES Final Result [facility] [address] [place] [address] * HEPATITIS C ANTIBODY (03/01/2024 11:53 AM HEALTH CARE ADMINISTRATOR) hepatitis C antibody 0.08 <1 S/CO 03/01/2024 10:58 PM HEALTH CARE ADMINISTRATOR [facility] Comment: Signal/Cutoff ratio < 0.79 is Nondetected Signal/Cutoff ratio 0.80-0.99 is Grayzone Signal/Cutoff ratio > 0.99 is Detected Supplemental assays are recommended if signal/cutoff ratio is >/=1.00. Signal/cutoff ratio result >/= 5.00 is 97% predictive of positivity for recombinant immunoblot assay (RIBA) and will be reported to the [place] Department of Public Health as required. Blood Venipuncture / Unknown 03/01/2024 11:53 AM HEALTH CARE ADMINISTRATOR 03/01/2024 11:53 AM HEALTH CARE ADMINISTRATOR Aubree Alvarez APRN, DESIGN CONSULTANT CHEMISTRY ORDERABLES Final Result Performing Organization Address [facility] Co de Phone Number [facility] [address] [place] [address], [place] * HEPATITIS B SURFACE ANTIBODY (HBSAB) (03/01/2024 11:53 AM HEALTH CARE ADMINISTRATOR) HEPATITIS B SURFACE ANTIBODY <8.00 mIU/mL 03/01/2024 10:59 PM HEALTH CARE ADMINISTRATOR [facility] Comment:Individual is consid ered not immune to HBV infection. Blood Venipuncture / Unknown 03/01/2024 11:53 AM HEALTH CARE ADMINISTRATOR 03/01/2024 11:53 AM HEALTH CARE ADMINISTRATOR Aubree Alvarez APRN, DESIGN CONSULTANT CHEMISTRY ORDERABLES Final Result Performing Organization Address [facility] Co de Phone Number [facility] [address] [place] [address], [place] * (ABNORMAL) CMP (COMPREHENSIVE METABOLIC PANEL) (03/01/2024 11:53 AM HEALTH CARE ADMINISTRATOR) SODIUM 140 136 - 145 mmol/L 03/01/2024 1:00 PM HEALTH CARE ADMINISTRATOR [facility] POTASSIUM 4.0 3.5 - 5.1 mmol/L 03/01/2024 1:00 PM HEALTH CARE ADMINISTRATOR [facility] CHLORIDE 105 98 - 107 mmol/L 03/01/2024 1:00 PM HEALTH CARE ADMINISTRATOR [facility] CO2, VENOUS 27 22 - 30 mmol/L 03/01/2024 1:00 PM HEALTH CARE ADMINISTRATOR [facility] ANION GAP 12.0 <18.0 mmol/L 03/01/2024 1:00 PM [facility] GLUCOSE 94 70 - 99 mg/dL 03/01/2024 1:00 PM [facility] BUN 22(H) 5 - 18 mg/dL 03/01/2024 1:00 PM [facility] CREATININE, BLOOD 0.89 0.60 - 1.00 mg/dL 03/01/2024 1:00 PM [facility] BUN/CREATININE RATIO 25(H) 12 - 20 ratio 03/01/2024 1:00 PM [facility] TOTAL PROTEIN 7.4 6.3 - 8.2 g/dL 03/01/2024 1:00 PM [facility] ALBUMIN 4.5 3.5 - 5.0 g/dL 03/01/2024 1:00 PM [facility] A/G RATIO 1.6 1.0 - 2.2 03/01/2024 1:00 PM [facility] CALCIUM 9.9 8.7 - 10.5 mg/dL 03/01/2024 1:00 PM [facility] T BILI 0.3 0.2 - 1.2 mg/dL 03/01/2024 1:00 PM [facility] SGOT (AST) 21 5 - 34 U/L 03/01/2024 1:00 PM [facility] SGPT (ALT) 26 0 - 55 U/L 03/01/2024 1:00 PM [facility] ALKALINE PHOSPHATASE 55 40 - 150 U/L 03/01/2024 1:00 PM [facility] IS THE PATIENT REQUIRED TO BE FASTING? No 03/01/2024 1:00 PM [facility] GFR, ESTIMATED >60 >=60 03/01/2024 1:00 PM [facility] Comment: Creatinine Clearance is the preferred criteria for selecting drug dose adjustments in renally impaired patients. The GFR is provided as additional pertinent clinical information. GFR is reported in mL/min/1.73 sq m. Calculation based on the Chronic Kidney Disease Epidemiology Collaboration (CKD- EPI) equation refit without adjustment for race. GFR, EST. >60 >=60 024 1:00 PM HEALTH CARE ADMINISTRATOR [facility] GFR, EST. NONAFRICAN >60 >=60 03/01/2024 1:00 PM HEALTH CARE ADMINISTRATOR [facility] Blood Venipuncture / Unknown 03/01/2024 11:53 AM HEALTH CARE ADMINISTRATOR 03/01/2024 11:53 AM HEALTH CARE ADMINISTRATOR us Aubree Alvarez SOFTWARE APPLICATIONS ARCHITECT, DESIGN CONSULTANT CHEMISTRY ORDERABLES Final Result [facility] [address] [place] [address] * HM COLONOSCOPY (08/14/2017) us David Liz MD PROCEDURE/MINOR SURGICAL ORDER WERNER Edited Result - Final from Last 3 Months or Most Recently Relevant to Health Maintenance Insurance MEDICA[place] Advance Directives * Full Code (Latest Code Status on File) Date Activated Date Inactivated Comments 03/05/2024 1:21 AM CPR-Full Treatm ent: FULL ARREST: Attempt Resuscitation/CPR wit intubation and mechanical ventilation. PRE-ARREST: Use entire range of life support measures to stabilize the patient. * Full Code Date Activated Date Inactivated Comments 04/08/2015 5:47 PM 04/09/2015 8:08 PM Full Code: FULL ARREST: Attempt Resuscitation/CPR and use intubation and mechanical ventilation as indicated. PRE-ARREST: Use all measures to stabilize patient. Care Teams Log Haul Operator Relationship Specialty Start Date End Date Aubree Alvarez, SOFTWARE APPLICATIONS ARCHITECT, DESIGN CONSULTANT [address] [address] PCP - General Certified Nurse Practitioner 03/01/24 Niranjan Valdez MD [address] [facility], [address] [address] Consulting Physician Urology 03/14/24
--- OUTSIDE RECORDS SUMMARY | 2024-04-19 15:25 | XMS_ITS | Patient Health Record ---
Author Organization [facility] Address [address] [place] [address] Care Team Providers Care Battery Container Inspector Name Role Phone Farzaneh Padron Primary Care Provider Hanny Monet Unavailable [phone] Lynette Dahl Unavailable [phone] Eve Hunter Unavailable [phone] Allergies Allergen (clinical drug ingredient) Drug/Non Drug Allergy documented on EMR Reaction Allergy Type Onset Date Status promethazine Phenergan Unknown Drug Allergy Acti ve ampicillin Ampicillin Unknown Drug Allergy Activ e Reason For Referral No Information Medications Medication SIG (Take, Route, Frequency, Duration) Notes Start Date End Date Status Forfivo XL 450 MG 1 tablet in the morning Orally Once a day for 30 day(s) 01/31/2021 Active Metoprolol Tartrate 50 MG Take 1 tablet by mouth twice daily for 30 no more refills until she has an appt Active Social History Tobacco Use: Social History Observation [...] drugs Dilaudid in 2010 OTC denies location- [place] Current home location- [place] though chart states Jessy Who lives at [...] for associates Occupation/Job history- 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 She reports that she is starting to do more things, like being outside and crafts. Social Activities-- Client reports that she has a good support system, but that she doesn't have any friends due to her trust issues. Spiritual Affiliation- Believes in god, does not go to tenriism Probation/Legal trouble/?- Client reports having three DUI's, but hopes to get her license back in the near future. Client reports making poor decisions involving drugs. LEGAL: Client is currently on parole. [facility] Client has a previous possession charge and 3 DUI's. Client [facility] until 05/14/2020. Felony. PARENTING- Client reports that her substance use affected her role as a parent. Smoking history--- vapes Drug/alcohol use Substance Alcohol 2018 Marijuana Age 12 cocaine 2018 Heroin/opioid 2010 Meth August 2020 LSD/PCP 20 yrs ago IV drugs Dilaudid in 2010 OTC denies location- [place] Current home location- [place] though chart states [place] Who lives at home? 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 She reports that she is starting to do more things, like being outside and crafts. Social Activities-- Client reports that she has a good support system, but that she doesn't have any friends due to her trust issues. Spiritual Affiliation- Believes in god, does not go to tenriism Probation/Legal trouble/?- Client reports having three DUI's, but hopes to get her license back in the near future. Client reports making poor decisions involving drugs. LEGAL: Client is currently on parole. [facility] Client has a previous possession charge and 3 DUI's. Client [facility] until 05/14/2020. Felony. PARENTING- Client reports that her substance use affected her role as a parent. Smoking history--- vapes Drug/alcohol use Substance Alcohol 2018 Marijuana Age 12 cocaine 2018 Heroin/opioid 2011 Meth 2 wks ago LSD/PCP 20 yrs ago IV drugs Dilaudid in 2010 OTC denies location- [place] Current home location- [place] though chart states [place] Who lives at home? 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 She reports that she is starting to do more things, like being outside and crafts. Social Activities-- Client reports that she has a good support system, but that she doesn't have any friends due to her trust issues. Spiritual Affiliation- Believes in god, does not go to tenriism Probation/Legal trouble/?- Client reports having three DUI's, but hopes to get her license back in the near future. Client reports making poor decisions involving drugs. LEGAL: Client is currently on parole. [facility] Client has a previous possession charge and 3 DUI's. Client was incarcerated at [facility] until 05/14/2020. Felony. PARENTING- Client reports that her substance use affected her role as a parent. Smoking history--- vapes Drug/alcohol use Substance Alcohol 2018 Marijuana Age 12 cocaine 2018 Heroin/opioid 2010 Meth 2 wks ago LSD/PCP 20 yrs ago IV drugs Dilaudid in 2010 OTC denies location- [place] Current home location- [place] though chart states [place] Who lives at home? 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 She reports that she is starting to do more things, like being outside and crafts. Social Activities-- Client reports that she has a good support system, but that she doesn't have any friends due to her trust issues. Spiritual Affiliation- Believes in god, does not go to tenriism Probation/Legal trouble/?- Client reports having three DUI's, but hopes to get her license back in the near future. Client reports making poor decisions involving drugs. LEGAL: Client is currently on parole. [facility] Client has a previous possession charge and 3 DUI's. Client was incarcerated at [facility] until 05/14/2020. Felony. PARENTING- Client reports that her substance use affected her role as a parent. 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 She reports that she is starting to do more things, like being outside and crafts. Social Activities-- Client reports that she has a good support system, but that she doesn't have any friends due to her trust issues. Spiritual Affiliation- Believes in god, does not go to tenriism Probation/Legal trouble/?- Client reports having three DUI's, but hopes to get her license back in the near future. Client reports making poor decisions involving drugs. LEGAL: Client is currently on parole. [facility] Client has a previous possession charge and 3 DUI's. Client was incarcerated at [facility] until 05/14/2020. Felony. PARENTING- Client reports that her substance use affected her role as a parent. 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 She reports that she is starting to do more things, like being outside and crafts. Social Activities-- Client reports that she has a good support system, but that she doesn't have any friends due to her trust issues. Spiritual Affiliation- Believes in god, does not go to tenriism Probation/Legal trouble/?- Client reports having three DUI's, but hopes to get her license back in the near future. Client reports making poor decisions involving drugs. LEGAL: Client is currently on parole. [facility] Client has a previous possession charge and 3 DUI's. Client was [facility] until 05/14/2020. Felony. PARENTING- Client reports that her substance use affected her role as a parent. Problems Problem Type SNOMED Code ICD Code Onset Dates Problem Status W/U Status Risk Notes Problem Posttraumatic stress disorder (00202375) Post traumatic stress disorder (F43.10) Active confirmed Problem Generalized anxiety disorder (96312948) PENNY (generalized anxiety disorder) (F41.1) Active confirmed Problem Acute stress disorder (16839458) Stress reaction (F43.0) Active confirmed Vital Signs Heart Rate 78 /min 09/15/2023 Respiratory Rate 16 /min 09/15/2023 Blood pressure diastolic 72 mm Hg 09/15/2023 Oximetry 98 % 09/15/2023 Height 61.00 in 09/15/2023 Blood pressure systolic 94 mm Hg 09/15/2023 Weight 131.00 lbs 09/15/2023 BMI 24.75 kg/m2 09/15/2023 Encounters Encounter Location Date Provider Diagnosis [facility] [address] [facility] [place] [address] 10/09/2023 Lynette Hallsvetlana [facility] [place] [address] [place] [address] 09/15/2023 Lynette Hallsvetlana [place] [address] [address] [facility] [place] [address] 09/15/2023 Eve Hunter Adult general medical exam Z00.00 Assessments Encounter Date Diagnosis (ICD Code) Assessment Notes Treatment Notes Treatment Clinical Notes Section Notes 09/15/2023 Adult general medical exam (ICD-10 - Z00.00) 09/15/2023 Other Continue treatment as recommended by [facility] staff. Encouraged patient to obtain routine medical care with patient's own primary care provider or establish as a patient at [facility] if no current primary care provider. Continue treatment as recommended by [facility] staff. Encouraged patient to obtain routine medical care with patient's own primary care provider or establish as a patient at [facility] if no current primary care provider. Continue treatment as recommended by [facility] staff. Encouraged patient to obtain routine medical care with patient's own primary care provider or establish as a patient at [facility] if no current primary care provider. 09/15/2023 Other Provided case management services to address social determinants of health needs and reduce barriers to health care services. Plan Of Treatment No Information Insurance Providers Payer Name Payer Address Payer Phone Subscriber Number Group Number Insured Name Patient Relationship to Insured Coverage Start Date Coverage End Date MEDICAID [address] [place] [address] [id number] Parisa Gee Self - patient is the insured 1 1 [facility] [address] [address] [id number] AdriannaParisa hollis Self - patient is the insured [address] [place] [address] [id number] 4 Parisa Gee Self - patient is the insured 1 Medical (General) History Medical History History ICD Code heart palpitation constipation irritable bowel syndrome Surgical History Surgery Date(Month/Year) appendectomy cholecystectomy c section PARTIAL HYSTERECTOMY tonsilectomy
--- OUTSIDE RECORDS SUMMARY | 2024-04-19 15:25 | XMS_ITS | Clinical Summary ---
Author Organization [facility] Address [facility] [place] [address] Care Team Providers Care Fuel Tank Sealer And Tester Name Role Phone None, Provider MD Primary Care Provider Unavaila ble Allergies Active Allergy Reactions Criticality Noted Date Comments Ampicillin Unknown 02/17/2019 Pt stated tolerated rocephin and amoxicillin Meperidine Unknown 02/17/2019 Promethazine Unknown 02/17/2019 Medications hydrOXYzine 10 MG tablet Take 1 tablet (10 mg total) by mouth 3 (three) times daily as needed. 30 tablet 02/17/2019 Active metoprolol succinate ER 25 MG 24 hr tablet Take 1 tablet (25 mg total) by mouth daily. 30 tablet 02/17/2019 Active Social History Tobacco Use Types Packs/Day Years Used Date Smoking Tobacco: Never Assessed Comments Unknown Sex and Gender Information Value Date Recorded Sex Assigned at Not on file Legal Sex Female 5:24 PM CDT Gender Identity Not on file Sexual Orientation Not on file Last Filed Vital Signs Vital Sign Reading Time Taken Comments Blood Pressure 106/85 02/17/2019 6:51 PM SEWAGE TREATMENT PLANT OPERATOR Pulse 91 02/17/2019 6:51 PM SEWAGE TREATMENT PLANT OPERATOR Temperature 37.1 C (98.7 F) 02/17/2019 6:51 PM SEWAGE TREATMENT PLANT OPERATOR Respiratory Rate 19 02/17/2019 6:51 PM SEWAGE TREATMENT PLANT OPERATOR Oxygen Saturation 98% 02/17/2019 6:51 PM SEWAGE TREATMENT PLANT OPERATOR Inhaled Oxygen Concentration - - Weight 61.9 kg (136 lb 7.4 oz) 02/17/2019 6:55 P M SEWAGE TREATMENT PLANT OPERATOR Height 154.9 cm (5' 1 ) 02/17/2019 6:51 PM SEWAGE TREATMENT PLANT OPERATOR Body Mass Index 25.78 02/17/2019 6:51 PM SEWAGE TREATMENT PLANT OPERATOR Plan of Treatment Health Maintenance Due Date Last Done Comments Cervical Cancer Screening Pa p Smear (Age 30 to 64) Every 3 Years 1978 Colorectal Cancer Screening Colonoscopy (10 Years) 1978 Annual Physical 1981 Hepatitis C 1996 DTaP, Tdap and Td Vaccines ( 1 - Tdap) 1997 Hepatitis B Vaccines (1 of 3 - 19+ 3-dose series) 1997 Cervical Cancer Screening Pa p with HPV Testing (Age 30 to 64) Every 5 Years 2008 Cervical Cancer Screening with HPV 2008 Mammogram Screening 2018 COVID-19 Vaccine ( - 2023-2 5 season) 2023 Influenza Adult (#1) 2023 HPV Vaccines Aged Out No longer eligi ble based on patient's age to complete this topic Meningococcal B Vaccine Aged Out No l onger eligible based on patient's age to complete this topic Meningococcal Vaccine Aged Out No merary ngoc eligible based on patient's age to complete this topic Pneumococcal Vaccine: Pediat rics (0 to 5 Years) and At-Risk Patients (6 to 64 Years) Aged Out No longer eligible b ased on patient's age to complete this topic RSV Immunizations Under 20 Months Aged Out No longer eligible based on patient's age to complete this topic Insurance MEDICAID Care Teams Fuel Tank Sealer And Tester Relationship Specialty Start Date End Date None, Provider, PCP - General 02/17/19
--- OUTSIDE RECORDS SUMMARY | 2024-04-19 15:27 | XMS_ITS ---
Author Organization [facility] Address [address] [place] [address] Care Team Providers Care Rubber Chemist Name Role Phone Farzaneh Padron Primary Care Provider Hanny Monet REASON FOR VISIT On CRU- New Eval Encounters Encounter Location Date Provider Diagnosis [address] [place] [address] 09/16/2023 Farzaneh Padron Plan Of Treatment No Information Progress Notes * MONICAKARLIERNESTOMikeOB: 9 (44 yo F)Acc No.[id number]:09/16/2023 UNLOCKED PROGRESS NOTE Patient: Parisa BOYD Provider: Jason Padron DNP, SHIRA-LORAINE, WAREHOUSE LOADER :1980 A ge:43 Y S ex:Female Date:09/16/2023 Address:[address] [place], [place] [id number] Subjective: * Chief Complaints: * 1 . On CRU- New Eval. * Medical History: Objective: * Vitals: Assessment: Plan: * Treatment: * * Electronic signature of Neda Padron on 04/19/2024 at 03:24 PM GREENSKEEPER Sign off status: Pending * Provider: Jason Padron DNP, HUMPHREYP-BC, WAREHOUSE LOADER Date: 09/16/2023 Generated for Printing/Faxing/eTransmitting on: 04/19/2024 03:24 PM GREENSKEEPER
== END 2024-04-19 15:41 | disposition home or self-care (01) ==
PROVIDERS: Emergency Provider Nurse Practitioner
DX: Z76.0 Encounter for issue of repeat prescription (principal); Z87.442 Personal history of urinary calculi
CPT/HCPCS: 99211; G0463

== ENCOUNTER 2024-07-02 12:47 | Emergency (ER) | payer BC, SELFPAY ==
[2024-07-02 12:57] VITALS: BP 96/61; PULSE 77; RESP 16; TEMP 37.2; O2SAT 100
--- NOTE | 2024-07-02 13:05 | ED.FEMALEGU ---
HPI - Female Genitourinary General Chief complaint: Urogenital-Female Stated complaint: urinary irritation Time Seen by Provider: 07/02/24 13:05 Source: patient and RN notes reviewed Mode of arrival: ambulatory Limitations: no limitations History of Present Illness HPI Narrative: 44-year-old female presents Express Care complaining of urinary symptoms for 2 days. Patient said she initially had left flank pain that has subsided. She does have a history of kidney stones and was wondering maybe she passed another stone. She has had a history of a renal stent placed earlier this year. Since then she states having burning with urination, increased frequency and hesitancy, body aches, and chills. Patient denies any abdominal pain, back pain, nausea, vomiting, diarrhea, hematuria, or any vaginal discharge or any concern for STIs. The having a past history includes kidney stones and palpitations. Related Data Home Medications ?Medication ?Instructions ?Recorded ?Confirmed ?Last Taken ?Type bupropion HCl 150 mg 24 hr tablet, mg PO 03/13/24 Unknown History extended release metoprolol succinate 50 mg mg PO 03/13/24 Unknown History tablet,extended release 24 hr Allergies Allergy/AdvReac Type Severity Reaction Status Date / Time fentanyl Allergy Unknown Unknown Verified 07/02/24 12:56 ketorolac Allergy Unknown Unknown Verified 07/02/24 12:56 meperidine Allergy Unknown Unknown Verified 07/02/24 12:56 metoclopramide Allergy Unknown Unknown Verified 07/02/24 12:56 morphine Allergy Unknown Unknown Verified 07/02/24 12:56 promethazine Allergy Unknown Unknown Verified 07/02/24 12:56 Review of Systems Review of Systems: CONSTITUTIONAL: Denies fever or sweats. Positive for body aches and chills. EYES: Denies visual changes, redness, or discharge. ENT: Denies rhinorrhea, congestion, sore throat, or otalgia. CARDIOVASCULAR: Denies chest pain, palpitations, or edema. RESPIRATORY: Denies cough or dyspnea. GASTROINTESTINAL: Denies abdominal pain, nausea, vomiting, or diarrhea. GENITOURINARY: Positive for dysuria, hesitancy, frequency. Negative for hematuria, vaginal discharge. SKIN: Denies rash or itching. MUSCULOSKELETAL: Denies back pain, joint pain, or myalgia. NEUROLOGIC: Denies headache, numbness, or weakness. PSYCHIATRIC: Denies anxiety or depression. All other systems reviewed are negative, except as documented in HPI. [facility] Past Medical History Medical History Depression Kidney stone Palpitations Surgical History Surgical History History of tonsillectomy H/O: hysterectomy Status post laser lithotripsy of ureteral calculus ureteral stent Family History Family History Mother Depression Hypertension Family history of elevated blood lipids Other Diabetes mellitus Family history of tuberculosis Social History Social History Smoking status: Unknown if ever smoked Alcohol intake: never Substance use: unknown Living arrangements: with family Gender identity (if verbalized by the patient): Female Comments At the time of my signature, I reviewed and agree with the nursing past medical, surgical, social, and family history. There is no relevant family history pertinent to the patient complaint. Exam Narrative: GENERAL: This is a well-nourished, well-developed adult, in no apparent distress. They are non ill-appearing, nontoxic appearing. HEAD: normocephalic, atraumatic. EYES: Sclera clear/white. Conjunctiva normal. Vision is grossly intact. Extraocular movements intact EARS: External ears normal, Hearing grossly intact. NOSE: External nose normal THROAT: Mucous membranes moist, NECK: Normal range of motion CARDIOVASCULAR: Regular rate and rhythm without murmurs, gallops, or rubs. RESPIRATORY: Clear to auscultation. Breath sounds equal bilaterally. No wheezes, rales, or rhonchi. GASTROINTESTINAL: Abdomen soft, flat, non-tender, nondistended. Bowel sounds are active. No hepato-splenomegaly, or palpable masses. No guarding. No rebound tenderness. SKIN: warm, Dry, intact with no suspicious lesions or rash, good texture and turgor. NEURO: awake, alert, and oriented to person, place and time. There were no obvious focal neurologic abnormalities. EXTREMITIES: No joint tenderness, effusion, or edema noted. BACK: Nontender without deformity. Right CVA tenderness. No left CVA tenderness. Course Course Emergency Course: Patient blood pressure is on the lower end of normal. Patient says she took her metoprolol approximately 1 hour prior to arrival. She says she takes metoprolol for her palpitations. Patient says her blood pressure normally runs in the 90 systolic. Patient denies any dizziness or lightheadedness while sitting or with position changes, syncope, or any symptoms. Advised patient to follow-up with PCP about her blood pressure medication as she may be over therapeutic. Portions of this record may have been created with voice recognition software Level of Care: Express Care Visit Vital Signs Vital signs: Vital Signs Temperature 99 F 07/02/24 12:57 Pulse Rate 77 07/02/24 12:57 Respiratory Rate 16 07/02/24 12:57 Blood Pressure 96/61 L 07/02/24 12:57 Pulse Oximetry 100 07/02/24 12:57 Oxygen Delivery Room Air 07/02/24 12:57 Temperature 99 F 07/02/24 12:57 Pulse Rate 77 07/02/24 12:57 Respiratory Rate 16 07/02/24 12:57 Blood Pressure 94/60 L 07/02/24 13:19 Pulse Oximetry 100 07/02/24 12:57 Oxygen Delivery Room Air 07/02/24 12:57 Reviewed MDM - Female Genitourinary MDM Narrative Medical decision making narrative: Urine dipstick shows evidence of urinary tract infection. Symptoms are consistent with a UTI. Given her CVA tenderness will treat empirically with ciprofloxacin. Urine culture is pending. Patient is well-appearing, nontoxic appearing. Discussed physical exam findings. Advised supportive measures and signs/symptoms to go to the ER. Pt is appropriate for outpt treatment and f/u. Patient blood pressure is on the lower end of normal. Patient says she took her metoprolol approximately 1 hour prior to arrival. She says she takes metoprolol for her palpitations. Patient says her blood pressure normally runs in the 90 systolic. Patient denies any dizziness or lightheadedness while sitting or with position changes, syncope, or any symptoms. Advised patient to follow-up with PCP about her blood pressure medication as she may be over therapeutic Differential Diagnosis Differential diagnosis: Likely urinary tract infection, cystitis and other (Pyelonephritis) Lab Data Attestation: I reviewed the patient's lab results. Labs: Lab Results 07/02/24 Range/Units 13:08 POC Urine Color Yellow POC Urine Clarity Clear POC Urine pH 6.0 POC Ur Specif Rector 1.025 POC Urine Protein Negative (Negative) POC Ur Glucose (UA) Negative (Negative) POC Urine Ketones Negative (Negative) POC Urine Blood Negative (Negative) POC Urine Nitrite Negative (Negative) POC Urine Bilirubin Negative (Negative) POC Urine Urobilinogen 0.2 POC U Leukocyte Esteras Trace (Negative) Critical Care Time Critical Care Time Critical Care Time: No Discharge Plan Discharge Clinical Impression: Urinary tract infection Qualifiers: Urinary tract infection type: site unspecified Hematuria presence: without hematuria Qualified Code(s): N39.0 - Urinary tract infection, site not specified Patient Disposition: Home Condition: Stable Instructions: Antibiotic Form, Urinary Tract Infection in Women (ED) Additional Instructions: Take the antibiotic as prescribed The urine will be sent of for a culture to identify what type of bacteria is causing your infection. If the culture shows that the antibiotic will not get rid of your infection, you will be notified and a new antibiotic will be called in for you. Increase water intake you will need to follow up with your PCP, call to schedule an appointment. Go to the ER for any worsening symptoms or concerns Patient Language: Monegasque Prescriptions: New ciprofloxacin HCl 500 mg tablet 500 mg PO Q12H 7 Days Qty: 14 0RF No Action metoprolol succinate 50 mg tablet extended release 24 hr PO bupropion HCl 150 mg tablet extended release 24 hr PO cetirizine [Zyrtec] 10 mg tablet 10 mg PO DAILY Qty: 20 0RF Follow-up/Referrals: UNKNOWN,DOCTOR [Primary Care Provider] - Time of Disposition: 13:18
[2024-07-02 13:11] LABS: EDUAAPPEAR Clear; EDUABILI Negative (Negative); EDUABLOOD Negative (Negative); EDUACOLOR1 Yellow; EDUAGLUCOSE Negative (Negative); EDUAKETONE Negative (Negative); EDUALEUKO Trace (Negative); EDUANITRATE Negative (Negative); EDUAPROTEIN Negative (Negative); EDUASPGRAVITY 1.025; EDUAUROBILI 0.2
[2024-07-02 13:19] VITALS: BP 94/60
--- NOTE | 2024-07-02 13:20 | PC.NURSE ---
1320 Pt BP retaken 94/60 pt states took Metoprolol 1 hour ago. PT alert and active feels fine .
--- OUTSIDE RECORDS SUMMARY | 2024-07-02 16:33 | XMS_ITS ---
Author Organization [facility] Address [address] [place] [address] Care Team Providers Care Barrel Builder Name Role Phone Farzaneh Padron Primary Care Provider [phone] Hanny Monet [phone] REASON FOR VISIT On CRU- New Eval Encounters Encounter Location Date Provider Diagnosis [address] [place] [address] 09/16/2023 Farzaneh Padron Plan Of Treatment No Information Progress Notes * MONICAKARLIERNESTOMikeOB: 9 (44 yo F)Acc No.[id number]:09/16/2023 UNLOCKED PROGRESS NOTE Patient: Parisa BOYD Provider: Jason Padron DNP, SHIRA-BC, SENIOR FIREWALL ENGINEER :1980 A ge:43 Y S ex:Female Date:09/16/2023 Address:[address] [place], [place] [id number] Subjective: * Chief Complaints: * 1 . On CRU- New Eval. * Medical History: Objective: * Vitals: Assessment: Plan: * Treatment: * * Electronic signature of Neda Padron on 07/02/2024 at 04:33 PM CDT Sign off status: Pending * Provider: Jason Padron DNP, HUMPHREYP-BC, SENIOR FIREWALL ENGINEER Date: 09/16/2023 Generated for Printing/Faxing/eTransmitting on: 07/02/2024 04:33 PM CDT
--- OUTSIDE RECORDS SUMMARY | 2024-07-02 16:33 | XMS_ITS | Encounter Summary ---
Author Organization [facility] Address [address] [facility] [place] [address] Phone Care Team Providers Care Cdl A Driver Name Role Phone Provider, None Primary Care Provider UnavailAubree Sexton APRN, VP COMPLIANCE Primary Care Provider [phone] Mana Hinson Unavailable Unavailable Niranjan Valdez MD Unavailable Reason for Visit * Reason Comments Medication Refill Encounter Details Date Type Department Care Team (Late st Contact Info) Description 04/04/2021 Refill [facility] - [facility]ology - [place] [address] [place] [address] Jennifer Mcwilliams Ella, PAC [address] [place] [address] Medication Refill Social History Tobacco Use Types Packs/Day Years Used Date Smoking Tobacco: Former Cigarettes 0 07/01/2015 - 06/30/2016 Smokeless Tobacco: Never Alcohol Use Standard Drinks/Week Comments No 0 (1 standard drink = 0.6 oz pur e alcohol) Sexually Active Control Partners Comments Yes Male Comments No Sex and Gender Information Value Date Recorded Sex Assigned at Female 03/05/2024 12:21 AM ABORIGINAL LIAISON OFFICER Legal Sex Female 8:44 PM CDT Gender Identity Female 03/05/2024 12:21 AM ABORIGINAL LIAISON OFFICER Sexual Orientation Not on file 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 Not on file documented as of this encounter Plan of Treatment Not on file documented as of this encounter Visit Diagnoses Diagnosis Tachycardia Tachycardia, unspecified documented in this encounter Additional Health Concerns Assessment Noted Time PHQ-9 Depression Total Score: 16 018 10:00 AM CDT documented as of this encounter Care Teams Cdl A Driver Relationship Specialty Start Date End Date Provider, None [place] PCP - General 11/26/21 02/29/24 Aubree Alvarez, EDUCATIONAL ADMINISTRATION TEACHER, VP COMPLIANCE [address] [place] [address] PCP - General Certified Nurse Practitioner 03/01/24 Mana Hinson [facility] Global Clinical Leader 03/03/24 03/18/24 Niranjan Valdez MD [address] [facility], [address] [address] Consulting Physician Urology 03/14/24 documented as of this encounter
--- OUTSIDE RECORDS SUMMARY | 2024-07-02 16:33 | XMS_ITS | Continuity of Care Document ---
Author Organization [facility] Address [address] [place] [address] Phone Care Team Providers Care Breaker Oiler Name Role Phone Moira ESTUARDOEarline Unavailable Unavailable Allergies, Adverse Reactions, Alerts Substance Reaction Status Criticality ampicillin Active No Information KETOROLAC TROMETHAMINE Active No In formation PROMETHAZINE HCL Active No Informat ion Medications Medication Instructions Dosage Effective Dates (start - stop) Status Comments bupropion HCl XL 150 mg 24 hr tablet, extended release take 1 tablet by oral route 2 times every day 150 MG - Active bupropion HCl XL 300 mg 24 hr tablet, extended release take 1 tablet by oral route every day 300 MG - Active metoprolol tartrate 50 mg tablet take 1 tablet by oral route 2 times every day with meals 50 MG - Active Procedures Procedure Date OFFICE/OUTPATIENT VISIT, EST Advance Directives Directive Yes / No Effective Date File Name No Information Encounters Encounter Description Practice Location Reason(s) For Visit Diagnoses Date Provider Providers Copied on Encounter [facility], [address] [place] [address], [facility], [phone] [place] No Information 9 Moiartaryn Patten. [address] [place] [address], . tel:[phone] OFFICE/OUTPA TIENT VISIT, EST [facility], [address] [place] [address], [facility], tel:[phone] [place] MED REFILLS (chief complaint) Other depressionPalpit ations 9 Stef Crews. [address] [place] [address], [place]. tel:[phone] Family History Family Member Type Diagnosis Age At Onset No Information Payers Payer name Insurance type Covered constitution party ID Authoriza tion(s) No Information Social History Type Description Quantity Date Captured Comments Alcohol Use Details Unknown Caffeine Use Details Unknown Tobacco Use Status Smoking Status No Information Sex Female Chief Complaint And Reason For Visit No Information Reason For Referral Reason For Referral No Information History Of Present Illness Encounter Date Complaint History Of Prese nt Illness MED REFILLS [facility]. Pt states she also takes hydroxyzine as well. Pt states she does not know what dose.I received pt's medication from [facility] in [place]. They only listed bupropion XL 150mg and 300mg and Metoprolol tartate.Also called [facility] pharmacy in [place]. They did fill hydroxyzine for pt, but in 01/2018 with no refills.Pt's PCP is Dr Martins at [facility] in [place]. Functional Status Date Functional Assessmen t No Information Instructions Date Instruction Additional Infor mation called pts pharmacy to confirm medications and dx meds refilled x 1 Related to Other depression called pts pharmacy to confirm medications and dx meds refilled x 1 Related to Palpitations Assessments Type Assessment Date No Information Patient Care Teams Name Effective Dates (start - stop) Status Members No Information
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
--- OUTSIDE RECORDS SUMMARY | 2024-07-02 16:33 | XMS_ITS | Clinical Summary ---
Author Organization [facility] Address [address] [place] [address] Phone Care Team Providers Care Language Interpreter Name Role Phone Aubree Alvarez APRN, SENIOR UI DESIGNER Primary Care Provider [phone] Niranjan Valdez MD Unavailable Allergies Active Allergy Reactions Criticality Noted Date Comments Ampicillin Unknown 01/23/2015 Diphenhydramine Hcl (Sleep) Anxiety 02/14/2015 Prochlorperazine Maleate Anxiety 02/14/2015 Fentanyl Other (see Comments) 03/04/2024 Restless legs Metoclopramide Hcl Other (see Comments) 04/08/2015 STATES CAUSES LEG CRAMPS Ketorolac Tromethamine Rash Medium 01/23/2015 Medications baclofen (LIORESAL) 10 MG Tablet Take 1 Tablet by mouth every 8 hours as needed for Muscle spasms. 90 Tablet 03/08/19 25 Active oxybutynin (DITROPAN) 5 MG Tablet Take 1 Tablet by mouth every 12 hours as needed (bladder spasms) for up to 180 doses. 180 Tablet 03/08/19 25 Active metoprolol Succinate (TOPROL-XL) 50 MG TABLET SR 24 HR Take 50 mg by mouth 2 times daily. 02/20/20 24 Active oxyCODONE (ROXICODONE) 5 MG TabletIndicati ons:Kidney stone Take 1 Tablet by mouth every 6 hours as needed for Severe pain. 8 Tablet 04/07/19 25 Active buPROPion (WELLBUTRIN) 150 MG XL tablet TAKE 1 TABLET BY MOUTH ONCE DAILY IN THE MORNING 90 Tablet 06/22/19 25 Active cetirizine (ZyrTEC) 10 MG Tablet Take 1 Tablet by mouth daily. 90 Tablet 2 06/22/19 25 Active metoprolol tartrate (LOPRESSOR) 50 MG TabletIndicati ons:Tachycardi a Take 1 Tablet by mouth 2 times daily. 60 Tablet 06/22/19 25 Active metoprolol tartrate (LOPRESSOR) 50 MG TabletIndicati ons:Tachycardi a Take 1 Tab by mouth 2 times daily. 180 Tab 3 07/04/19 18 025 Discontinued(Re order) buPROPion (WELLBUTRIN) 150 MG XL tablet Take 1 Tablet by mouth every morning. 90 Tablet 03/01/20 24 025 Discontinued cetirizine (ZyrTEC) 10 MG Tablet Take 10 mg by mouth daily. 03/13/19 25 025 Discontinued(Re order) Active Problems Problem Noted Date Diagnosed Date [...] Encounters Date Type Department Care Team Description 06/21/2024 Refill [facility] [place] [address] [place] [id number] Aubree Alvarez APRN, SENIOR UI DESIGNER Medication Refill (Metorpolol) 06/21/2024 Refill [facility] [place] [address] [place] [address] Aubree Alvarez APRN, SENIOR UI DESIGNER Medication Refill 06/21/2024 Refill [facility] [place] [address] [place] [address] Aubree Alvarez, LEXI, SENIOR UI DESIGNER Medication Refill 04/21/2024 12:09 PM FORM PRESS OPERATOR Anesthesia Event [facility] [address] [place] [address] Diomedes Adame APRN, CHUTE LOADER 04/21/2024 11:40 AM FORM PRESS OPERATOR - 04/21/2024 1:10 PM FORM PRESS OPERATOR Surgery [facility] [address] [address] [place] [address] Niranjan Valdez MD LEFT URETERAL EXTRACORPORAL SHOCKWAVE LITHOTRIPSY 04/21/2024 10:09 AM FORM PRESS OPERATOR - 04/21/2024 4:50 PM FORM PRESS OPERATOR [facility] [address] [place] [address] Niranjan Valdez MD Discharge Disposition: Discharged to home or Selfcare 04/20/2024 Travel 04/13/2024 Travel 04/07/2024 Telephone [facility] [address] [place] [address] Niranjan Valdez MD Medication Management from Last 3 Months Family History Medical [...] drink = 0.6 oz pur e alcohol) [facility] Utilities Answer Date Recorded In the past 12 months has [employer], gas, oil, or water [employer] threatened to shut off services in your home? Patient declined 03/05/2024 Social Connection and Isolation Panel [NHANES] A nswer Date Recorded In a typical week, how many times do you talk on the phone with family, friends, or neighbors? Patient declined 03/05/2024 How often do you get togethe r with friends or relatives? Patient declined 03/05/2024 How often do you attend gnosticism or sikhism serv ices? Patient declined 03/05/2024 Do you belong to any clubs o r organizations such as gnosticism groups, unions, fraternal or athletic groups, or [...] Total Score - Questions 1-9 7 04/2024 [facility] - Occupational Stress Questionnaire Answer Date Recorded [...] any time in the past 12 m [facility], were you homeless or living in a snf (including now)? 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 Not on file Last Filed Vital Signs Vital Sign Reading Time Taken Comments Blood Pressure 100/70 04/21/2024 4:00 PM FORM PRESS OPERATOR Pulse 79 04/21/2024 4:00 PM FORM PRESS OPERATOR Temperature 36.9 C (98.4 F) 04/21/2024 4:00 PM FORM PRESS OPERATOR Respiratory Rate 14 04/21/2024 4:00 PM FORM PRESS OPERATOR Oxygen Saturation 95% 04/21/2024 4:00 PM FORM PRESS OPERATOR Inhaled Oxygen Concentration - - Weight 56.4 kg (124 lb 4 oz) 04/21/2024 10:25 AM FORM PRESS OPERATOR Height 154.9 cm (5' 1 ) 04/21/2024 10:25 AM FORM PRESS OPERATOR Body Mass Index 23.48 04/21/2024 10:25 AM FORM PRESS OPERATOR Plan of Treatment Health Maintenance Due Date Last Done Comments Mammogram 1978 TdaP Immunization 1978 Hepatitis B Immunization (1 of 3 - 19+ 3-dose series) 1997 Discussion re Starting/Frequency of Mammograms 2018 SARS-COV-2 Immunization ( season) 2023 01/27/2023 Influenza Immunization (Seas on Ended) 2024 Colonoscopy 08/15/2027 08/14/2017, 12/18/2014 Colorectal Cancer Screening 08/15/2027 Respiratory Syncytial Virus (RSV) Immunization (Adult) (1 - 1-dose 75+ series) 2053 08/14/2017, 12/18/2014 Hepatitis C Virus (HCV) Screening Completed 03/01/2024 Human Papillomavirus (HPV) Immunization Aged Out No longer eligible b ased on patient's age to complete this topic Meningococcal Immunization (ACWY) Aged Out No longer eligible b ased on patient's age to complete this topic Pneumococcal Immunization Combined Aged Out No longer eligible b ased on patient's age to complete this topic Rotavirus Immunization Aged Out No lo nger eligible based on patient's age to complete this topic Medical Devices Explanted Type Area Medical Scientific Liaison Device Identifier Shelf Expiration Date Model / Serial / Lot Stent Ureteral 5fr 2.1fr 24cm 2 Pigtail Curve 2 Durometer Taper Tip Loprfl Graduated Polaris Ultra - [id number] Implanted:Qty : 1 on 03/05/2024 by Niranjan Valdez MD at [facility] Explanted:Qty : 1 on 04/21/2024 at [facility] IMPLANT Left: [employer] 07/20/2026 [id number] / [id number] / [id number] Procedures Procedure Name Priority Date/Time Associated Diagnosis Comments POCT GLUCOSE Routine 04/21/2024 2:15 PM FORM PRESS OPERATOR PATHOLOGY SURGICAL Routine 04/21/2024 12:55 PM FORM PRESS OPERATOR LMA Routine 04/21/2024 12:17 PM FORM PRESS OPERATOR CYSTO STENT REMOVAL (SINGLE/BILATERAL) 04/21/2024 11:47 AM FORM PRESS OPERATOR LEFT KIDNEY STONE Special Needs 5'1 126LB HX TIAs X2, ANXIETY AND DEPRESSION, HISTORY OF DRUG ABUSE (NO USE SINCE 2010 PER HER REPORT) NO PREG TEST NEEDED (HAD HYSTERECTOMY) CYSTOURETHROSCOPY 04/21/2024 11:47 AM FORM PRESS OPERATOR LEFT KIDNEY STONE Special Needs 5'1 126LB HX TIAs X2, ANXIETY AND DEPRESSION, HISTORY OF DRUG ABUSE (NO USE SINCE 2010 PER HER REPORT) NO PREG TEST NEEDED (HAD HYSTERECTOMY) FRAGMENT KIDNEY STONE/ ESWL 04/21/2024 11:47 AM FORM PRESS OPERATOR LEFT KIDNEY STONE Special Needs 5'1 126LB HX TIAs X2, ANXIETY AND DEPRESSION, HISTORY OF DRUG ABUSE (NO USE SINCE 2010 PER HER REPORT) NO PREG TEST NEEDED (HAD HYSTERECTOMY) CULTURE, URINE Routine 04/20/2024 2:48 PM FORM PRESS OPERATOR UTI symptoms HEPATITIS C ANTIBODY Routine 03/01/2024 11:53 AM FORM PRESS OPERATOR High risk sexual behavior, unspecified type HM COLONOSCOPY Routine 08/14/2017 from Last 3 Months or Most Recently Relevant to Health Maintenance Results * POCT Glucose (04/21/2024 2:15 PM FORM PRESS OPERATOR) GLUCOSE,BEDSIDE POCT 96 70 - 99 mg/dL 04/21/2024 2:26 PM FORM PRESS OPERATOR [facility] Blood 04/21/2024 2:15 PM FORM PRESS OPERATOR 04/21/2024 2:26 PM FORM PRESS OPERATOR us None Provider POINT OF CARE TESTING Final Resu lt [facility] [address] [place] [address] * Pathology Surgical (04/21/2024 12:55 PM FORM PRESS OPERATOR) Case Report Surgical Pathology Report Case: [id number] Authorizing Provider: Niranjan Valdez MD Collected: 04/21/2024 12:55 PM Ordering Location: [facility] Received: 04/22/2024 08:36 AM [facility] Main OR Pathologist: Rohit Mendiola MD PhD Specimen: Foreign Body, LEFT URETERAL STENT 04/25/2024 8:17 AM FORM PRESS OPERATOR [facility] FINAL DIAGNOSIS Left ureteral stent, removal: - As described grossly. 04/25/2024 8:17 AM FORM PRESS OPERATOR [facility] 0817 FORM PRESS OPERATOR Pre-Operative Diagnosis LEFT KIDNEY STONE 04/25/2024 8:17 AM FORM PRESS OPERATOR [facility] Gross Description A. LEFT URETERAL STENT Specimen presents in a single sterile collection cup labeled with the patient's name, Parisa Gee, and designated as left ureteral stent. The specimen consists of a light trivedi to light blue plastic tubing measuring 36 cm in length and 0.2 cm in diameter. This is for gross dictation only. KS/sb 04/25/2024 8:17 AM FORM PRESS OPERATOR [facility] Other FOREIGN BODY SUBMITTED SPECIMEN / Unknown 04/21/2024 12:55 PM FORM PRESS OPERATOR 04/22/2024 8:36 AM FORM PRESS OPERATOR us Niranjan Valdez MD PATHOLOGY/CYTOLOGY ORDERABLES Fi nal Result [facility] [place] [address] * LMA (04/21/2024 12:17 PM FORM PRESS OPERATOR) Narrative Diomedes Adame APRN, CRNA - 04/21/2024 12:17 PM FORM PRESS OPERATOR Diomedes Adame APRN, CRNA 04/21/2024 12:17 PM LMA Staffing Performed: resident/CHUTE LOADER Resident/CHUTE LOADER: Diomedes Adame APRN, CRNA Performed by: Diomedes Adame APRN, CRNA Authorized by: Diomedes Adame APRN, CRNA Airway Details Overall Difficulty: Easy Preoxygenated: Yes Ease of Mask Ventilation: Easy LMA Type: Disposable LMA Size: 3 Adequate seal established: Yes LMA placement confirmed by: bilateral breath sounds, CO2 detection Atraumatic LMA Placement us Diomedes Adame APRN, CRNA ANESTHESIA ORDERAB LES Final Result * CULTURE, URINE (04/20/2024 2:48 PM FORM PRESS OPERATOR) CULTURE RESULTS Mixed Growth of One or More Distal Urethral Contaminants 04/21/2024 3:53 PM FORM PRESS OPERATOR [facility] Culture URINE SPECIMEN OBTAINED BY CLEAN CATCH PROCEDURE / Unknown Non-Phlebotomy Collection / Unknown 04/20/2024 2:48 PM FORM PRESS OPERATOR 04/20/2024 4:29 PM FORM PRESS OPERATOR us Niranjan Valdez MD MICROBIOLOGY - GENERAL ORDERABLE S Final Result Performing Organization Address [facility] Co de Phone Number [facility] [address] [place] [address], [place] * HEPATITIS C ANTIBODY (03/01/2024 11:53 AM FORM PRESS OPERATOR) hepatitis C antibody 0.08 <1 S/CO 03/01/2024 10:58 PM FORM PRESS OPERATOR [facility] Comment: Signal/Cutoff ratio < 0.79 is Nondetected Signal/Cutoff ratio 0.80-0.99 is Grayzone Signal/Cutoff ratio > 0.99 is Detected Supplemental assays are recommended if signal/cutoff ratio is >/=1.00. Signal/cutoff ratio result >/= 5.00 is 97% predictive of positivity for recombinant immunoblot assay (RIBA) and will be reported to the [place] Department [facility] Public [facility] as required. Blood Venipuncture / Unknown 03/01/2024 11:53 AM FORM PRESS OPERATOR 03/01/2024 11:53 AM FORM PRESS OPERATOR us Aubree Alvarez APRN, SENIOR UI DESIGNER CHEMISTRY ORDERABLES Final Result Performing Organization Address [facility] Co de Phone Number [facility] [address] [place] [address], [place] * HM COLONOSCOPY (08/14/2017) David Liz MD PROCEDURE/MINOR SURGICAL ORDER WERNER [...] all measures to stabilize patient. Care Teams Language Interpreter Relationship Specialty Start Date End Date Aubree Alvarez, GANG MINER, SENIOR UI DESIGNER [address] [place] [address] PCP - General Certified Nurse Practitioner 03/01/24 Niranjan Valdez MD [address] [facility] [address] [place] [address] Consulting Physician Urology 03/14/24
--- OUTSIDE RECORDS SUMMARY | 2024-07-02 16:33 | XMS_ITS | Clinical Summary ---
Author Organization [facility] Address [facility] [place] [address] Care Team Providers Care Stakeholder Manager Name Role Phone None, Provider MD Primary [...] Comments Blood Pressure 106/85 02/17/2019 6:51 PM BANKING ANALYST Pulse 91 02/17/2019 6:51 PM BANKING ANALYST Temperature 37.1 C (98.7 F) 02/17/2019 6:51 PM BANKING ANALYST Respiratory Rate 19 02/17/2019 6:51 PM BANKING ANALYST Oxygen Saturation 98% 02/17/2019 6:51 PM BANKING ANALYST Inhaled Oxygen Concentration - - Weight 61.9 kg (136 lb 7.4 oz) 02/17/2019 6:55 P M BANKING ANALYST Height 154.9 cm (5' 1 ) 02/17/2019 6:51 PM BANKING ANALYST Body Mass Index 25.78 02/17/2019 6:51 PM BANKING ANALYST Plan of Treatment Health Maintenance Due Date [...] Vaccine ( - 2023-2 5 season) 2023 Meningococcal B Vaccine Aged Out No l onger eligible based on patient's age to complete this topic Meningococcal Vaccine Aged Out No merary ngoc eligible based on patient's age to complete this topic Pneumococcal Vaccine: Pediat rics (0 to 5 Years) and At-Risk Patients (6 to 49 Years) Aged Out No longer eligible b ased on patient's age to complete this topic RSV Immunizations Under 20 Months Aged Out No longer eligible based on patient's age to complete this topic Insurance MEDICAID Care Teams Stakeholder Manager Relationship Specialty Start Date End Date None, Provider, PCP - General 02/17/19
--- OUTSIDE RECORDS SUMMARY | 2024-07-02 16:33 | XMS_ITS | CONTINUITY OF CARE DOCUMENT ---
Author Name lisa gonzalez Address Unknown Organization [facility] Address [address] [place] [address] [address] [place] [address] Phone [phone] Care Team Providers Care Production Supv Name Role Phone Allie SERRA, Jerry Unavailable [phone] INSURANCE PROVIDERS Payer name Policy type / Coverage type [place] [employer] party [employer] HE[employer] AND FAMILY [employer] Medicaid 1 [id number]
--- OUTSIDE RECORDS SUMMARY | 2024-07-02 16:34 | XMS_ITS | CONTINUITY OF CARE DOCUMENT ---
Author Name lisa gonzalez Address Unknown Organization [facility] Address [id number] [place] [address] [address] [place] [address] Phone [phone] Care Team Providers Care Trimming Assembler Name Role Phone Allie SERRA, Jerry Unavailable [phone] INSURANCE PROVIDERS Payer name Policy type / Coverage type [place] [employer] party ID HEALTHCARE AND FAMILY SERVICES Medicaid 1 [id number]
--- OUTSIDE RECORDS SUMMARY | 2024-07-02 16:34 | XMS_ITS | Patient Health Record ---
Author Organization [facility] Address [address] [place] [address] Care Team Providers Care Horizontal Boring Mill Set Up Operator Name Role Phone Farzaneh Padron Primary Care Provider [phone] Hanny Monet Unavailable [phone] Lynette Dahl Unavailable [phone] Eve Hunter Unavailable [phone] Allergies Allergen (clinical drug ingredient) Drug/Non Drug [...] drugs Dilaudid in 2010 OTC denies location- [place] Current home location- [place] though chart states [place] Who lives at home? 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 She reports that she is starting to do more things, like being outside and crafts. Social Activities-- Client reports that she has a good support system, but that she doesn't have any friends due to her trust issues. Spiritual Affiliation- Believes in god, does not go to anabaptism Probation/Legal trouble/?- Client reports having three DUI's, but hopes to get her license back in the near future. Client reports making poor decisions involving drugs. LEGAL: Client is currently on parole. Recently [facility]. Client has a previous possession charge and 3 DUI's. Client was incarcerated at [facility] until 05/14/2020. Felony. PARENTING- Client reports that her substance use affected her role as a parent. 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 She reports that she is starting to do more things, like being outside and crafts. Social Activities-- Client reports that she has a good support system, but that she doesn't have any friends due to her trust issues. Spiritual Affiliation- Believes in god, does not go to anabaptism Probation/Legal trouble/?- Client reports having three DUI's, but hopes to get her license back in the near future. Client reports making poor decisions involving drugs. LEGAL: Client is currently on parole. Recently [facility] from [facility]. Client has a previous possession charge and 3 DUI's. Client was incarcerated at [facility] until 05/14/2020. Felony. PARENTING- Client reports that her substance use affected her role as a parent. 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 She reports that she is starting to do more things, like being outside and crafts. Social Activities-- Client reports that she has a good support system, but that she doesn't have any friends due to her trust issues. Spiritual Affiliation- Believes in god, does not go to anabaptism Probation/Legal trouble/?- Client reports having three DUI's, but hopes to get her license back in the near future. Client reports making poor decisions involving drugs. LEGAL: Client is currently on parole. Recently [facility]. Client has a previous possession charge and 3 DUI's. Client was incarcerated at [facility] until 05/14/2020. Felony. PARENTING- Client reports that her substance use affected her role as a parent. 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 She reports that she is starting to do more things, like being outside and crafts. Social Activities-- Client reports that she has a good support system, but that she doesn't have any friends due to her trust issues. Spiritual Affiliation- Believes in god, does not go to anabaptism Probation/Legal trouble/?- Client reports having three DUI's, but hopes to get her license back in the near future. Client reports making poor decisions involving drugs. LEGAL: Client is currently on parole. Recently [facility] Client has a previous possession charge and 3 DUI's. Client was incarcerated at [facility] until 05/14/2020. Felony. 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 She reports that she is starting to do more things, like being outside and crafts. Social Activities-- Client reports that she has a good support system, but that she doesn't have any friends due to her trust issues. Spiritual Affiliation- Believes in god, does not go to anabaptism Probation/Legal trouble/?- Client reports having three DUI's, but hopes to get her license back in the near future. Client reports making poor decisions involving drugs. LEGAL: Client is currently on parole. Recently [facility] Client has a previous possession charge and 3 DUI's. Client was incarcerated at [facility] until 05/14/2020. Felony. PARENTING- Client reports that her substance use affected her role as a parent. 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 She reports that she is starting to do more things, like being outside and crafts. Social Activities-- Client reports that she has a good support system, but that she doesn't have any friends due to her trust issues. Spiritual Affiliation- Believes in god, does not go to anabaptism Probation/Legal trouble/?- Client reports having three DUI's, but hopes to get her license back in the near future. Client reports making poor decisions involving drugs. LEGAL: Client is currently on parole. [facility]. Client has a previous possession charge and 3 DUI's. Client was incarcerated at [facility] until 05/14/2020. Felony. PARENTING- Client reports that her substance use affected her role as a parent. Problems Problem Type SNOMED Code ICD Code Onset Dates Problem Status W/U Status Risk Notes Problem Posttraumatic stress disorder (67008549) Post traumatic stress disorder (F43.10) Active confirmed Problem Generalized anxiety disorder (32320699) PENNY (generalized anxiety disorder) (F41.1) Active confirmed Problem Acute stress disorder (08523791) Stress reaction (F43.0) Active confirmed Vital Signs Heart Rate 78 /min 09/15/2023 Respiratory Rate 16 /min 09/15/2023 Blood pressure diastolic 72 mm Hg 09/15/2023 Oximetry 98 % 09/15/2023 Height 61.00 in 09/15/2023 Blood pressure systolic 94 mm Hg 09/15/2023 Weight 131.00 lbs 09/15/2023 BMI 24.75 kg/m2 09/15/2023 Encounters Encounter Location Date Provider Diagnosis [facility] [address] [place] [address] 09/15/2023 Eve Hunter Adult general medical exam Z00.00 [facility] [place] [place] [address] 09/15/2023 Lynette Dahl [place] [address] [place] [address] 10/09/2023 Lynette Dahl Assessments Encounter Date Diagnosis (ICD Code) Assessment Notes Treatment Notes Treatment Clinical Notes Section Notes 09/15/2023 Adult general medical exam (ICD-10 - Z00.00) 09/15/2023 Other Continue treatment as recommended by [facility] staff. Encouraged patient to obtain routine medical care with patient's own primary care provider or establish as a patient at [facility] if no current primary care provider. Continue treatment as recommended by [facility] staff. Encouraged patient to obtain routine medical care with patient's own primary care provider or establish as a patient at [facility] if no current primary care provider. Continue treatment as recommended by [facility] staff. Encouraged patient to obtain routine medical care with patient's own primary care provider or establish as a patient at [facility] if no current primary care provider. 09/15/2023 Other Provided case management services to address social determinants of health needs and reduce barriers to health care services. Plan Of Treatment No Information Insurance Providers Payer Name Payer Address Payer Phone Subscriber Number Group Number Insured Name Patient Relationship to Insured Coverage Start Date Coverage End Date MEDICAID [address] [place] [address] [id number] Parisa Gee Self - patient is the insured 1 1 [facility] [address] [address] [id number] AdriannaParisa hollis Self - patient is the insured [address] [place] [address] [id number] Parisa Gee Self - patient is the insured 1 Medical (General) History Medical History History ICD Code heart palpitation constipation irritable bowel syndrome Surgical History Surgery Date(Month/Year) appendectomy cholecystectomy c section PARTIAL HYSTERECTOMY tonsilectomy
--- OUTSIDE RECORDS SUMMARY | 2024-07-02 16:34 | XMS_ITS | Continuity of Care Document ---
Author Organization [facility] Address [address] [place] [address] Phone Care Team Providers Care Hospice Care Transitions Coordinator Name Role Phone Moira ESTUARDOEarline Unavailable Unavailable [...] Diagnoses Date Provider Providers Copied on Encounter [facility], [address] [place] [address], [facility], [phone] [place] No Information 9 Moirataryn Patten. [address] [place] [address], . tel:[phone] OFFICE/OUTPA TIENT VISIT, EST [facility], [address] [place] [address], [facility], tel:[phone] [place] MED REFILLS (chief complaint) Other depressionPalpit ations 9 Stef Crews. [address] [place] [address], [place]. tel:[phone] Family History Family Member Type Diagnosis Age At Onset No Information Payers Payer name Insurance type Covered libertarian ID Authoriza tion(s) No Information Social History Type Description Quantity Date Captured Comments Alcohol Use Details Unknown Caffeine Use Details Unknown Tobacco Use Status Smoking Status No Information Sex Female Chief Complaint And Reason For Visit No Information Reason For Referral Reason For Referral No Information History Of Present Illness Encounter Date Complaint History Of Prese nt Illness MED REFILLS Pt presents in [facility] for medication refills. Pt states she also takes hydroxyzine as well. Pt states she does not know what dose.I received pt's medication from [email or web address] in [place]. They only listed bupropion XL 150mg and 300mg and Metoprolol tartate.Also called [facility] pharmacy in [place]. They did fill hydroxyzine for pt, but in 01/2018 with no refills.Pt's PCP is Dr Martins at [facility] in [place]. Functional Status Date Functional Assessmen t No [...]
--- OUTSIDE RECORDS SUMMARY | 2024-07-02 16:34 | XMS_ITS | Referral Summary ---
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 Gender Identity Not on file Sexual Orientation Not on file Last Filed Vital Signs Vital Sign Reading Time Taken Comments Blood Pressure 105/70 03/04/2024 12:47 PM INTERIOR WALL ASSEMBLER Pulse 82 03/04/2024 12:47 PM INTERIOR WALL ASSEMBLER Temperature 36.6 C (97.8 F) 03/04/2024 12:47 PM INTERIOR WALL ASSEMBLER Respiratory Rate 16 03/04/2024 12:47 PM INTERIOR WALL ASSEMBLER Oxygen Saturation 97% 03/04/2024 12:47 PM INTERIOR WALL ASSEMBLER Inhaled Oxygen Concentration - - Weight 58.1 kg (128 lb) 03/04/2024 12:47 PM INTERIOR WALL ASSEMBLER Height 154.9 cm (5' 1 ) 03/04/2024 12:47 PM INTERIOR WALL ASSEMBLER Body Mass Index 24.19 03/04/2024 12:47 PM INTERIOR WALL ASSEMBLER Plan of Treatment Not on file Procedures Procedure Name Priority Date/Time Associated Diagnosis Comments COLONOSCOPY 08/14/2017 10:18 AM CDT from Last 3 Months or Most Recently Relevant to Health Maintenance Results * COLONOSCOPY (08/14/2017 10:18 AM CDT) Anatomical Region Laterality Modality Other Narrative Procedure Note David Liz MD - 08/14/2017 10:18 AM CDT [facility] Patient Name: Parisa Padron Procedure Date: 08/14/2017 10:18 AM Date of : 1980 Admit Type: Outpatient Age: 37 Gender: Female Attending MD: David Liz M.D. Room: [facility] ENDOSCOPY ROOM 1 Note Status: Finalized Procedure: [...] scope was passed under direct vision.The Colonoscope [id number] was introducedthrough the anus and advanced to [...] 10:18 AM Procedure Code(s): --- Professional --- 16637, Colonoscopy, flexible; diagnostic, including collection of specimen(s) by brushing or washing, when performed (separateprocedure) Diagnosis Code(s): --- Professional --- R19.7, Diarrhea, unspecified K52.9, Noninfective gastroenteritis and colitis, unspecified R10.84, Generalized abdominal pain K64.9, Unspecified hemorrhoids CPT copyright 2017 [employer] [place] [employer]. All rights reserved. The codes documented in this report are preliminary and upon svp reviewmay be revised to meet current compliance requirements. Recognized by the [place] [employer] for promoting quality in endoscopy David Liz MD ENDOSCOPY PROCEDURES Final Re sult from Last 3 Months or Most Recently Relevant to Health Maintenance Insurance IDPA IDPA PLAN Advance Directives For more information, please contact: [phone] * Full Code (Latest Code Status on File) Date Activated Date Inactivated Comments 08/14/2017 9:43 AM 08/14/2017 1:47 PM Care Teams Applied Exercise Physiologist Relationship Specialty Start Date End Date Salomon Jones MD PCP - General Internal Medicine 12/29/21
--- OUTSIDE RECORDS SUMMARY | 2024-07-02 16:34 | XMS_ITS | Clinical Summary ---
Author Organization [facility] Address [address] [place] [address] Care Team Providers Care Hoop Coiling Machine Operator Name Role Phone Salomon Jones MD Primary Care Provider [phone] Allergies Active Allergy Reactions Criticality Noted Date [...] (07/23/2017): Added automatically from request for surgery [id number] History of colon polyps 07/23/2017 Overview (07/23/2017): Added automatically from request for surgery [id number] Palpitations 08/08/2014 Overview (06/05/2016): Palpitations Depression 08/08/2014 Overview (06/05/2016): Depression Cyclic vomiting syndrome 07/19/2009 Supraventricular tachycardia 07/19/2009 Surgical History Surgery Date Site/Laterality Comments HEMORRHOID [...] on file Legal Sex Female 12:38 AM [employer] Gender Identity Not on file Sexual Orientation Not on file Obstetrics History Last Filed Vital Signs Vital Sign Reading Time Taken Comments Blood Pressure 105/70 03/04/2024 12:47 PM [employer] [place] Pulse 82 03/04/2024 12:47 PM [employer] [place] [place] Temperature 36.6 C (97.8 F) 03/04/2024 12:47 PM [employer] [place] [place] Respiratory Rate 16 03/04/2024 12:47 PM [employer] [place] [place] Oxygen Saturation 97% 03/04/2024 12:47 PM [employer] Inhaled Oxygen Concentration - - Weight 58.1 kg (128 lb) 03/04/2024 12:47 PM [employer] [place] Height 154.9 cm (5' 1 ) 03/04/2024 12:47 PM [employer] [place] [place] Body Mass Index 24.19 03/04/2024 12:47 PM [employer] [place] [place] Plan of Treatment Health Maintenance Due Date [...] Liz MD - 08/14/2017 10:18 AM CDT [facility] Patient Name: Parisa Padron Procedure Date: 08/14/2017 10:18 AM Date of : 1980 Admit Type: Outpatient Age: 37 Gender: Female Attending MD: David Liz M.D. Room: [facility] ENDOSCOPY ROOM 1 Note Status: Finalized [...] scope was passed under direct vision.The Colonoscope [id number] was introducedthrough the anus and advanced to [...] 10:18 AM Procedure Code(s): --- Professional --- 00593, Colonoscopy, flexible; diagnostic, including collection of specimen(s) by brushing or washing, when performed (separateprocedure) Diagnosis Code(s): --- Professional --- R19.7, Diarrhea, unspecified K52.9, Noninfective gastroenteritis and colitis, unspecified R10.84, Generalized abdominal pain K64.9, Unspecified hemorrhoids CPT copyright 2017 [employer]. All rights reserved. The codes documented in this report are preliminary and upon roughing mill operator reviewmay be revised to meet current compliance requirements. Recognized by the [employer] for promoting quality in endoscopy David Liz MD ENDOSCOPY PROCEDURES Final Re sult from Last 3 Months or Most Recently Relevant to Health Maintenance Insurance [employer] PAVITHRA LIZARRAGA [facility] Advance Directives For more information, please contact: [phone] * Full Code (Latest Code Status on File) Date Activated Date Inactivated Comments 08/14/2017 9:43 AM 08/14/2017 1:47 PM Care Teams Hoop Coiling Machine Operator Relationship Specialty Start Date End Date Salomon Jones MD PCP - General Internal Medicine 12/29/21
--- OUTSIDE RECORDS SUMMARY | 2024-07-02 16:34 | XMS_ITS | Continuity of Care Document ---
Author Organization [facility] Address [address] [id number] [address] Phone Care Team Providers Care Pantograph Watcher Name Role Phone Linda Ng Unavailable Unavailable [...] 15:44:56 NEGATIVE mg/dL Negative Final Urine Specific Steward 4 15:44:56 1.020 1.000-1.030 Final Urine Blood [...] Providers Copied on Encounter OFFICE/OUTPA TIENT VISIT [facility], [id number], [place], [address], [place] tel:[phone] Family Medicine F1 Express Care Follow-up (chief complaint) Acute coughLeft flank painHistory of kidney stonesViral respiratory illness Apr- 4 Areli Mckeon. [address], [place], [id number], [place]. tel:[phone] Referring Provider: Linda Singleton, [address] [place], [address] . tel:[phone] OFFICE/OUTPA TIENT VISIT [facility], [id number] [id number], [address], [place] tel:[phone] Medical Express Care congestion, diarrhea, chills. (chief complaint) Acute cough Apr-0 4 Frandy Ma. [address], [place], [address], [place]. tel:[phone] Referring Provider: Francesca Wise, [address] [place], [address] . tel:[phone] OFFICE/OUTPA TIENT VISIT [facility], [id number]- [place], [place], [id number], [place] tel:[phone] Medical Express Care cough ,congection (chief complaint) Acute coughNon-recurre nt acute suppurative otitis media of right ear without spontaneous rupture of tympanic membrane 4 Frandy Ma. [address], [place], [address], [place]. tel:[phone] Referring Provider: Francesca Wise, [address] [place], [address] . tel:[phone] OFFICE/OUTPA TIENT VISIT [facility], [id number], [address], [place] tel:[phone] Family Medicine F1 hematocrit is low (chief complaint)w ants hormones levels checked. (chief complaint)n europathy (chief complaint)j oint pain (chief complaint) Vitamin B12 deficiency anemia, unspecifiedVitam in D deficiencyFatigu ePain in jointIron deficiency anemia, unspecified 4 Sampson Lira. [address], [place], [address], [place]. tel:[phone] Referring Provider: Soraya Reyes, [address] [place], [address] . tel:[phone] [facility], [address] [id number], [address], [place] tel:[phone] Family Medicine F1 Low incomeInsufficie nt Social Insurance or Welfare Support 4 Coordinator Eagle. [address], [place], [address], [place]. tel:[phone] Referring Provider: Eagle ulloa, [address] [place], [address] . tel:[phone] [facility], [id number], [address], [place] tel:[phone] Family Medicine F1 Vitamin D deficiency, unspecifiedEncnt r screen mammogram for malignant neoplasm of breastEncounter for screening for cardiovascular disordersIron deficiency anemia, unspecifiedVitam in B12 deficiency anemia, unspecifiedOther fatigue 4 Sampson Lira. [address], [place], [address], [place]. tel:[phone] Referring Provider: Soraya Reyes, [address] [place], [address] . tel:[phone] OFFICE/OUTPA TIENT VISIT EST [facility], [address] [id number] [place], [place], [address], [place] tel:[phone] Family Medicine F1 establish care (chief complaint)E SA letter (chief complaint) Encounter for screening mammogram for Ca of breastEncounter for screening for cardiovascular disordersIron deficiency anemiaFatigueVit rubalcava B12 deficiency anemia, unspecifiedVitam in D deficiencyBody mass index (BMI) 27.0-27.9, adult 4 Sampson Lira. [address], [place], [address], [place]. tel:[phone] Referring Provider: Soraya Reyes, [address] [place], [address] . tel:[phone] [facility], [address] 7854701KHNorth [place], [place], [address], [place] tel:[phone] [facility] Express Care med refill (chief complaint) Cardiac arrhythmia, unspecified cardiac arrhythmia type 4 Marlena Millan. [address], [place], [address], [place]. tel:[phone] Referring Provider: Monty Mendiola, [address] [place], [address] . tel:[phone] Family History Family Member Type Diagnosis Age At Onset No Information Payers Payer name Insurance type Covered republican ID Maria C cabezas(flores [place] Medicaid [id number] Social History Type Description Quantity Date Captured [...] For Visit From encounter dated '06/11/2023 15:00'. [facility] Follow-up (chief complaint). Description: Has been tested at [facility] for Covid SARS. Pt has had shortness of breath and other flu symptoms since Thursday.. Pt has no energy and feels lethargic. Was given an antibiotic at [facility]. HHMs. Gee presents to my office today as a fo llow-up from recent [facility] visits on both 06/07 and 06/08. Patient tested negative for SARs andInfluenza on 06/07 and again tested negative for SARs, Influenza, and RSV on 06/08. Recall patient was also started on oral Cefdinir on 06/07 per [facility] for treatment of suspected ear infection. Patient reports symptoms of low energy, lethargy, productive cough, and diarrhea since Monday 06/05.She reports that her dog has now developed similar symptoms at home. She denies N/V currently. She reports feeling fevers coming on. Patient does report loss of smell and taste. Patient was seen at [facility] on 06/06, [facility] on 06/07, and again on [facility] on 06/08. Reason For Referral Reason For Referral No Information Plan Of Treatment Date Type Action Status Goal Dietary manageme nt education, guidance, and counseling completed Goal Dietary manageme nt education, guidance, and counseling completed Referral Ordered: Medicaid Expansion (related to Low income) ordered Referral Ordered: Referrals: Location: [facility] ordered Referral Ordered: Referrals: mammogram ordered Future Order: Radiology Order Ab domen - 1 View ([id number]), Ordered on: Ordered History Of Present Illness Encounter Date Complaint History Of Prese nt Illness [facility] Care Follow-up Has been tested at [facility] for Covid SARS. Pt has had shortness of breath and other flu symptoms since Thursday.. Pt has no energy and feels lethargic. Was given an antibiotic at [facility]. HHMs. Gee presents to my office today as a follow-up from recent [facility] visits on both 06/07 and 06/08. Patient tested negative for SARs and Influenza on 06/07 and again tested negative for SARs, Influenza, and RSV on 06/08. Recall patient was also started on oral Cefdinir on 06/07 per [facility] for treatment of suspected ear infection. Patient reports symptoms of low energy, lethargy, productive cough, and diarrhea since Monday 06/05. She reports that her dog has now developed similar symptoms at home. She denies N/V currently. She reports feeling fevers coming on. Patient does report loss of smell and taste. Patient was seen at [facility] on 06/06, [facility] on 06/07, and again on [facility] on 06/08. congestion, diarrhea, chills. Fo urth [...] clinic yesterday, she developed diarrhea. She did case picker her Cefdinir and started it. States that [...] to establish care. She was seen in [facility] on 03/03 for refill on her metoprolol. [...] out. She states that she lives in [place] and is needing a emotional support animal. [...] does not have to. She went to [facility] a few days ago and states that [...] CARIDAD letter med refill Needing to [facility] and get med refill on metoprolol 50mg BID. [facility]pitations[facility]. Functional Status Date [...] PRN for fevers or body aches per scientific investigator's instructions. - Patient to follow-up with PCP [...] with results Related to Vitamin D deficiency Giving encouragement to exercise Related to Body mass index [BMI] 27.0-27.9, adult Dietary management e ducation, guidance, and counseling Related to Body mass index [BMI] 27.0-27.9, adult Dietary management e ducation, guidance, and counseling Related to Iron deficiency anemia I call pharmacy to v erify meds [...]
== END 2024-07-02 13:32 | disposition home or self-care (01) ==
DX: N39.0 Urinary tract infection, site not specified (principal); Z87.442 Personal history of urinary calculi; Z76.0 Encounter for issue of repeat prescription
CPT/HCPCS: 81003; 87086; 87186; 99213; G0463

== ENCOUNTER 2024-09-26 15:14 | Emergency (ER) | payer BC, SELFPAY ==
--- OUTSIDE RECORDS SUMMARY | 2024-09-26 15:17 | XMS_ITS | Encounter Summary ---
Author Organization [facility] Address [address] [place] [address] Phone Care Team Providers Care Brain Surgeon Name Role Phone Aubree Alvarez APRN, GAS OPERATIONS SUPERINTENDENT Primary Care Provider [phone] Niranjan Valdez MD Unavailable Pamella Sorto RISK MANAGEMENT DIRECTOR Unavailable Unavailab le Reason for Visit * Reason Onset Date Comments Rash 08/03/2024 Encounter Details Date Type Department Care Team (Late st Contact Info) Description 08/03/2024 Nurse Triage [facility] [address] [place] [address] Aubree Alvarez APRN, GAS OPERATIONS SUPERINTENDENT [address] [place] [address] Rash Social History Tobacco Use Types Packs/Day Years Used Date Smoking Tobacco: Former Cigarettes 0 07/01/2015 - 06/30/2016 Smokeless Tobacco: Never Alcohol Use Standard Drinks/Week Comments Not Currently 0 (1 standard drink = 0.6 oz pur e alcohol) [facility] Utilities Answer Date Recorded In the past 12 months has [employer] electric, gas, oil, or water company threatened to shut off services in your home? Patient declined 03/05/2024 Social Connection and Isolation Panel Answer Date Recorded In a typical week, how many times do you talk on the phone with family, friends, or neighbors? Patient declined 03/05/2024 How often do you get togethe r with friends or relatives? Patient declined 03/05/2024 How often do you attend restorationism or episcopalian serv ices? Patient declined 03/05/2024 Do you belong to any clubs o r organizations such as restorationism groups, unions, fraternal or athletic groups, or [...] Date Recorded Total Score - Questions 1-9 16 05/0 07/2024 [facility] of Occupat ional [facility] - Occupational Stress Questionnaire Answer Date Recorded [...] any time in the past 12 m [facility], were you homeless or living in a prison (including now)? 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 She was not happy about having to be seen and states I swear doctors now a days are money hungry this is ridiculous, I have had this reaction for 40 years. Explained to patient best practice is for the provider to evaluate the rash to ensure proper treatment plan and medications are given. No more questions for this RN Appointment made today with PCP * Telephone Encounter - Aubree Alvarez APRN, CNP - 08/04/2024 8:11 AM CDT She should be seen. * Telephone Encounter - Michelle Robles RN - 08/03/2024 2:11 PM CDT SITUATION: Poison iliana BACKGROUND: Patient contacting PCP office. ASSESSMENT: Symptom Description / Location: Poison icy rash present on bilateral hands Has rash present on genital area, face, and lips Denies shortness of breath, coughing, weakness RECOMMENDATION: Recommended to be seen today, patient does not have a vehicle to be seen anywhere. Caller understands recommendation, but refuses disposition and is requesting provider to order an oral steroid pack.Care advice provided per triage guideline. Caller verbalized understanding. Encounter routed to provider high priority to notify. - See care advice and disposition for Guideline. First positive answer recorded, all responses to prior questions were negative. If symptoms increase, change or if new symptoms develop, call your health care provider or call back. Recommendations were based on caller information and is not a diagnosis. Verified and reviewed all triage information with caller. Reason for Disposition Severe poison iliana, oak, or sumac reaction in the past, and face or genitals involved Protocols used: Poison Iliana - [place] - Sumac-A-[place] * Telephone Encounter - Luz Mg - 08/03/2024 2:10 PM CDT Symptom: Rash or Redness - Widespread Outcome: Schedule an appointment within 3 days Reason: Caller denied all higher acuity questions The caller rejected this outcome. Caller Denied: * Trouble breathing * Dark red or purple spots * Large blisters on skin * Trouble swallowing * Fever Poison Iliana very allergic documented in this encounter Plan of Treatment Not on file documented as of this encounter Visit Diagnoses Not on filedocumented in this encounter Additional Health Concerns Assessment Noted Time PHQ-9 Depression Total Score: 16 025 1:17 PM CDT documented as of this encounter Care Teams Brain Surgeon Relationship Specialty Start Date End Date Aubree Alvarez, SAND MILL GRINDER, GAS OPERATIONS SUPERINTENDENT [address] [address] PCP - General Certified Nurse Practitioner 03/01/24 Niranjan Valdez MD [address] [address] Consulting Physician Urology 03/14/24 Pamella Sorto, RISK MANAGEMENT DIRECTOR [place] Clerical Adjudicator Cold Roller 08/04/24 08/10/24 documented as of this encounter
--- OUTSIDE RECORDS SUMMARY | 2024-09-26 15:17 | XMS_ITS | Referral Summary ---
Author Organization [facility] Address [address] [place] [address] Care Team Providers Care Senior Informatica Developer Name Role Phone Salomon Jones MD Primary Care Provider [phone] Allergies Active Allergy Reactions Criticality Noted Date [...] (07/23/2017): Added automatically from request for surgery [id number] History of colon polyps 07/23/2017 Overview (07/23/2017): Added automatically from request for surgery [id number] Palpitations 08/08/2014 Overview (06/05/2016): Palpitations Depression 08/08/2014 [...] on file Legal Sex Female 12:38 AM CUSTOMER GREETER Gender Identity Not on file Sexual Orientation Not on file Last Filed Vital Signs Vital Sign Reading Time Taken Comments Blood Pressure 105/70 03/04/2024 12:47 PM CUSTOMER GREETER Pulse 82 03/04/2024 12:47 PM CUSTOMER GREETER Temperature 36.6 C (97.8 F) 03/04/2024 12:47 PM CUSTOMER GREETER Respiratory Rate 16 03/04/2024 12:47 PM CUSTOMER GREETER Oxygen Saturation 97% 03/04/2024 12:47 PM CUSTOMER GREETER Inhaled Oxygen Concentration - - Weight 58.1 kg (128 lb) 03/04/2024 12:47 PM CUSTOMER GREETER Height 154.9 cm (5' 1) 03/04/2024 12:47 PM CUSTOMER GREETER Body Mass Index 24.19 03/04/2024 12:47 PM CUSTOMER GREETER Plan of Treatment Not on file Procedures [...] Female Attending MD: David Liz M.D. Room: [facility] ROOM 1 Note Status: Finalized Procedure: [...] scope was passed under direct vision.The Colonoscope [id number] was introducedthrough the anus and advanced to [...] 10:18 AM Procedure Code(s): --- Professional --- 08305, Colonoscopy, flexible; diagnostic, including collection of specimen(s) by brushing or washing, when performed (separateprocedure) Diagnosis Code(s): --- Professional --- R19.7, Diarrhea, unspecified K52.9, Noninfective gastroenteritis and colitis, unspecified R10.84, Generalized abdominal pain K64.9, Unspecified hemorrhoids CPT copyright 2017 [employer]. All rights reserved. The codes documented in this report are preliminary and upon microbiology lab technician reviewmay be revised to meet current compliance requirements. Recognized by the [employer] for promoting quality in endoscopy David Liz MD ENDOSCOPY PROCEDURES Final Re sult from Last 3 Months or Most Recently Relevant to Health Maintenance Insurance IDPA IDPA PLAN Advance Directives For more information, please contact: [phone] * Full Code (Latest Code Status on File) Date Activated Date Inactivated Comments 08/14/2017 9:43 AM 08/14/2017 1:47 PM Care Teams Senior Informatica Developer Relationship Specialty Start Date End Date Salomon Jones MD PCP - General Internal Medicine 12/29/21
--- OUTSIDE RECORDS SUMMARY | 2024-09-26 15:17 | XMS_ITS ---
Author Organization [facility] Address [address] [place] [address] Care Team Providers Care Principal Technical Architect Name Role Phone Farzaneh Padron Primary Care Provider Hanny Monet REASON FOR VISIT On CRU- New Eval Encounters Encounter Location Date Provider Diagnosis [place] [address] [facility] [place] [place] [address] 09/16/2023 Farzaneh Padron Plan Of Treatment No Information Progress Notes * Mike GEEOB: [birth year] (44 yo F)Acc No.[id number]:09/16/2023 UNLOCKED PROGRESS NOTE Patient: Parisa BOYD Provider: Jason Padron DNP, PMJOHNP-BC, CASHIER OR CHECKER STOCK CLERK :1980 A ge:43 Y S ex:Female Date:09/16/2023 Address:[address] [place], [place] [address] Subjective: * Chief Complaints: * 1 . On CRU- New Eval. * Medical History: Objective: * Vitals: Assessment: Plan: * Treatment: * * Electronic signature of Neda Padron on 09/26/2024 at 03:17 PM CDT Sign off status: Pending * Provider: Jason Padron DNP, PMHNP-BC, CASHIER OR CHECKER STOCK CLERK Date: 09/16/2023 Generated for Printing/Faxing/eTransmitting on: 09/26/2024 03:17 PM CDT
--- OUTSIDE RECORDS SUMMARY | 2024-09-26 15:17 | XMS_ITS | Encounter Summary ---
Author Organization [facility] Address [address] [place] [address] Phone Care Team Providers Care Demolition Worker Name Role Phone Provider, None Primary Care Provider Unavailabl Aubree Cruz APRN, DIRECTOR OF FOOD AND NUTRITION Primary Care Provider [phone] Mana Hinson Unavailable Unavailable Niranjan Valdez MD Unavailable Pamella SortoW Unavailable Unavailab le Reason for Visit * Reason Comments Medication Refill Encounter Details Date Type Department Care Team (Late st Contact Info) Description 04/04/2021 Refill [facility] - [place] [address] [place] [address] Jennifer Mcwilliams Ella, PAC [address] [place] [address] Medication Refill Social History Tobacco Use Types Packs/Day Years Used Date Smoking Tobacco: Former Cigarettes 0 07/01/2015 - 06/30/2016 Smokeless Tobacco: Never Alcohol Use Standard Drinks/Week Comments No 0 (1 standard drink = 0.6 oz pur e alcohol) Sexually Active Control Partners Comments Yes Male Comments No Sex and Gender Information Value Date Recorded Sex Assigned at Female 03/05/2024 12:21 AM WILDLIFE REMOVAL SPECIALIST Legal Sex Female 8:44 PM CDT Gender Identity Female 03/05/2024 12:21 AM WILDLIFE REMOVAL SPECIALIST Sexual Orientation Not on file Occupation Industry [...] documented as of this encounter Care Teams Demolition Worker Relationship Specialty Start Date End Date Provider, None [place] PCP - General 11/26/21 02/29/24 Aubree Alvarez, ANIMAL NURSERY WORKER, DIRECTOR OF FOOD AND NUTRITION [address] [place] [address] PCP - General Certified Nurse Practitioner 03/01/24 Mana Hinson Health Geological Engineer 03/03/24 03/18/24 Niranjan Valdez MD [address] [address] Consulting Physician Urology 03/14/24 Pamella Sorto LSW PA Test Kitchen Home Economist Physician/Internist 08/04/24 08/10/24 documented as of this encounter
--- OUTSIDE RECORDS SUMMARY | 2024-09-26 15:17 | XMS_ITS | Clinical Summary ---
Author Organization [facility] Address [address] [place] [address] Care Team Providers Care Handle Bender Name Role Phone Salomon Jones MD Primary Care Provider Allergies Active Allergy Reactions Criticality Noted Date [...] (07/23/2017): Added automatically from request for surgery [id number] History of colon polyps 07/23/2017 Overview (07/23/2017): Added automatically from request for surgery [id number] Palpitations 08/08/2014 Overview (06/05/2016): Palpitations Depression 08/08/2014 [...] on file Legal Sex Female 12:38 AM LENS MARKER Gender Identity Not on file Sexual Orientation Not on file Obstetrics History Last Filed Vital Signs Vital Sign Reading Time Taken Comments Blood Pressure 105/70 03/04/2024 12:47 PM LENS MARKER Pulse 82 03/04/2024 12:47 PM LENS MARKER Temperature 36.6 C (97.8 F) 03/04/2024 12:47 PM LENS MARKER Respiratory Rate 16 03/04/2024 12:47 PM LENS MARKER Oxygen Saturation 97% 03/04/2024 12:47 PM LENS MARKER Inhaled Oxygen Concentration - - Weight 58.1 kg (128 lb) 03/04/2024 12:47 PM LENS MARKER Height 154.9 cm (5' 1) 03/04/2024 12:47 PM LENS MARKER Body Mass Index 24.19 03/04/2024 12:47 PM LENS MARKER Plan of Treatment Health Maintenance Due Date Last Done Comments Breast Cancer Screening-Mammogram 1980 Depression Screening 1978 Hepatitis C Screening 1978 DTaP/Tdap/Td Vaccine (1 - Tdap) 1989 Hepatitis B Screening 1996 Regular Well Visit/Exam 18-64 1996 Influenza Vaccine (#1) 2024 Colon Cancer Screening-Colonoscopy 08/15/20272017 HPV Vaccines Aged [...] Liz MD - 08/14/2017 10:18 AM CDT [facility] Patient Name: Parisa Padron Procedure Date: 08/14/2017 10:18 AM Date of : 1980 Admit Type: Outpatient Age: 37 Gender: Female Attending MD: David Liz M.D. Room: [facility] ENDOSCOPY ROOM 1 Note Status: Finalized Procedure: [...] scope was passed under direct vision.The Colonoscope [id number] was introducedthrough the anus and advanced to [...] 10:18 AM Procedure Code(s): --- Professional --- 88927, Colonoscopy, flexible; diagnostic, including collection of specimen(s) by brushing or washing, when performed (separateprocedure) Diagnosis Code(s): --- Professional --- R19.7, Diarrhea, unspecified K52.9, Noninfective gastroenteritis and colitis, unspecified R10.84, Generalized abdominal pain K64.9, Unspecified hemorrhoids CPT copyright 2017 [employer]. All rights reserved. The codes documented in this report are preliminary and upon rn community health reviewmay be revised to meet current compliance requirements. Recognized by the [place] for promoting quality in endoscopy David Liz MD ENDOSCOPY PROCEDURES Final Re sult from Last 3 Months or Most Recently Relevant to Health Maintenance Insurance [employer] Roam[employer] PLAN Advance Directives For more information, please contact: [phone] * Full Code (Latest Code Status on File) Date Activated Date Inactivated Comments 08/14/2017 9:43 AM 08/14/2017 1:47 PM Care Teams Handle Bender Relationship Specialty Start Date End Date Salomon Jones MD PCP - General Internal Medicine 12/29/21
--- OUTSIDE RECORDS SUMMARY | 2024-09-26 15:18 | XMS_ITS | Clinical Summary ---
Author Organization [facility] Address [address] [place] [address] Phone Care Team Providers Care Cork Mixer Name Role Phone AntonioAubree Shaquille ELLIOTT, JEWELRY DRILL OPERATOR Primary Care Provider [phone] Niranjan Valdez MD Unavailable Allergies Active Allergy Reactions Criticality Noted Date Comments Ampicillin Unknown 01/23/2015 Diphenhydramine Hcl (Sleep) Anxiety 02/14/2015 Prochlorperazine Maleate Anxiety 02/14/2015 Fentanyl Other (see Comments) 03/04/2024 Restless legs Promethazine Other (see Comments) 07/05/2024 Restless legs Metoclopramide Hcl Other (see Comments) 04/08/2015 STATES CAUSES LEG CRAMPS Ketorolac Tromethamine Rash Medium 01/23/2015 Medications cetirizine (ZyrTEC) 10 MG Tablet Take 1 Tablet by mouth daily. 90 Tablet 2 06/22/19 25 Active ciprofloxacin (CIPRO) 500 MG Tablet take 1 tablet by mouth every 12 hours for 7 days 07/03/19 25 Active valACYclovir (VALTREX) 1 GM Tablet Take 1 Tablet by mouth 2 times daily. 20 Tablet 08/05/19 25 Active cromolyn (OPTICROM) 4 % SolutionIndication s:Allergic conjunctivitis of both eyes Place 1 Drop in affected eye(s) 4 times daily. Use in affected eye(s) until resolved 10 mL 08/24/19 25 Active buPROPion (WELLBUTRIN) 150 MG XL tablet TAKE 1 TABLET BY MOUTH ONCE DAILY IN THE MORNING 90 Tablet 08/30/19 25 Active metoprolol tartrate (LOPRESSOR) 50 MG TabletIndications: Tachycardia Take 1 tablet by mouth twice daily 60 Tablet 2 08/30/19 25 Active buPROPion (WELLBUTRIN) 150 MG XL tablet TAKE 1 TABLET BY MOUTH ONCE DAILY IN THE MORNING 90 Tablet 06/22/19 25 025 Discontinued metoprolol tartrate (LOPRESSOR) 50 MG TabletIndications: Tachycardia Take 1 tablet by mouth twice daily 60 Tablet 07/28/19 25 025 Discontinued Active Problems Problem Noted Date Diagnosed Date [...] Encounters Date Type Department Care Team Description 09/06/2024 Nurse Triage [facility] [address] [place] [phone] Aubree Alvarez APRN, JEWELRY DRILL OPERATOR Depression; Anxiety 08/27/2024 Refill [facility] - Primary Care - [address] [phone] Aubree Alvarez APRN, JEWELRY DRILL OPERATOR Medication Refill 08/17/2024 [facility] [address] [place] [phone] Aubree Alvarez APRN, JEWELRY DRILL OPERATOR Prior Authorization (olopatadine (PATADAY) 0.2 % Solution) 08/10/2024 [facility] [address] [place] [phone] Pamella Sorto LSW Care Management ( outreach) 08/04/2024 10:30 AM CDT Office Visit [facility] [address] [place] [phone] Aubree Alvarez APRN, SHARLA Poison yoan (Primary Dx); Anxiety; Allergic conjunctivitis of both eyes Discharge Disposition: Discharged to home or Selfcare 08/04/2024 Telephone [facility] [address] [place] [address] Aubree Alvarez APRN, JEWELRY DRILL OPERATOR Medication Refill 08/04/2024 Patient Outreach [facility] [address] [place] [phone] Alisson Mckeon BSW Care Management (Reach out about Enrollment-First attempt) 08/04/2024 Travel 08/03/[address] [facility] [address] [place] [phone] Aubree Alvarez APRN, JEWELRY DRILL OPERATOR Rash 07/27/2024 Refill [facility] [address] [place] [address] Aubree Alvarez APRN, JEWELRY DRILL OPERATOR Medication Refill 07/06/2024 Results Follow-Up [facility] [address] [place] [address] Javy Hanson MD SYPHILIS IGG/IGM W/REFLEX, HIV 1 & 2 ANTIBODY & ANTIGEN SCREEN, CHLAMYDIA & GC DNA PROBE > 12, Additional followed-up results: 2 07/05/2024 1:40 PM CDT Lab [facility] [place] [address] Lab, [address] STD exposure Discharge Disposition: Discharged to home or Selfcare 07/05/2024 1:15 PM CDT Office Visit [facility] [address] [place] [address] Javy Hanson MD STD exposure (Primary Dx); Rash of face Discharge Disposition: Discharged to home or Selfcare 07/05/2024 Travel 07/05/2024 Nurse Triage [facility] [address] [place] [phone] Aubree Alvarez, ELECTRICAL CONSTRUCTION PROJECT MANAGER, JEWELRY DRILL OPERATOR Advice Only; Sexually Transmitted Disease; Cold Sores (/) from Last 3 Months Immunizations Immunization Administration Dates Next Due Covid-19, Mrna, Lnp-s, Pf, T ris-sucrose, 30 Mcg/0.3 Ml ([employer]) 01/27/2023 Family History Medical History Relation Name Comments [...] drink = 0.6 oz pur e alcohol) [facility] Utilities Answer Date Recorded In the past 12 months has [employer], gas, oil, or water codesy threatened to shut off services in your home? Patient declined 03/05/2024 Social Connection and Isolation Panel Answer Date Recorded In a typical week, how many times do you talk on the phone with family, friends, or neighbors? Patient declined 03/05/2024 How often do you get togethe r with friends or relatives? Patient declined 03/05/2024 How often do you attend methodist or confucianism serv ices? Patient declined 03/05/2024 Do you belong to any clubs o r organizations such as methodist groups, unions, fraternal or athletic groups, or [...] Score - Questions 1-9 16 05/0 07/2024 [facility] - Occupational Stress Questionnaire Answer Date [...] any time in the past [address] [facility], were you homeless or living in a retirement (including now)? 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 Not on file Last Filed Vital Signs Vital Sign Reading Time Taken Comments Blood Pressure 100/68 08/04/2024 10:35 AM CDT Pulse 78 08/04/2024 10:35 AM CDT Temperature 36.6 C (97.9 F) 08/04/2024 10:35 AM CDT Respiratory Rate 20 08/04/2024 10:3 5 AM CDT Oxygen Saturation 100% 08/04/2024 10: 35 AM CDT Inhaled Oxygen Concentration - - Weight 57.5 kg (126 lb 11.2 oz) 025 10:35 AM CDT Height 154.9 cm (5' 1) 08/04/2024 10:3 5 AM CDT Body Mass Index 23.94 08/04/2024 10:35 AM CDT Plan of Treatment Health Maintenance Due Date Last Done Comments Mammogram 1978 TdaP Immunization 1978 Hepatitis B Immunization (1 of 3 - 19+ 3-dose series) 1997 Discussion re Starting/Frequency of Mammograms 2018 Cologuard 2023 Immunochemical Fecal Occult Blood 2023 SARS-COV-2 Immunization ( season) 2023 01/27/2023 Influenza Immunization (#1) 2024 Colonoscopy 08/15/2027 08/14/2017, 12/18/2014 Colorectal Cancer Screening 08/15/2027 Respiratory Syncytial Virus (RSV) Immunization (Adult) (1 - 1-dose 75+ series) 2053 Hepatitis C Virus (HCV) Screening Completed 03/01/2024 [...] this topic Medical Devices Explanted Type Area Bridge Rigger Device Identifier Shelf Expiration Date Model / Serial / Lot Stent Ureteral 5fr 2.1fr 24cm 2 Pigtail Curve 2 Durometer Taper Tip Loprfl Graduated Polaris Ultra - [id number] Implanted:Qty : 1 on 03/05/2024 by Niranjan Valdez MD at [facility] Explanted:Qty : 1 on 04/21/2024 at [facility] IMPLANT Left: Ureter DevHD 07/20/2026 [id number] / [id number] / [id number] Procedures Procedure Name Priority Date/Time Associated Diagnosis Comments HSV TYPE II IGG ANTIBODY Today 07/05/2024 1:56 PM CDT STD exposure HSV TYPE I IGG ANTIBODY Today 07/05/2024 1:56 PM CDT STD exposure HERPES SIMPLEX 1 & 2 ANTIBODIES IGG Today 07/05/2024 1:56 PM CDT STD exposure HIV 1 & 2 ANTIBODY & ANTIGEN SCREEN PANEL Today 07/05/2024 1:56 PM CDT STD exposure SYPHILIS IGG/IGM W/REFLEX Today 07/05/2024 1:56 PM CDT STD exposure CHLAMYDIA & GC DNA PROBE Today 07/05/2024 1:56 PM CDT STD exposure CHLAMYDIA & GC DNA PROBE ADULT Today 07/05/2024 1:56 PM CDT STD exposure HEPATITIS C ANTIBODY Routine 03/01/2024 11:53 AM FARMWORKER GRAIN High risk sexual behavior, unspecified type HM COLONOSCOPY Routine 08/14/2017 from Last 3 Months or Most Recently Relevant to Health Maintenance Results * HIV 1 & 2 ANTIBODY & ANTIGEN SCREEN (07/05/2024 1:56 PM CDT) HIV 1 & 2 ANTIBODY & ANTIGEN SCREEN NON DETECTED NON DETECTED 07/05/2024 10:20 PM CDT [facility] Blood Venipuncture / Unknown 07/05/2024 1:56 PM CDT 07/05/2024 1:56 PM CDT Javy Hanson MD CHEMISTRY ORDERABLES Tori l Result Performing Organization Address [facility] Co de Phone Number [facility] [address] [place] [address], [place] * CHLAMYDIA & GC DNA PROBE > 12 (07/05/2024 1:56 PM CDT) CHLAMYDIA DNA NEGATIVE NEGATIVE 07/06/2024 5:38 AM CDT [facility] Comment: Presumed negative for C. trachomatis. A negative result does not preclude C. trachomatis infection because results are dependent on adequate specimen collection, absence of inhibitors, and sufficient DNA to be detected. This test was performed using DALE 5800 Real Time PCR. GC DNA NEGATIVE NEGATIVE 07/06/2024 5:38 AM CDT [facility] Comment: Presumed negative for N. gonorrhoeae. A negative result does not preclude N. gonorrhoeae infection because results are dependent on adequate specimen collection, absence of inhibitors, and sufficient DNA to be detected. This test was performed using DALE 5800 Real Time PCR. Other URINE / Unknown Non-Phlebotomy Collection / Unknown 07/05/2024 1:56 PM CDT 07/05/2024 1:56 PM CDT Javy Hanson MD MICROBIOLOGY - GENERAL OR DERABLES Final Result Performing Organization Address City/[facility]/ZIP Co de Phone Number [facility] [address] [place] [address], [place] * SYPHILIS IGG/IGM W/REFLEX (07/05/2024 1:56 PM CDT) SYPHILIS IGG/IGM Nonreactive Nonreactive 07/05/2024 10:20 PM CDT [facility] Blood Venipuncture / Unknown 07/05/2024 1:56 PM CDT 07/05/2024 1:56 PM CDT Javy Hanson MD IMMUNOLOGY ORDERABLES Fin al Result Performing Organization Address [facility] Co de Phone Number [facility] [address] [place] [address], [place] * (ABNORMAL) HSV TYPE II IGG ANTIBODY (07/05/2024 1:56 PM CDT) HSV TYPE 2 IGG AB >8.0(H) <1.1 AI 07/05/2024 10:33 PM CDT [facility] Comment: <0.9 Negative. No detectable HSV-2 IgG antibody. 0.9 - 1.0 Equivocal >=1.1 Positive Antibody testing was performed by multiplex flow immunoassay on the BioPlex platform. Blood Venipuncture / Unknown 07/05/2024 1:56 PM CDT 07/05/2024 1:56 PM CDT Javy Hanson MD CHEMISTRY ORDERABLES Tori l Result Performing Organization Address [facility] Co de Phone Number [facility] [address] [place] [address], [place] * HSV TYPE I IGG ANTIBODY (07/05/2024 1:56 PM CDT) HSV TYPE 1 IGG AB 0.3 <1.1 AI 07/05/2024 10:33 PM CDT [facility] Comment: <0.9 Negative. No detectable HSV-1 IgG antibody. 0.9 - 1.0 Equivocal >=1.1 Positive Antibody testing was performed by multiplex flow immunoassay on the BioPlex platform. Blood Venipuncture / Unknown 07/05/2024 1:56 PM CDT 07/05/2024 1:56 PM CDT Javy Hanson MD CHEMISTRY ORDERABLES Tori l Result Performing Organization Address City/[facility] Co de Phone Number [facility] [address] [place] [address], [place] * HEPATITIS C ANTIBODY (03/01/2024 11:53 AM FARMWORKER GRAIN) hepatitis C antibody 0.08 <1 S/CO 03/01/2024 10:58 PM FARMWORKER GRAIN [facility] Comment: Signal/Cutoff ratio < 0.79 is Nondetected Signal/Cutoff ratio 0.80-0.99 is Grayzone Signal/Cutoff ratio > 0.99 is Detected Supplemental assays are recommended if signal/cutoff ratio is >/=1.00. Signal/cutoff ratio result >/= 5.00 is 97% predictive of positivity for recombinant immunoblot assay (RIBA) and will be reported to the [place] Department of Public Health as required. Blood Venipuncture / Unknown 03/01/2024 11:53 AM FARMWORKER GRAIN 03/01/2024 11:53 AM FARMWORKER GRAIN us Aubree Alvarez ELECTRICAL CONSTRUCTION PROJECT MANAGER, JEWELRY DRILL OPERATOR CHEMISTRY ORDERABLES Final Result [facility] [address] [place] [address], [place] * COLONOSCOPY (08/14/2017) David Liz MD PROCEDURE/MINOR SURGICAL ORDER WERNER Edited Result - Final from Last 3 Months or Most Recently Relevant to Health Maintenance Insurance [place] [id number] Advance Directives * Full Code (Latest Code [...] all measures to stabilize patient. Care Teams Cork Mixer Relationship Specialty Start Date End Date Aubree Alvarez, ELECTRICAL CONSTRUCTION PROJECT MANAGER, JEWELRY DRILL OPERATOR [address] [address] PCP - General Certified Nurse Practitioner 03/01/24 Niranjan Valdez MD [address] [address] Consulting Physician Urology 03/14/24
--- OUTSIDE RECORDS SUMMARY | 2024-09-26 15:18 | XMS_ITS | Clinical Summary ---
Author Organization [facility] Address [facility] [place] [address] Care Team Providers Care Under Cutting Machine Operator Name Role Phone None, Provider MD Primary [...] Comments Blood Pressure 106/85 02/17/2019 6:51 PM CLOTHING EXAMINER Pulse 91 02/17/2019 6:51 PM CLOTHING EXAMINER Temperature 37.1 C (98.7 F) 02/17/2019 6:51 PM CLOTHING EXAMINER Respiratory Rate 19 02/17/2019 6:51 PM CLOTHING EXAMINER Oxygen Saturation 98% 02/17/2019 6:51 PM CLOTHING EXAMINER Inhaled Oxygen Concentration - - Weight 61.9 kg (136 lb 7.4 oz) 02/17/2019 6:55 P M CLOTHING EXAMINER Height 154.9 cm (5' 1) 02/17/2019 6:51 PM CLOTHING EXAMINER Body Mass Index 25.78 02/17/2019 6:51 PM CLOTHING EXAMINER Plan of Treatment Health Maintenance Due Date [...] complete this topic Insurance MEDICAID Care Teams Under Cutting Machine Operator Relationship Specialty Start Date End Date None, Provider, PCP - General 02/17/19
--- OUTSIDE RECORDS SUMMARY | 2024-09-26 15:18 | XMS_ITS | Patient Health Record ---
Author Organization [facility] Address [address] [place] [address] Care Team Providers Care Front Desk Manager Name Role Phone Farzaneh Padron Primary Care Provider Hanny Monet Unavailable [phone] Lynette Dahl Unavailable [phone] Allergies Allergen (clinical drug ingredient) Drug/Non Drug Allergy documented on EMR Reaction Allergy Type Onset Date Status promethazine Phenergan Unknown Drug Allergy Acti ve ampicillin Ampicillin Unknown Drug Allergy Activ e Reason For Referral No Information Medications Medication SIG (Take, Route, Frequency, Duration) Notes Start Date End Date Status Forfivo XL 450 MG 1 tablet in the morning Orally Once a day; Duration: 30 day(s) 01/31/2021 Active Metoprolol Tartrate 50 MG Take 1 tablet by mouth twice daily; Duration: 30 no more refills until she has [...] drugs Dilaudid in 2010 OTC denies location- [place] Current home location- [place] though chart states [place] Who lives at [...] for associates Occupation/Job history- 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 She reports that she is starting to do more things, like being outside and crafts. Social Activities-- Client reports that she has a good support system, but that she doesn't have any friends due to her trust issues. Spiritual Affiliation- Believes in god, does not go to synagogue Probation/Legal trouble/?- Client reports having three DUI's, but hopes to get her license back in the near future. Client reports making poor decisions involving drugs. LEGAL: Client is currently on parole. Recently released from halfway. Client has a previous possession charge and 3 DUI's. [facility] until 05/14/2020. Felony. PARENTING- Client reports that her substance use affected her role as a parent. 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 She reports that she is starting to do more things, like being outside and crafts. Social Activities-- Client reports that she has a good support system, but that she doesn't have any friends due to her trust issues. Spiritual Affiliation- Believes in god, does not go to synagogue Probation/Legal trouble/?- Client reports having three DUI's, but hopes to get her license back in the near future. Client reports making poor decisions involving drugs. LEGAL: Client is currently on parole. Recently released from halfway. Client has a previous possession charge and 3 DUI's. [facility] until 05/14/2020. Felony. PARENTING- Client reports that her substance use affected her role as a parent. 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 She reports that she is starting to do more things, like being outside and crafts. Social Activities-- Client reports that she has a good support system, but that she doesn't have any friends due to her trust issues. Spiritual Affiliation- Believes in god, does not go to synagogue Probation/Legal trouble/?- Client reports having three DUI's, but hopes to get her license back in the near future. Client reports making poor decisions involving drugs. LEGAL: Client is currently on parole. Recently released from halfway. Client has a previous possession charge and 3 DUI's. Client was incarcerated at [facility] until 05/14/2020. Felony. PARENTING- Client reports that her substance use affected her role as a parent. 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 She reports that she is starting to do more things, like being outside and crafts. Social Activities-- Client reports that she has a good support system, but that she doesn't have any friends due to her trust issues. Spiritual Affiliation- Believes in god, does not go to synagogue Probation/Legal trouble/?- Client reports having three DUI's, but hopes to get her license back in the near future. Client reports making poor decisions involving drugs. LEGAL: Client is currently on parole. Recently released from halfway. Client has a previous possession charge and 3 DUI's. Client was [facility] until 05/14/2020. Felony. 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 She reports that she is starting to do more things, like being outside and crafts. Social Activities-- Client reports that she has a good support system, but that she doesn't have any friends due to her trust issues. Spiritual Affiliation- Believes in god, does not go to synagogue Probation/Legal trouble/?- Client reports having three DUI's, but hopes to get her license back in the near future. Client reports making poor decisions involving drugs. LEGAL: Client is currently on parole. Recently released from halfway. Client has a previous possession charge and 3 DUI's. Client was [facility] until 05/14/2020. Felony. 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 She reports that she is starting to do more things, like being outside and crafts. Social Activities-- Client reports that she has a good support system, but that she doesn't have any friends due to her trust issues. Spiritual Affiliation- Believes in god, does not go to synagogue Probation/Legal trouble/?- Client reports having three DUI's, but hopes to get her license back in the near future. Client reports making poor decisions involving drugs. LEGAL: Client is currently on parole. Recently released from halfway. Client has a previous possession charge and 3 DUI's. Client was [facility] until 05/14/2020. Felony. PARENTING- Client reports that her substance use affected her role as a parent. Problems Problem Type SNOMED Code ICD Code Onset Dates Problem Status W/U Status Risk Notes Problem Posttraumatic stress disorder (86221954) Post traumatic stress disorder (F43.10) Active confirmed Problem Generalized anxiety disorder (92569196) PENNY (generalized anxiety disorder) (F41.1) Active confirmed Problem Acute stress disorder (09334838) Stress reaction (F43.0) Active confirmed Encounters Encounter Location Date Provider Diagnosis [facility] [address] [place] [address] 10/09/2023 Lynette Dahl Plan Of Treatment No Information Insurance Providers Payer Name Payer Address Payer Phone Subscriber Number Group Number Insured Name Patient Relationship to Insured Coverage Start Date Coverage End Date MEDICAID [address] [place] [address] [id number] Parisa Gee Self - patient is the insured 1 1 [facility] Plan [address] [place] [id number] Parisa Gee Self - patient is the insured [address] [address] [id number] Parisa Gee Self - patient is the insured 1 Medical (General) History Medical History History ICD Code heart palpitation constipation irritable bowel syndrome Surgical History Surgery Date(Month/Year) appendectomy cholecystectomy c section PARTIAL HYSTERECTOMY tonsilectomy
[2024-09-26 15:19] VITALS: BP 99/72; PULSE 72; RESP 16; TEMP 36.8; O2SAT 100
--- NOTE | 2024-09-26 15:26 | ED.EAR ---
HPI - Ear Problem General Chief complaint: Ear Stated complaint: Ear/std test History of Present Illness HPI Narrative: Patient is a 44-year-old female, presents to [facility] with request for STI screening and treatment. She states she is in a relationship with an individual who has had sex with the another individual who was reportedly positive for gonorrhea, Trichomonas and possibly syphilis. She states that she has also heard from a mutual friend that the secondary encounter they have also had HIV. She is currently homeless, sleeping on a friend's couch is states she has not had funds for food or medications. She did show only endorses right ear pain for the past week and has 2 insect bites to her scalp the base of her hairline occipitally that she was requesting examination of while here today as well. She denies chance of . She has no dysuria. Of note she was treated recently for UTI which grew E coli. Symptoms resolved with antibiotic therapy. Related Data Home Medications ?Medication ?Instructions ?Recorded ?Confirmed ?Last Taken ?Type bupropion HCl 150 mg 24 hr tablet, mg PO 03/13/24 Unknown History extended release metoprolol succinate 50 mg mg PO 03/13/24 Unknown History tablet,extended release 24 hr Allergies Allergy/AdvReac Type Severity Reaction Status Date / Time fentanyl Allergy Unknown Unknown Verified 09/26/24 15:26 ketorolac Allergy Unknown Unknown Verified 09/26/24 15:26 meperidine Allergy Unknown Unknown Verified 09/26/24 15:26 metoclopramide Allergy Unknown Unknown Verified 09/26/24 15:26 morphine Allergy Unknown Unknown Verified 09/26/24 15:26 promethazine Allergy Unknown Unknown Verified 09/26/24 15:26 Review of Systems ENT: Reports as per HPI Genitourinary: Genitourinary: Reports as per HPI [facility] Past Medical History Medical History Depression Kidney stone Palpitations Surgical History Surgical History History of tonsillectomy H/O: hysterectomy Status post laser lithotripsy of ureteral calculus ureteral stent Family History Family History Mother Depression Hypertension Family history of elevated blood lipids Other Diabetes mellitus Family history of tuberculosis Social History Social History Smoking status: Unknown if ever smoked Alcohol intake: never Substance use: unknown Living arrangements: with family Gender identity (if verbalized by the patient): Female Exam Const: General: healthy appearing, no acute distress and alert Nutritional Appearance: well nourished Orientation/consciousness: patient oriented x3 Limitations: no limitations HENMT: Head: normal to inspection Ears: external ears normal and TM abnormal retracted bilateral Face/Nose/Sinus: Normal external nose present and Normal nares present Face and sinus: normal facial exam and sinuses nontender Teeth and gingiva: dentition normal Eyes: Conjunctivae: conjunctivae normal Pupils: Equal, round and reactive pupils present EOM: EOMs intact bilaterally Direct Ophthalmoscopy: no photophobia Neck: Neck: normal visual inspection, no lymphadenopathy and no meningeal signs Resp: Effort & Inspection: normal respiratory effort Auscultation: clear to auscultation bilaterally Cardio: Rate: regular rate Rhythm: regular rhythm Back/Spine/Pelvis: Back: no CVA tenderness Skin: General skin exam: normal color Rashes: no rashes Wounds: no wounds Extrem: General: normal to inspection Course Course Emergency Course: Patient has provided a urine sample for gonorrhea chlamydia Trichomonas. Will treat empirically for gonorrhea, chlamydia and Trichomonas. She will complete doxycycline at home as well and will follow-up with her OBGYN as well as her PCP. She has, while in her exam room, contacted her PCP and has arranged for HIV and syphilis/RPR testing as an outpatient through [facility] before she departs the facility. She is encouraged to use condoms to reduce recurrent infectious risk. Patient verbalized understanding she is agreeable plan Level of Care: Express Care Visit (36203) Vital Signs Vital signs: Vital Signs Temperature 36.8 C 09/26/24 15:19 Pulse Rate 72 09/26/24 15:19 Respiratory Rate 16 09/26/24 15:19 Blood Pressure 99/72 L 09/26/24 15:19 Pulse Oximetry 100 09/26/24 15:19 Oxygen Delivery Room Air 09/26/24 15:19 Temperature 36.8 C 09/26/24 15:19 Pulse Rate 72 09/26/24 15:19 Respiratory Rate 16 09/26/24 15:19 Blood Pressure 99/72 L 09/26/24 15:19 Pulse Oximetry 100 09/26/24 15:19 Oxygen Delivery Room Air 09/26/24 15:19 Medical Decision Making MDM Narrative Medical decision making narrative: empiric treatment for STI. Serous effusion noted to right TM only, she is encouraged to continue Zyrtec she has been over counter and add Flonase, the insect bites to her scalp or not visible, there is no other rash noted. No fluctuance or tenderness at the mastoid bones bilaterally. The Zyrtec she is taking daily may provide added symptom relief. Topical hydrocortisone may also be applied as directed [id number]. Patient is encouraged to try that she is eating after she leaves here, she is given Darrius crackers to ensure that she is not taking the antibiotics on an empty stomach and will start the doxycycline tomorrow. Differential Diagnosis Differential Diagnosis: STI, high-risk sexual behavior, serous otitis media, eustachian tube dysfunction, insect bite reaction Vital Signs Vital Signs: Vital Signs Temperature 36.8 C 09/26/24 15:19 Pulse Rate 72 09/26/24 15:19 Respiratory Rate 16 09/26/24 15:19 Blood Pressure 99/72 L 09/26/24 15:19 Pulse Oximetry 100 09/26/24 15:19 Oxygen Delivery Room Air 09/26/24 15:19 Temperature 36.8 C 09/26/24 15:19 Pulse Rate 72 09/26/24 15:19 Respiratory Rate 16 09/26/24 15:19 Blood Pressure 99/72 L 09/26/24 15:19 Pulse Oximetry 100 09/26/24 15:19 Oxygen Delivery Room Air 09/26/24 15:19 Lab Data Lab results narrative: 1. Escherichia Coli M.I.C. RX --------- --- Amoxicillin/Clavulanate 8 S Ampicillin/Sulbactam 16 I Cefazolin <=4 NR For infections other than uncomplicated UTI caused by E. coli, K. pneumoniae or P. mirabilis: Cefazolin is resistant if JESSI > or = 8 mcg/mL. (Distinguishing susceptible versus intermediate for isolates with JESSI < or = 4 mcg/mL requires additional testing.) For uncomplicated UTI caused by E. coli, K. pneumoniae or P. mirabilis: Cefazolin is susceptible if JESSI <32 mcg/mL and predicts susceptible to the oral agents cefaclor, cefdinir, cefpodoxime, cefprozil, cefuroxime, cephalexin and loracarbef. Ceftazidime <=1 S Cefepime <=0.12 S Ceftriaxone <=0.25 S Ciprofloxacin 0.5 I Levofloxacin 1 I Gentamicin <=1 S Imipenem <=0.25 S Meropenem <=0.25 S Nitrofurantoin <=16 S Piperacillin/Tazobactam <=4 S Trimethoprim/Sulfamethoxazole >=320 R Legend: S = Susceptible I = Intermediate R = Resistant NS = Not susceptible SDD = Susceptible Dose Dependent * = Not Tested NR = Not Reported NN = See Therapy Comments [facility] urine culture results from June 2024: Discharge Plan Discharge Clinical Impression: Acute dysfunction of right eustachian tube, Insect bite of face, neck, or scalp, Potential exposure to STD High risk sexual behavior Qualifiers: High risk sexual behavior type: heterosexual Qualified Code(s): Z72.51 - High risk heterosexual behavior Patient Disposition: Home Condition: Stable Instructions: Antibiotic Form, Sexually Transmitted Diseases (ED), Fluid In The Ear (Serous Otitis Media) (ED) Additional Instructions: START AND COMPLETE ORAL ANTIBIOTICS DIRECTED. TAKE WITH FOOD TO REDUCE GI SIDE EFFECTS. USE CONDOMS 100% OF THE TIME TO REDUCE EXPOSURE TO STDS. FOLLOW-UP WITH YOUR PRIMARY CARE PROVIDER REGARDING THE LABORATORIES THEY HAVE SENT ORDERS FOR TODAY AND WITH ANY RESIDUAL SYMPTOMS OR STI CONCERNS. Patient Language: Maori Prescriptions: New doxycycline hyclate 100 mg capsule 100 mg PO BID Qty: 14 0RF No Action metoprolol succinate 50 mg tablet extended release 24 hr PO bupropion HCl 150 mg tablet extended release 24 hr PO cetirizine [Zyrtec] 10 mg tablet 10 mg PO DAILY Qty: 20 0RF Follow-up/Referrals: Valentin,Javy Carter MD [Primary Care Provider] - Time of Disposition: 16:10
[2024-09-26] MEDS: cefTRIAXone 500 MG VIAL IM (16:07)
[2024-09-26] MEDS: LIDOCAINE 1% LOCAL INJ 2 ML AMPUL 1 ML INFILTRATE (16:23)
[2024-09-26 20:09] LABS: Trichomonas Vag PCR NOT DETECTED (NOT DETECTE)
== END 2024-09-26 16:30 | disposition home or self-care (01) ==
PROVIDERS: Emergency Provider Nurse Practitioner Family; PCP Internal Medicine
DX: H69.91 Unspecified Eustachian tube disorder, right ear (principal); S00.86XA Insect bite (nonvenomous) of other part of head, initial encounter; S10.96XA Insect bite of unspecified part of neck, initial encounter; S00.06XA Insect bite (nonvenomous) of scalp, initial encounter; W57.XXXA Bitten or stung by nonvenomous insect and other nonvenomous arthropods, initial encounter; Z11.3 Encounter for screening for infections with a predominantly sexual mode of transmission; Z72.51 High risk heterosexual behavior; F32.A Depression, unspecified
CPT/HCPCS: 87491; 87591; 87661; 96372; 99213; A9270; G0463; J0696; J2003

== ENCOUNTER 2024-09-30 16:33 | Emergency (ER) | payer BC, SELFPAY ==
--- OUTSIDE RECORDS SUMMARY | 2024-09-30 16:35 | XMS_ITS | Clinical Summary ---
Author Organization [facility] Address [address] [place] [id number] Care Team Providers Care Adjuster Name Role Phone Salomon Jones MD Primary [...] (07/23/2017): Added automatically from request for surgery [id number] History of colon polyps 07/23/2017 Overview (07/23/2017): Added automatically from request for surgery [id number] Palpitations 08/08/2014 Overview (06/05/2016): Palpitations Depression 08/08/2014 [...] on file Legal Sex Female 12:38 AM CATALYST CONCENTRATION OPERATOR Gender Identity Not on file Sexual Orientation Not on file Obstetrics History Last Filed Vital Signs Vital Sign Reading Time Taken Comments Blood Pressure 105/70 03/04/2024 12:47 PM CATALYST CONCENTRATION OPERATOR Pulse 82 03/04/2024 12:47 PM CATALYST CONCENTRATION OPERATOR Temperature 36.6 C (97.8 F) 03/04/2024 12:47 PM CATALYST CONCENTRATION OPERATOR Respiratory Rate 16 03/04/2024 12:47 PM CATALYST CONCENTRATION OPERATOR Oxygen Saturation 97% 03/04/2024 12:47 PM CATALYST CONCENTRATION OPERATOR Inhaled Oxygen Concentration - - Weight 58.1 kg (128 lb) 03/04/2024 12:47 PM CATALYST CONCENTRATION OPERATOR Height 154.9 cm (5' 1) 03/04/2024 12:47 PM CATALYST CONCENTRATION OPERATOR Body Mass Index 24.19 03/04/2024 12:47 PM CATALYST CONCENTRATION OPERATOR Plan of Treatment Health Maintenance Due [...] Liz MD - 08/14/2017 10:18 AM CDT [facility] Patient Name: Parisa Padron Procedure Date: 08/14/2017 10:18 AM Date of : 1980 Admit Type: Outpatient Age: 37 Gender: Female Attending MD: David Liz M.D. Room: [facility] 1 Note Status: Finalized Procedure: [...] scope was passed under direct vision.The Colonoscope [id number] was introducedthrough the anus and advanced to [...] 10:18 AM Procedure Code(s): --- Professional --- 31751, Colonoscopy, flexible; diagnostic, including collection of specimen(s) by brushing or washing, when performed (separateprocedure) Diagnosis Code(s): --- Professional --- R19.7, Diarrhea, unspecified K52.9, Noninfective gastroenteritis and colitis, unspecified R10.84, Generalized abdominal pain K64.9, Unspecified hemorrhoids CPT copyright 2017 [employer]. All rights reserved. The codes documented in this report are preliminary and upon orthopedic coder reviewmay be revised to meet current compliance requirements. Recognized by the [place] for promoting quality in endoscopy David Liz MD ENDOSCOPY PROCEDURES Final Re sult from Last 3 Months or Most Recently Relevant to Health Maintenance Insurance [employer] Advance Directives For more information, please contact: [phone] * Full Code (Latest Code Status on File) Date Activated Date Inactivated Comments 08/14/2017 9:43 AM 08/14/2017 1:47 PM Care Teams Adjuster Relationship Specialty Start Date End Date Salomon Jones MD PCP - General Internal Medicine 12/29/21
--- OUTSIDE RECORDS SUMMARY | 2024-09-30 16:35 | XMS_ITS | Encounter Summary ---
Author Organization [facility] Address [address] [place] [address] Phone Care Team Providers Care Light Truck Driver Name Role Phone Aubree Alvarez APRN, LAYOUT FORMER Primary Care Provider [phone]- [phone] Niranjan Valdez MD Unavailable Pamella Sorto FOURDRINIER WIRE WEAVER Unavailable Unavailab le Reason for Visit * Reason Onset Date Comments Rash 08/03/2024 Encounter Details Date Type Department Care Team (Late st Contact Info) Description 08/03/2024 Nurse Triage [facility] [address] [place] [address] Aubree Alvarez APRN, LAYOUT FORMER [address] [place] [place] [address] Rash Social History Tobacco Use Types Packs/Day Years Used Date Smoking Tobacco: Former Cigarettes 0 07/01/2015 - 06/30/2016 Smokeless Tobacco: Never Alcohol Use Standard Drinks/Week Comments Not Currently 0 (1 standard drink = 0.6 oz pur e alcohol) [facility] Utilities Answer Date Recorded In the past 12 months has [employer] electric, gas, oil, or water company threatened [...] declined 03/05/2024 How often do you attend confucianist or bahai serv ices? Patient declined 03/05/2024 Do you belong to any clubs o r organizations such as confucianist groups, unions, fraternal or athletic groups, or [...] Score - Questions 1-9 16 05/0 07/2024 [facility] of Occupat ional [facility] - Occupational Stress Questionnaire Answer [...] any time in the past 12 m [facility], were you homeless or living in a assisted (including now)? Patient declined 03/05/2024 Sexually Active Control Partners Comments Yes Male Comments No Sex and Gender Information Value Date Recorded Sex Assigned at Female 03/05/2024 12:21 AM LANDSCAPE ACCOUNT MANAGER Legal Sex Female 8:44 PM CDT Gender Identity Female 03/05/2024 12:21 AM LANDSCAPE ACCOUNT MANAGER Sexual Orientation Not on file Occupation Industry [...] genitals involved Protocols used: Poison [place] - [place] - [place] * Telephone Encounter - Luz [...] documented as of this encounter Care Teams Light Truck Driver Relationship Specialty Start Date End Date Aubree Alvarez, CUSTOM BOW MAKER, LAYOUT FORMER [address] [address] PCP - General Certified Nurse Practitioner 03/01/24 Niranjan Valdez MD [address] [address] Consulting Physician Urology 03/14/24 Pamella Sorto, FOURDRINIER WIRE WEAVER [place] Rheumatology Nurse Pottery Kiln Builder 08/04/24 08/10/24 documented as of this encounter
--- OUTSIDE RECORDS SUMMARY | 2024-09-30 16:35 | XMS_ITS | Encounter Summary ---
Author Organization [facility] Address [address] [place] [address] Phone Care Team Providers Care Manager Employee Benefits Name Role Phone Aubree Alvarez APRN, KNOT TYING OPERATOR Primary Care Provider [phone]- [phone] Niranjan Valdez MD Unavailable Reason for Visit * Reason Onset Date Comments Need Order 09/26/2024 Encounter Details Date Type Department Care Team (Late st Contact Info) Description 09/26/2024 Telephone [facility] [address] [place] [address] Aubree Alvarez APRN, KNOT TYING OPERATOR [address] [place] [address] Need Order Social History Tobacco Use Types Packs/Day Years Used Date Smoking Tobacco: Former Cigarettes 0 07/01/2015 - 06/30/2016 Smokeless Tobacco: Never Alcohol Use Standard Drinks/Week Comments Not Currently 0 (1 standard drink = 0.6 oz pur e alcohol) [facility] Utilities Answer Date Recorded In the past 12 months has [employer] electric, gas, oil, or water company threatened [...] declined 03/05/2024 How often do you attend adventist or worship serv ices? Patient declined 03/05/2024 Do you belong to any clubs o r organizations such as adventist groups, unions, fraternal or athletic groups, or [...] Score - Questions 1-9 16 05/0 07/2024 [facility] Occupat ional [facility] - Occupational Stress [...] any time in the past 12 m [facility], were you homeless or living in a prison (including now)? 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 States this is the best number [phone] Changed on pt chart with her permission. * Telephone Encounter - Lyubov Bradley RN - 09/26/2024 4:51 PM CDT Attempted to contact Parisa. Phone number not in service [phone] * Telephone Encounter - Lyubov Bradley RN - 09/26/2024 4:51 PM CDT Efaxed labs to requested fax [phone] * Telephone Encounter - Anitha Goldberg RN - 09/26/2024 3:56 PM CDT Situation: Need Order Background: Patient contacting PCP office. Assessment: Patient is at [facility] in [place]. Patient is asking for an RPR and HIV testing to be ordered. [facility] is in the building of [facility] in [place]. Patient is currently there for STD testing. 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 [facility] is treating with rocephin and doxycycline but will need PCP orders for further STD labs. [facility] Patient states lab is closed as of today, but will return tomorrow for labs. Recommendation: Encounter routed to provider high priority to notify. documented in this encounter Plan of Treatment Scheduled Orders Name Type Priority Associated Diagnoses Orde r Schedule SYPHILIS IGG/IGM W/REFLEX Lab Routine Sexual behavior with high risk of exposure to communicable disease Expected: 09/26/2024, Expires: 12/27/2024 HIV 1 & 2 ANTIBODY & ANTIGEN SCREEN PANEL Lab Routine Sexual behavior with high risk of exposure to communicable disease Expected: 09/26/2024, Expires: 10/26/2024 HEPATITIS C ANTIBODY Lab Routine Sexual behavior with high risk of exposure to communicable disease Expected: 09/26/2024 (Approximate), Expires: 10/03/2024 HERPES SIMPLEX 1 & 2 ANTIBODIES IGG Lab Routine Sexual behavior with high risk of exposure to communicable disease Expected: 09/26/2024, Expires: 03/29/2025 documented as of this encounter Visit Diagnoses Diagnosis Sexual behavior with high risk of exposure to communicable disease- Primary documented in this encounter Additional Health Concerns Assessment Noted Time PHQ-9 Depression Total Score: 16 025 1:17 PM CDT documented as of this encounter Care Teams Manager Employee Benefits Relationship Specialty Start Date End Date Aubree Alvarez, STONE SETTER METAL OPTICAL FRAMES, KNOT TYING OPERATOR [address] [place] [address] PCP - General Certified Nurse Practitioner 03/01/24 Niranjan Valdez MD [address] [place] [address] Consulting Physician Urology 03/14/24 documented as of this encounter
--- OUTSIDE RECORDS SUMMARY | 2024-09-30 16:35 | XMS_ITS | Referral Summary ---
Author Organization [facility] Address [address] [place] [address] Care Team Providers Care Potato Spotter Name Role Phone Salomon Jones MD Primary Care Provider [phone] Allergies Active Allergy Reactions Criticality Noted Date [...] (07/23/2017): Added automatically from request for surgery [id number] History of colon polyps 07/23/2017 Overview (07/23/2017): Added automatically from request for surgery [id number] Palpitations 08/08/2014 Overview (06/05/2016): Palpitations Depression 08/08/2014 [...] on file Legal Sex Female 12:38 AM PLAYGROUND WORKER Gender Identity Not on file Sexual Orientation Not on file Last Filed Vital Signs Vital Sign Reading Time Taken Comments Blood Pressure 105/70 03/04/2024 12:47 PM PLAYGROUND WORKER Pulse 82 03/04/2024 12:47 PM PLAYGROUND WORKER Temperature 36.6 C (97.8 F) 03/04/2024 12:47 PM PLAYGROUND WORKER Respiratory Rate 16 03/04/2024 12:47 PM PLAYGROUND WORKER Oxygen Saturation 97% 03/04/2024 12:47 PM PLAYGROUND WORKER Inhaled Oxygen Concentration - - Weight 58.1 kg (128 lb) 03/04/2024 12:47 PM PLAYGROUND WORKER Height 154.9 cm (5' 1) 03/04/2024 12:47 PM PLAYGROUND WORKER Body Mass Index 24.19 03/04/2024 12:47 PM PLAYGROUND WORKER Plan of Treatment Not on file Procedures [...] Female Attending MD: David Liz M.D. Room: [facility] ENDOSCOPY ROOM 1 Note Status: Finalized [...] scope was passed under direct vision.The Colonoscope [id number] was introducedthrough the anus and advanced to [...] 10:18 AM Procedure Code(s): --- Professional --- 66762, Colonoscopy, flexible; diagnostic, including collection of specimen(s) by brushing or washing, when performed (separateprocedure) Diagnosis Code(s): --- Professional --- R19.7, Diarrhea, unspecified K52.9, Noninfective gastroenteritis and colitis, unspecified R10.84, Generalized abdominal pain K64.9, Unspecified hemorrhoids CPT copyright 2017 [employer]. All rights reserved. The codes documented in this report are preliminary and upon flattening machine operator reviewmay be revised to meet current compliance requirements. Recognized by the [place] [employer] for promoting quality in endoscopy David Liz MD ENDOSCOPY PROCEDURES Final Re sult from Last 3 Months or Most Recently Relevant to Health Maintenance Insurance [employer] IDPA PLAN Advance Directives For more information, please contact: [phone] * Full Code (Latest Code Status on File) Date Activated Date Inactivated Comments 08/14/2017 9:43 AM 08/14/2017 1:47 PM Care Teams Potato Spotter Relationship Specialty Start Date End Date Salomon Jones MD PCP - General Internal Medicine 12/29/21
--- OUTSIDE RECORDS SUMMARY | 2024-09-30 16:36 | XMS_ITS | Continuity of Care Document ---
Author Organization [facility] Address [address] [id number] [address] Phone Care Team Providers Care Target Network Analyst Name Role Phone Linda Ng Unavailable Unavailable [...] 15:44:56 NEGATIVE mg/dL Negative Final Urine Specific [place] 4 15:44:56 1.020 1.000-1.030 Final Urine Blood [...] Providers Copied on Encounter OFFICE/OUTPA TIENT VISIT [facility], [id number], [address], [place] tel:[phone] Family Medicine F1 Express Care Follow-up (chief complaint) Acute coughLeft flank painHistory of kidney stonesViral respiratory illness Apr- 4 Areli Mckeon. [address], [place], [address], [place]. tel:[phone] Referring Provider: Linda Singleton, [address] [place], [address] . tel:[phone] OFFICE/OUTPA TIENT VISIT [facility], [id number] [id number], [address], [place] tel:[phone] Medical Express Care congestion, diarrhea, chills. (chief complaint) Acute cough Apr-0 4 Frandy Ma. [address], [place], [address], [place]. tel:[phone] Referring Provider: Francesca Wise, [address] [place], [address] . tel:[phone] OFFICE/OUTPA TIENT VISIT [facility], [id number] 3046141ZD- [place], [address], [place] tel:[phone] Medical Express Care cough ,congection (chief complaint) Acute coughNon-recurre nt acute suppurative otitis media of right ear without spontaneous rupture of tympanic membrane 4 Frandy Ma. [address], [place], [address], [place]. tel:[phone] Referring Provider: Francesca Wise, [address] [place], [address] . tel:[phone] OFFICE/OUTPA TIENT VISIT [facility], [id number] 50126[place], [address], [place] tel:[phone] Family Medicine F1 hematocrit is low (chief complaint)w ants hormones levels checked. (chief complaint)n europathy (chief complaint)j oint pain (chief complaint) Vitamin B12 deficiency anemia, unspecifiedVitam in D deficiencyFatigu ePain in jointIron deficiency anemia, unspecified 4 Sampson Lira. [address], [place], [address], [place]. tel:[phone] Referring Provider: Soraya Reyes, [address] [place], [address] . tel:[phone] [facility], [id number] 9[place], [place], [address], [place] tel:[phone] Family Medicine F1 Low incomeInsufficie nt Social Insurance or Welfare Support 4 Coordinator Eagle. [address], [place], [address], [place]. tel:[phone] Referring Provider: Eagle ulloa, [address] [place], [address] . tel:[phone] [facility], [id number] 2887072XKP[place], [address], [place] tel:[phone] Family Medicine F1 Vitamin D deficiency, unspecifiedEncnt r screen mammogram for malignant neoplasm of breastEncounter for screening for cardiovascular disordersIron deficiency anemia, unspecifiedVitam in B12 deficiency anemia, unspecifiedOther fatigue 4 Sampson Lira. [address], [place], [address], [place]. tel:[phone] Referring Provider: Soraya Reyes, [address] [place], [address] . tel:[phone] OFFICE/OUTPA TIENT VISIT EST [facility], [id number] 84433[place], [address], [place] tel:[phone] Family Medicine F1 establish care (chief complaint)E SA letter (chief complaint) Encounter for screening mammogram for Ca of breastEncounter for screening for cardiovascular disordersIron deficiency anemiaFatigueVit rubalcava B12 deficiency anemia, unspecifiedVitam in D deficiencyBody mass index (BMI) 27.0-27.9, adult 4 Sampson Lira. [address], [place], [address], [place]. tel:[phone] Referring Provider: Soraya Reyes, [address] [place], [address] . tel:[phone] [facility], [id number] 1611002DV[place], [address], [place] tel:[phone] Medical Express Care med refill (chief complaint) Cardiac arrhythmia, unspecified cardiac arrhythmia type 4 Marlena Millan. [address], [place], [address], [place]. tel:[phone] Referring Provider: Monty Mendiola, [address] [place], [address] . tel:[phone] Family History Family Member Type Diagnosis Age At Onset No Information Payers Payer name Insurance type Covered democrat ID Maria C cabezas(flores [place] Medicaid [id number] Social History Type Description Quantity Date Captured [...] For Visit From encounter dated '06/11/2023 15:00'. [facility] Follow-up (chief complaint). Description: Has been tested at [facility] for Covid SARS. Pt has had shortness of breath and other flu symptoms since Thursday.. Pt has no energy and feels lethargic. Was given an antibiotic at [facility]. HHMs. Gee presents to my office today as a fo llow-up from recent [facility] visits on both 06/07 and 06/08. Patient tested negative for SARs andInfluenza on 06/07 and again tested negative for SARs, Influenza, and RSV on 06/08. Recall patient was also started on oral Cefdinir on 06/07 per [facility] for treatment of suspected ear infection. Patient reports symptoms of low energy, lethargy, productive cough, and diarrhea since Monday 06/05.She reports that her dog has now developed similar symptoms at home. She denies N/V currently. She reports feeling fevers coming on. Patient does report loss of smell and taste. Patient was seen at [facility] on 06/06, [facility] on 06/07, and again on [facility] on 06/08. Reason For Referral Reason For Referral No Information Plan Of Treatment Date Type Action Status Goal Dietary manageme nt education, guidance, and counseling completed Goal Dietary manageme nt education, guidance, and counseling completed Referral Ordered: Medicaid Expansion (related to Low income) ordered Referral Ordered: Referrals: Location: [facility] ordered Referral Ordered: Referrals: mammogram ordered Future Order: Radiology Order Ab domen - 1 View ([id number]), Ordered on: Ordered History Of Present Illness Encounter Date Complaint History Of Prese nt Illness [facility] Care Follow-up Has been tested at [facility] for Covid SARS. Pt has had shortness of breath and other flu symptoms since Thursday.. Pt has no energy and feels lethargic. Was given an antibiotic at [facility]. HHMs. Gee presents to my office today as a follow-up from recent [facility] visits on both 06/07 and 06/08. Patient tested negative for SARs and Influenza on 06/07 and again tested negative for SARs, Influenza, and RSV on 06/08. Recall patient was also started on oral Cefdinir on 06/07 per [facility] for treatment of suspected ear infection. Patient reports symptoms of low energy, lethargy, productive cough, and diarrhea since Monday 06/05. She reports that her dog has now developed similar symptoms at home. She denies N/V currently. She reports feeling fevers coming on. Patient does report loss of smell and taste. Patient was seen at [facility] on 06/06, [facility] on 06/07, and again on [facility] on 06/08. congestion, diarrhea, chills. Fo [...] clinic yesterday, she developed diarrhea. She did picker packer her Cefdinir and started it. States that she continues to have ear pain. She also disclose that she has made a dramatic change in diet in the past week. States she has gone to a carnivore diet. She has eliminated all sugar from her [...] to establish care. She was seen in [facility] on 03/03 for refill on her [...] out. She states that she lives in [place] and is needing a emotional support animal. [...] does not have to. She went to [facility] a few days ago and states that [...] CARIDAD letter med refill Needing to [facility] and get med refill on metoprolol 50mg BID. [facility]pitations[facility]. Functional Status Date [...] PRN for fevers or body aches per tank systems maintainer's instructions. - Patient to follow-up with PCP [...]
--- OUTSIDE RECORDS SUMMARY | 2024-09-30 16:36 | XMS_ITS | Encounter Summary ---
Author Organization [facility] Address [address] [place] [address] Phone Care Team Providers Care Vibrator Equipment Tester Name Role Phone Provider, None Primary Care Provider Unavailabl Aubree Cruz APRN, EGG TRAYER Primary Care Provider [phone] Mana Hinson Unavailable Unavailable Niranjan Valdez MD Unavailable Pamella SortoW Unavailable Unavailab le Reason for Visit * Reason Comments Medication Refill Encounter Details Date Type Department Care Team (Late st Contact Info) Description 04/04/2021 Refill [facility] - [address] [place] [address] Jennifer Mcwilliams Ella, PAC [address] [place] [address] Medication Refill Social History Tobacco Use Types Packs/Day Years Used Date Smoking Tobacco: Former Cigarettes 0 07/01/2015 - 06/30/2016 Smokeless Tobacco: Never Alcohol Use Standard Drinks/Week Comments No 0 (1 standard drink = 0.6 oz pur e alcohol) Sexually Active Control Partners Comments Yes Male Comments No Sex and Gender Information Value Date Recorded Sex Assigned at Female 03/05/2024 12:21 AM GLASS INSTALLER TECHNICIAN Legal Sex Female 8:44 PM CDT Gender Identity Female 03/05/2024 12:21 AM GLASS INSTALLER TECHNICIAN Sexual Orientation Not on file Occupation Industry [...] documented as of this encounter Care Teams Vibrator Equipment Tester Relationship Specialty Start Date End Date Provider, None [place] PCP - General 11/26/21 02/29/24 Aubree Alvarez, EDUCATION DEPARTMENT REGISTRAR, EGG TRAYER [address] [place] [address] PCP - General Certified Nurse Practitioner 03/01/24 Mana Hinson Health Cook'S Assistant 03/03/24 03/18/24 Niranjan Valdez MD [address] [address] Consulting Physician Urology 03/14/24 Pamella Sorto LSW [place] Technical Asst Medical Typist 08/04/24 08/10/24 documented as of this encounter
--- OUTSIDE RECORDS SUMMARY | 2024-09-30 16:36 | XMS_ITS | Patient Health Record ---
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 She reports that she is starting to do more things, like being outside and crafts. Social Activities-- Client reports that she has a good support system, but that she doesn't have any friends due to her trust issues. Spiritual Affiliation- Believes in god, does not go to jehovah's witness Probation/Legal trouble/?- Client reports having three DUI's, but hopes to get her license back in the near future. Client reports making poor decisions involving drugs. LEGAL: Client is currently on parole. Recently released from long-term. Client has a previous possession charge and 3 DUI's. Client was incarcerated at [facility] until 05/14/2020. Felony. PARENTING- Client reports that her substance use affected her role as a parent. 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 She reports that she is starting to do more things, like being outside and crafts. Social Activities-- Client reports that she has a good support system, but that she doesn't have any friends due to her trust issues. Spiritual Affiliation- Believes in god, does not go to jehovah's witness Probation/Legal trouble/?- Client reports having three DUI's, but hopes to get her license back in the near future. Client reports making poor decisions involving drugs. LEGAL: Client is currently on parole. Recently released from long-term. Client has a previous possession charge and 3 DUI's. Client was incarcerated at [facility] until 05/14/2020. Felony. PARENTING- Client reports that her substance use affected her role as a parent. 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 She reports that she is starting to do more things, like being outside and crafts. Social Activities-- Client reports that she has a good support system, but that she doesn't have any friends due to her trust issues. Spiritual Affiliation- Believes in god, does not go to jehovah's witness Probation/Legal trouble/?- Client reports having three DUI's, but hopes to get her license back in the near future. Client reports making poor decisions involving drugs. LEGAL: Client is currently on parole. Recently released from long-term. Client has a previous possession charge and 3 DUI's. Client was incarcerated at [facility] until 05/14/2020. Felony. PARENTING- Client reports that her substance use affected her role as a parent. 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 Client reports making poor decisions involving drugs. LEGAL: Client is currently on parole. Recently released from long-term. Client has a previous possession charge and 3 DUI's. Client was incarcerated at [facility] until 05/14/2020. Felony. 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 She reports that she is starting to do more things, like being outside and crafts. Social Activities-- Client reports that she has a good support system, but that she doesn't have any friends due to her trust issues. Spiritual Affiliation- Believes in god, does not go to jehovah's witness Probation/Legal trouble/?- Client reports having three DUI's, but hopes to get her license back in the near future. Client reports making poor decisions involving drugs. LEGAL: Client is currently on parole. Recently released from long-term. Client has a previous possession charge and 3 DUI's. Client was incarcerated at [facility] until 05/14/2020. Felony. 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 She reports that she is starting to do more things, like being outside and crafts. Social Activities-- Client reports that she has a good support system, but that she doesn't have any friends due to her trust issues. Spiritual Affiliation- Believes in god, does not go to jehovah's witness Probation/Legal trouble/?- Client reports having three DUI's, but hopes to get her license back in the near future. Client reports making poor decisions involving drugs. LEGAL: Client is currently on parole. Recently released from long-term. Client has a previous possession charge and 3 DUI's. Client was incarcerated at [facility] until 05/14/2020. Felony. PARENTING- Client reports that her substance use affected her role as a parent. Problems Problem Type SNOMED Code ICD Code Onset Dates Problem Status W/U Status Risk Notes Problem Posttraumatic stress disorder (77988210) Post traumatic stress disorder (F43.10) Active confirmed Problem Generalized anxiety disorder (83487682) PENNY (generalized anxiety disorder) (F41.1) Active confirmed Problem Acute stress disorder (97677659) Stress reaction (F43.0) Active confirmed Encounters Encounter Location Date Provider Diagnosis [facility] [address] [place] [address] 10/09/2023 Lynette Dahl Plan Of Treatment No Information Insurance Providers Payer Name Payer Address Payer Phone Subscriber Number Group Number Insured Name Patient Relationship to Insured Coverage Start Date Coverage End Date MEDICAID [address] [place] [address] [id number] Parisa Gee Self - patient is the insured 1 1 [facility] Plan [address] [place] [id number] Parisa eGe Self - patient is the insured [address] [address] [id number] 4 Parisa Gee Self - patient is the insured 1 Medical (General) History Medical History History ICD Code heart palpitation constipation irritable bowel syndrome Surgical History Surgery Date(Month/Year) appendectomy cholecystectomy c section PARTIAL HYSTERECTOMY tonsilectomy
--- OUTSIDE RECORDS SUMMARY | 2024-09-30 16:36 | XMS_ITS ---
Author Organization [facility] Address [address] [place] [address] Care Team Providers Care Construction Craft Laborer Name Role Phone Farzaneh Padron Primary Care Provider [phone] Hanny Monet REASON FOR VISIT On CRU- New Eval Encounters Encounter Location Date Provider Diagnosis [place] [address] [facility] [address] 09/16/2023 Farzaneh Padron Plan Of Treatment No Information Progress Notes * Mike GEEOB: [birth year] (44 yo F)Acc No.[id number]:09/16/2023 UNLOCKED PROGRESS NOTE Patient: Parisa BOYD Provider: Jason Padron DNP, PMHNP-BC, LAUNDERETTE ATTENDANT :1980 A ge:43 Y S ex:Female Date:09/16/2023 Address:[address] [place], [place] [address] Subjective: * Chief Complaints: * 1 . On CRU- New Eval. * Medical History: Objective: * Vitals: Assessment: Plan: * Treatment: * * Electronic signature of Neda Padron on 09/30/2024 at 04:35 PM CDT Sign off status: Pending * Provider: Jason Padron DNP, PMHNP-BC, LAUNDERETTE ATTENDANT Date: 09/16/2023 Generated for Printing/Faxing/eTransmitting on: 09/30/2024 04:35 PM CDT
--- OUTSIDE RECORDS SUMMARY | 2024-09-30 16:36 | XMS_ITS | Clinical Summary ---
Author Organization [facility] Address [facility] [place] [address] Care Team Providers Care Party Plan Dealer Name Role Phone None, Provider MD Primary [...] Comments Blood Pressure 106/85 02/17/2019 6:51 PM BROOMMAKING SUPERVISOR Pulse 91 02/17/2019 6:51 PM BROOMMAKING SUPERVISOR Temperature 37.1 C (98.7 F) 02/17/2019 6:51 PM BROOMMAKING SUPERVISOR Respiratory Rate 19 02/17/2019 6:51 PM BROOMMAKING SUPERVISOR Oxygen Saturation 98% 02/17/2019 6:51 PM BROOMMAKING SUPERVISOR Inhaled Oxygen Concentration - - Weight 61.9 kg (136 lb 7.4 oz) 02/17/2019 6:55 P M BROOMMAKING SUPERVISOR Height 154.9 cm (5' 1) 02/17/2019 6:51 PM BROOMMAKING SUPERVISOR Body Mass Index 25.78 02/17/2019 6:51 PM BROOMMAKING SUPERVISOR Plan of Treatment Health Maintenance Due Date [...] complete this topic Insurance MEDICAID Care Teams Party Plan Dealer Relationship Specialty Start Date End Date None, Provider, PCP - General 02/17/19
--- OUTSIDE RECORDS SUMMARY | 2024-09-30 16:36 | XMS_ITS | Continuity of Care Document ---
Author Organization [facility] Address [address] [id number] [address] Phone Care Team Providers Care Door Liner Name Role Phone Linda Ng Unavailable Unavailable [...] 15:44:56 NEGATIVE mg/dL Negative Final Urine Specific [place] 4 15:44:56 1.020 1.000-1.030 Final Urine Blood [...] Providers Copied on Encounter OFFICE/OUTPA TIENT VISIT [facility], [id number], [id number], [place] tel:[phone] Family Medicine F1 Express Care Follow-up (chief complaint) Acute coughLeft flank painHistory of kidney stonesViral respiratory illness Apr- 4 Areli Mckeon. [address], [place], [id number], [place]. tel:[phone] Referring Provider: Linda Singleton, [address] [place], [address] . tel:[phone] OFFICE/OUTPA TIENT VISIT [facility], [id number] [id number], [address], [place] tel:[phone] Medical Express Care congestion, diarrhea, chills. (chief complaint) Acute cough Apr-0 4 Frandy Ma. [address], [place], [address], [place]. tel:[phone] Referring Provider: Francesca Wise, [address] [place], [address] . tel:[phone] OFFICE/OUTPA TIENT VISIT [facility], [id number]- [place], [address], [place] tel:[phone] [facility] cough ,congection (chief complaint) Acute coughNon-recurre nt acute suppurative otitis media of right ear without spontaneous rupture of tympanic membrane 4 Frandy Ma. [address], [place], [address], [place]. tel:[phone] Referring Provider: Francesca Wise, [address] [place], [address] . tel:[phone] OFFICE/OUTPA TIENT VISIT [facility], [id number] [id number], [address], [place] tel:[phone] Family Medicine F1 hematocrit is low (chief complaint)w ants hormones levels checked. (chief complaint)n europathy (chief complaint)j oint pain (chief complaint) Vitamin B12 deficiency anemia, unspecifiedVitam in D deficiencyFatigu ePain in jointIron deficiency anemia, unspecified 4 Sampson Lira. [address], [place], [address], [place]. tel:[phone] Referring Provider: Soraya Reyes, [address] [place], [address] . tel:[phone] [facility], [address] [place], [address], [place] tel:[phone] Family Medicine F1 Low incomeInsufficie nt Social Insurance or Welfare Support 4 Coordinator Eagle. [address], [place], [address], [place]. tel:[phone] Referring Provider: Eagle ulloa, [address] [place], [address] . tel:[phone] [facility], [address] 1406[place], [address], [place] tel:[phone] Family Medicine F1 Vitamin D deficiency, unspecifiedEncnt r screen mammogram for malignant neoplasm of breastEncounter for screening for cardiovascular disordersIron deficiency anemia, unspecifiedVitam in B12 deficiency anemia, unspecifiedOther fatigue 4 Sampson Lira. [address], [place], [address], [place]. tel:[phone] Referring Provider: Soraya Reyes, [address] [place], [address] . tel:[phone] OFFICE/OUTPA TIENT VISIT EST [facility], [id number] 1749770NW[place], [address], [place] tel:[phone] Family Medicine F1 establish care (chief complaint)E SA letter (chief complaint) Encounter for screening mammogram for Ca of breastEncounter for screening for cardiovascular disordersIron deficiency anemiaFatigueVit rubalcava B12 deficiency anemia, unspecifiedVitam in D deficiencyBody mass index (BMI) 27.0-27.9, adult 4 Sampson Lira. [address], [place], [address], [place]. tel:[phone] Referring Provider: Soraya Reyes, [address] [place], [address] . tel:[phone] [facility], [id number] 4654741PQ[place], [address], [place] tel:[phone] [facility] med refill (chief complaint) Cardiac arrhythmia, unspecified cardiac arrhythmia type 4 Marlena Millan. [address], [place], [address], [place]. tel:[phone] Referring Provider: Monty Mendiola, [address] [place], [address] . tel:[phone] Family History Family Member Type Diagnosis Age At Onset No Information Payers Payer name Insurance type Covered constitution party ID Maria C cabezas(flores [place] Medicaid [place] [id number] Social History Type Description Quantity Date Captured [...] For Visit From encounter dated '06/11/2023 15:00'. [facility] Follow-up (chief complaint). Description: Has been tested at [facility] for Covid SARS. Pt has had shortness of breath and other flu symptoms since Thursday.. Pt has no energy and feels lethargic. Was given an antibiotic at [facility]. HHMs. Gee presents to my office today as a fo llow-up from recent [facility] visits on both 06/07 and 06/08. Patient tested negative for SARs andInfluenza on 06/07 and again tested negative for SARs, Influenza, and RSV on 06/08. Recall patient was also started on oral Cefdinir on 06/07 per [facility] for treatment of suspected ear infection. Patient reports symptoms of low energy, lethargy, productive cough, and diarrhea since Monday 06/05.She reports that her dog has now developed similar symptoms at home. She denies N/V currently. She reports feeling fevers coming on. Patient does report loss of smell and taste. Patient was seen at [facility] on 06/06, [facility] on 06/07, and again on [facility] on 06/08. Reason For Referral Reason For Referral No Information Plan Of Treatment Date Type Action Status Goal Dietary manageme nt education, guidance, and counseling completed Goal Dietary manageme nt education, guidance, and counseling completed Referral Ordered: Medicaid Expansion (related to Low income) ordered Referral Ordered: Referrals: Location: [facility] ordered Referral Ordered: Referrals: mammogram ordered Future Order: Radiology Order Ab domen - 1 View ([id number]), Ordered on: Ordered History Of Present Illness Encounter Date Complaint History Of Prese nt Illness [facility] Care Follow-up Has been tested at [facility] for Covid SARS. Pt has had shortness of breath and other flu symptoms since Thursday.. Pt has no energy and feels lethargic. Was given an antibiotic at [facility]. HHMs. Gee presents to my office today as a follow-up from recent [facility] visits on both 06/07 and 06/08. Patient tested negative for SARs and Influenza on 06/07 and again tested negative for SARs, Influenza, and RSV on 06/08. Recall patient was also started on oral Cefdinir on 06/07 per [facility] for treatment of suspected ear infection. Patient reports symptoms of low energy, lethargy, productive cough, and diarrhea since Monday 06/05. She reports that her dog has now developed similar symptoms at home. She denies N/V currently. She reports feeling fevers coming on. Patient does report loss of smell and taste. Patient was seen at [facility] on 06/06, [facility] on 06/07, and again on [facility] on 06/08. congestion, diarrhea, chills. Fo urth [...] clinic yesterday, she developed diarrhea. She did order picker/assembler her Cefdinir and started it. States that [...] to establish care. She was seen in [facility] on 03/03 for refill on her [...] out. She states that she lives in [place] and is needing a emotional support animal. [...] does not have to. She went to [facility] a few days ago and states [...] CARIDAD letter med refill Needing to [facility] and get med refill on metoprolol 50mg BID. [facility]akes for palpitations[facility]. Functional Status Date [...] PRN for fevers or body aches per bridge mechanic's instructions. - Patient to follow-up with PCP [...]
--- OUTSIDE RECORDS SUMMARY | 2024-09-30 16:36 | XMS_ITS | Clinical Summary ---
Author Organization [facility] Address [address] [place] [address] Phone Care Team Providers Care Motorsports Technician Name Role Phone AntonioAubree Shaquille ELLIOTT, RETAIL DIRECTOR Primary Care Provider [phone] Niranjan Valdez MD Unavailable Allergies Active Allergy [...] Tablet by mouth daily. 90 Tablet 2 5 Active ciprofloxacin (CIPRO) 500 MG Tablet take 1 tablet by mouth every 12 hours for 7 days 5 Active valACYclovir (VALTREX) 1 GM Tablet Take 1 Tablet by mouth 2 times daily. 20 Tablet 5 Active cromolyn (OPTICROM) 4 % SolutionIndications :Allergic conjunctivitis of both eyes Place 1 Drop in affected eye(s) 4 times daily. Use in affected eye(s) until resolved 10 mL 5 Active buPROPion (WELLBUTRIN) 150 MG XL tablet TAKE 1 TABLET BY MOUTH ONCE DAILY IN THE MORNING 90 Tablet 5 Active metoprolol tartrate (LOPRESSOR) 50 MG TabletIndications:T achycardia Take 1 tablet by mouth twice daily 60 Tablet 2 5 Active Active Problems Problem Noted Date Diagnosed [...] Encounters Date Type Department Care Team Description 09/26/2024 Telephone [facility] Call Center [address] [place] [phone] Aubree Alvarez, PERFORMANCE IMPROVEMENT DIRECTOR, RETAIL DIRECTOR Need Order 09/06/2024 Nurse Triage [facility] Central Call [address] [phone] Aubree Alvarez, PERFORMANCE IMPROVEMENT DIRECTOR, RETAIL DIRECTOR Depression; Anxiety 08/27/2024 [facility]ill [facility] [place] [id number] [place] [address] Aubree Alvarez, PERFORMANCE IMPROVEMENT DIRECTOR, RETAIL DIRECTOR Medication Refill 08/17/2024 Telephone [facility] [address] [place] [phone] Aubree Alvarez, PERFORMANCE IMPROVEMENT DIRECTOR, RETAIL DIRECTOR Prior Authorization (olopatadine (PATADAY) 0.2 % Solution) 08/10/2024 Patient Outreach [facility] [employer] [facility] [address] [place] [address] Pamella Sorto LSW Care Management ( outreach) 08/04/2024 10:30 AM CDT Office Visit [facility] [place] [address] [place] [phone] Aubree Alvarez APRN, RETAIL DIRECTOR Poison yoan (Primary Dx); Anxiety; Allergic conjunctivitis of both eyes Discharge Disposition: Discharged to home or Selfcare 08/04/2024 Telephone [place] [address] [facility] [place] [phone] Aubree Alvarez, LEXI, RETAIL DIRECTOR Medication Refill 08/04/2024 Patient Outreach [facility] [employer] [facility] [facility] [address] [place] [address] Alisson Mckeon BSW Care Management (Reach out about Enrollment-First attempt) 08/04/2024 Travel 08/03/2024 Nurse Triage [facility] Call Center [address] [place] [address] Aubree Alvarez, LEXI, RETAIL DIRECTOR Rash 07/27/2024 Refill [place] [address] [place] [phone] Aubree Alvarez APRN, RETAIL DIRECTOR Medication Refill 07/06/2024 Results Follow-Up [address] [place] [place] [phone] Javy Hanson MD SYPHILIS IGG/IGM W/REFLEX, HIV 1 & 2 ANTIBODY & ANTIGEN SCREEN, CHLAMYDIA & GC DNA PROBE > 12, Additional followed-up results: 2 07/05/2024 1:40 PM CDT Lab [place] [place] [phone] Lab, [facility] STD exposure Discharge Disposition: Discharged to home or Selfcare 07/05/2024 1:15 PM CDT Office Visit [facility] [address] [place] [phone] Javy Hanson MD STD exposure (Primary Dx); Rash of face Discharge Disposition: Discharged to home or Selfcare 07/05/2024 Travel 07/05/2024 Nurse Triage [facility] Center [address] [place] [address] Aubree Alvarez, PERFORMANCE IMPROVEMENT DIRECTOR, RETAIL DIRECTOR Advice Only; Sexually Transmitted Disease; Cold Sores (/) from Last 3 Months Immunizations Immunization Administration Dates Next Due Covid-19, Mrna, Lnp-s, Pf, T ris-sucrose, 30 Mcg/0.3 Ml (Riskified) 01/27/2023 Family History Medical History Relation Name [...] drink = 0.6 oz pur e alcohol) DinnerTime Utilities Answer Date Recorded In the past 12 months has stylefruits, gas, oil, or water [employer] threatened to shut off services in your home? Patient declined 03/05/2024 Social Connection and Isolation Panel Answer Date Recorded In a typical week, how many times do you talk on the phone with family, friends, or neighbors? Patient declined 03/05/2024 How often do you get togethe r with friends or relatives? Patient declined 03/05/2024 How often do you attend mormon or confucianism serv ices? Patient declined 03/05/2024 Do you belong to any clubs o r organizations such as mormon groups, unions, fraternal or athletic groups, or [...] Score - Questions 1-9 16 05/0 07/2024 [facility]ational Stress Questionnaire Answer Date [...] time in the past 12 m [facility], were you homeless or living in a mcc (including now)? Patient declined 03/05/2024 Sexually Active Control Partners Comments Yes Male Comments No Sex and Gender Information Value Date Recorded Sex Assigned at Female 03/05/2024 12:21 AM SPRING PRODUCTION SUPERVISOR Legal Sex Female 8:44 PM CDT Gender Identity Female 03/05/2024 12:21 AM SPRING PRODUCTION SUPERVISOR Sexual Orientation Not on file Occupation [...] this topic Medical Devices Explanted Type Area Fsr Device Identifier Shelf Expiration Date Model / Serial / Lot Stent Ureteral 5fr 2.1fr 24cm 2 Pigtail Curve 2 Durometer Taper Tip Loprfl Graduated Polaris Ultra - [id number] Implanted:Qty : 1 on 03/05/2024 by Niranjan Valdez MD at [facility] Explanted:Qty : 1 on [facility] IMPLANT Left: Ureter IMT ([employer]) 07/20/2026 [id number] / [id number] / [id number] Procedures Procedure Name Priority Date/Time Associated Diagnosis [...] HEPATITIS C ANTIBODY Routine 03/01/2024 11:53 AM SPRING PRODUCTION SUPERVISOR High risk sexual behavior, unspecified type HM COLONOSCOPY Routine 08/14/2017 from Last 3 Months or Most Recently Relevant to Health Maintenance Results * HIV 1 & 2 ANTIBODY & ANTIGEN SCREEN (07/05/2024 1:56 PM CDT) HIV 1 & 2 ANTIBODY & ANTIGEN SCREEN NON DETECTED NON DETECTED 07/05/2024 10:20 PM CDT [facility] Blood Venipuncture / Unknown 07/05/2024 1:56 PM CDT 07/05/2024 1:56 PM CDT us Javy Hanson MD CHEMISTRY ORDERABLES Tori l Result Performing Organization Address [facility] Co de Phone Number [facility] [address] [place] [address], [place] * CHLAMYDIA & GC DNA PROBE > 12 (07/05/2024 1:56 PM CDT) CHLAMYDIA DNA NEGATIVE NEGATIVE 07/06/2024 5:38 AM CDT [facility] Comment: Presumed negative for C. trachomatis. A negative result does not preclude C. trachomatis infection because results are dependent on adequate specimen collection, absence of inhibitors, and sufficient DNA to be detected. This test was performed using DALE 5800 Real Time PCR. GC DNA NEGATIVE NEGATIVE 07/06/2024 5:38 AM CDT [facility] Comment: Presumed negative for N. gonorrhoeae. A negative result does not preclude N. gonorrhoeae infection because results are dependent on adequate specimen collection, absence of inhibitors, and sufficient DNA to be detected. This test was performed using DALE 5800 Real Time PCR. Other URINE / Unknown Non-Phlebotomy Collection / Unknown 07/05/2024 1:56 PM CDT 07/05/2024 1:56 PM CDT us Javy Hanson MD MICROBIOLOGY - GENERAL OR DERABLES Final Result Performing Organization Address City/[facility] Co de Phone Number [facility] [address] [place] [address], [place] * SYPHILIS IGG/IGM W/REFLEX (07/05/2024 1:56 PM CDT) SYPHILIS IGG/IGM Nonreactive Nonreactive 07/05/2024 10:20 PM CDT [facility] Blood Venipuncture / Unknown 07/05/2024 1:56 PM CDT 07/05/2024 1:56 PM CDT us Javy Hanson MD IMMUNOLOGY ORDERABLES Fin al Result Performing Organization Address [facility] Co de Phone Number [facility] [address] [place] [address], [place] * (ABNORMAL) HSV TYPE II IGG ANTIBODY (07/05/2024 1:56 PM CDT) HSV TYPE 2 IGG AB >8.0(H) <1.1 AI 07/05/2024 10:33 PM CDT [facility] Comment: <0.9 Negative. No detectable HSV-2 IgG antibody. 0.9 - 1.0 Equivocal >=1.1 Positive Antibody testing was performed by multiplex flow immunoassay on the BioPlex platform. Blood Venipuncture / Unknown 07/05/2024 1:56 PM CDT 07/05/2024 1:56 PM CDT Javy Hanson MD CHEMISTRY ORDERABLES Tori l Result Performing Organization Address [facility] Co de Phone Number [facility] [address] [place] [address], [place] * HSV TYPE I IGG ANTIBODY (07/05/2024 1:56 PM CDT) [facility] HSV TYPE 1 IGG AB 0.3 <1.1 AI 07/05/2024 10:33 PM CDT [facility] Comment: <0.9 Negative. No detectable HSV-1 IgG antibody. 0.9 - 1.0 Equivocal >=1.1 Positive Antibody testing was performed by multiplex flow immunoassay on the BioPlex platform. Blood Venipuncture / Unknown 07/05/2024 1:56 PM CDT 07/05/2024 1:56 PM CDT Javy Hanson MD CHEMISTRY ORDERABLES Tori l Result Performing Organization Address City/[facility]/ZIP Co de Phone Number [facility] [address] [place] [address], [place] * HEPATITIS C ANTIBODY (03/01/2024 11:53 AM SPRING PRODUCTION SUPERVISOR) hepatitis C antibody 0.08 <1 S/CO 03/01/2024 10:58 PM SPRING PRODUCTION SUPERVISOR [facility] Comment: Signal/Cutoff ratio < 0.79 is Nondetected Signal/Cutoff ratio 0.80-0.99 is Grayzone Signal/Cutoff ratio > 0.99 is Detected Supplemental assays are recommended if signal/cutoff ratio is >/=1.00. Signal/cutoff ratio result >/= 5.00 is 97% predictive of positivity for recombinant immunoblot assay (RIBA) and will be reported to the [place] Department of Public Health as required. Blood Venipuncture / Unknown 03/01/2024 11:53 AM SPRING PRODUCTION SUPERVISOR 03/01/2024 11:53 AM SPRING PRODUCTION SUPERVISOR us Aubree Alvarez APRN, RETAIL DIRECTOR CHEMISTRY ORDERABLES Final Result [facility] [address] [place] [address], * COLONOSCOPY (08/14/2017) us David Liz MD PROCEDURE/MINOR [...] all measures to stabilize patient. Care Teams Motorsports Technician Relationship Specialty Start Date End Date Aubree Alvarez, PERFORMANCE IMPROVEMENT DIRECTOR, RETAIL DIRECTOR [address] [place] [address] PCP - General Certified Nurse Practitioner 03/01/24 Niranjan Valdez MD [address] [address] Consulting Physician Urology 03/14/24
[2024-09-30 16:37] VITALS: BP 106/74; PULSE 102; RESP 16; TEMP 36.1; O2SAT 100
--- NOTE | 2024-09-30 16:48 | ED_ITS ---
HPI - Ear Problem General Chief complaint: Ear Stated complaint: ears/nausea/dizzy Time Seen by Provider: 09/30/24 16:48 Source: patient Mode of arrival: ambulatory Limitations: no limitations History of Present Illness HPI Narrative: 44-year-old female presented for complaint of right ear pain. Onset 3 days. Endorses dizziness and vomiting today due to the pain. Says dizziness is worse when closing her eyes. Denies nasal congestion, nausea, fevers or chills. Says she has been out of [facility] for a few days. Patient was seen in clinic 09/26, tested for STDs, has not picked up Rx doxycycline. Advised tests are negative. At that time pt reported right ear pain, and was informed she has fluid in the right ear. MD Complaint: ear pain Related Data Home Medications ?Medication ?Instructions ?Recorded ?Confirmed ?Last Taken ?Type bupropion HCl 150 mg 24 hr tablet, mg PO 03/13/24 Unknown History extended release metoprolol succinate 50 mg mg PO 03/13/24 Unknown History tablet,extended release 24 hr Allergies Allergy/AdvReac Type Severity Reaction Status Date / Time fentanyl Allergy Unknown Unknown Verified 09/30/24 16:46 ketorolac Allergy Unknown Unknown Verified 09/30/24 16:46 meperidine Allergy Unknown Unknown Verified 09/30/24 16:46 metoclopramide Allergy Unknown Unknown Verified 09/30/24 16:46 morphine Allergy Unknown Unknown Verified 09/30/24 16:46 promethazine Allergy Unknown Unknown Verified 09/30/24 16:46 Review of Systems Review of Systems: CONSTITUTIONAL: Denies malaise, chills, or fever. EYES: Denies visual changes, redness, or discharge. ENT: Denies rhinorrhea, congestion, sinus pain, and sore throat. Reports ear pain CARDIOVASCULAR: Denies chest pain, palpitations, or edema. RESPIRATORY: Denies cough or dyspnea. GASTROINTESTINAL: Denies abdominal pain, nausea, vomiting, diarrhea SKIN: Denies rash or itching. MUSCULOSKELETAL: Denies myalgia. NEUROLOGIC: Denies headache. All systems reviewed & are unremarkable except as noted in HPI and below PMFSH Past Medical History Medical History Depression Kidney stone Palpitations Surgical History Surgical History History of tonsillectomy H/O: hysterectomy Status post laser lithotripsy of ureteral calculus ureteral stent Family History Family History Mother Depression Hypertension Family history of elevated blood lipids Other Diabetes mellitus Family history of tuberculosis Social History Social History (Updated 09/30/24 @ 17:06 by Kristi Ventura APRN) Tobacco type: e-cigarettes/vaping Alcohol intake: former Substance use: former Substance use type: opiates Living arrangements: with family Gender identity (if verbalized by the patient): Female Comments At time of signature, agree with nursing past medical, surgical, social and family history. There is no relevant family history pertinent to the presenting complaint Exam Narrative: GENERAL: Well-appearing, and in no acute distress. EYES: PERRLA, conjunctivae clear ENT: Nares clear. Mucous membranes moist. Right TM erythematous, bulging and intact; canal not erythematous, no drainage, right tragal tenderness. Left TM normal light reflex. Oropharynx not erythematous without lesions. no drooling, no hoarseness, no trismus, uvula midline. NECK: Supple. No lymphadenopathy CHEST: Clear to auscultation, breath sounds equal. HEART: Regular rate and rhythm. No murmur heard. SKIN: Warm, dry, no rash. NEURO: Alert and oriented x3. PSYCH: Normal mood and affect Course Course Emergency Course: Patient is aware of diagnosis, understands and agrees to treatment plan. Anticipatory guidance given. Patient agrees to follow-up as directed and is aware of reasons to seek care at the emergency department. Portions of this record may have been created with voice recognition software Level of Care: Express Care Visit Vital Signs Vital signs: Vital Signs Temperature 97 F L 09/30/24 16:37 Pulse Rate 102 H 09/30/24 16:37 Respiratory Rate 16 09/30/24 16:37 Blood Pressure 106/74 09/30/24 16:37 Pulse Oximetry 100 09/30/24 16:37 Oxygen Delivery Room Air 09/30/24 16:37 Temperature 97 F L 09/30/24 16:37 Pulse Rate 102 H 09/30/24 16:37 Respiratory Rate 16 09/30/24 16:37 Blood Pressure 106/74 09/30/24 16:37 Pulse Oximetry 100 09/30/24 16:37 Oxygen Delivery Room Air 09/30/24 16:37 Reviewed Medical Decision Making MDM Narrative Medical decision making narrative: Discussed physical exam findings consistent with right AOM, dizziness likely secondary to the OM. Review prescriptions with patient. Rx zofran and loratadine for sx. Pt cannot tolerate metoclopramide due to it causing RLS. Advised supportive measures and signs/symptoms to go to the ER. Patient is appropriate for outpatient treatment and follow-up. Differential Diagnosis Differential Diagnosis: Coronavirus, strep pharyngitis, allergic rhinitis, upper respiratory tract infection, sinusitis, rhinosinusitis, nasopharyngitis, viral pharyngitis, otitis media, otitis externa, eustachian tube dysfunction, foreign body, cerumen impaction. Vital Signs Vital Signs: Vital Signs Temperature 97 F L 09/30/24 16:37 Pulse Rate 102 H 09/30/24 16:37 Respiratory Rate 16 09/30/24 16:37 Blood Pressure 106/74 09/30/24 16:37 Pulse Oximetry 100 09/30/24 16:37 Oxygen Delivery Room Air 09/30/24 16:37 Temperature 97 F L 09/30/24 16:37 Pulse Rate 102 H 09/30/24 16:37 Respiratory Rate 16 09/30/24 16:37 Blood Pressure 106/74 09/30/24 16:37 Pulse Oximetry 100 09/30/24 16:37 Oxygen Delivery Room Air 09/30/24 16:37 Discharge Plan Discharge Clinical Impression: Otitis media Patient Disposition: Home Condition: Stable Instructions: Antibiotic Form, Ear Infection (ED) Additional Instructions: Take antibiotics as directed. Recommend antihistamine such as Claritin, Zyrtec or Millie Flonase nasal spray, 1 spray in each nostril once daily until symptoms improve Tylenol every 8 hours as needed to reduce fever, pain Please schedule a follow-up visit with your PCP If your symptoms persist, change or worsen significantly, go to the emergency department for further evaluation. Patient Language: Amharic Prescriptions: New ondansetron 4 mg tablet,disintegrating 4 mg PO Q8H PRN (Reason: nausea and vomiting) Qty: 12 0RF amoxicillin-pot clavulanate 875-125 mg tablet 1 tablet PO Q12H 7 Days Qty: 14 0RF loratadine 10 mg tablet 10 mg PO DAILY PRN (Reason: allergy symptoms) Qty: 30 0RF No Action metoprolol succinate 50 mg tablet extended release 24 hr PO bupropion HCl 150 mg tablet extended release 24 hr PO cetirizine [Zyrtec] 10 mg tablet 10 mg PO DAILY Qty: 20 0RF doxycycline hyclate 100 mg capsule 100 mg PO BID Qty: 14 0RF Follow-up/Referrals: Valentin,Javy Carter MD [Primary Care Provider] - Stand Alone Forms: Work/School Release IP Time of Disposition: 17:02
== END 2024-09-30 17:02 | disposition home or self-care (01) ==
PROVIDERS: Emergency Provider Nurse Practitioner Family; PCP Internal Medicine
DX: H66.91 Otitis media, unspecified, right ear (principal); Z87.891 Personal history of nicotine dependence
CPT/HCPCS: 99213; G0463